=== PATIENT | female | born 1955 | race Caucasian/White ===

== ENCOUNTER 2020-07-08 13:27 | Emergency (ER) | payer MEDICARE, OTHER ==
[2020-07-08 13:33] VITALS: TEMP 97.6
[2020-07-08 14:26] LABS: Basophils # (A) 0.1 k/uL (0-0.2); Basophils % (A) 1 %; Eosinophils # (A) 0.2 k/uL (0-0.7); Eosinophils % (A) 3 %; HCT 46.1 % (34.0-46.0); HGB 15.6 gm/dL (11.4-16.0); Lymphocytes # (A) 1.2 k/uL (1.0-4.8); Lymphocytes % (A) 14 %; MCH 33.5 pg (25.0-35.0); MCHC 33.8 g/dL (31.0-37.0); MCV 99.2 fL (80.0-100.0); Mean Platelet Volume 8.2; Monocytes # (A) 0.5 k/uL (0-1.0); Monocytes % (A) 6 %; Neutrophils % (A) 76 %; Platelet Count 265 k/uL (150-450); RBC 4.65 m/uL (3.80-5.40); WBC 9.1 k/uL (3.8-10.6)
[2020-07-08 14:37] LABS: ALT 15 U/L (4-34); AST 36 U/L (14-36); African American GFR (CKD) >90 (>60 ml/min/1.73 sqM); Albumin 3.9 g/dL (3.5-5.0); Alkaline Phosphatase 77 U/L (38-126); Amylase 48 U/L (30-110); Anion Gap 8 mmol/L; Blood Urea Nitrogen 17 mg/dL (7-17); Calcium 9.1 mg/dL (8.4-10.2); Carbon Dioxide 35 mmol/L (22-30); Chloride 87 mmol/L (98-107); Glucose 132 mg/dL (74-99); Lipase 187 U/L (23-300); Non-African American GFR(CKD) >90 (>60 ml/min/1.73 sqM); Sodium 130 mmol/L (137-145); Total Bilirubin 0.8 mg/dL (0.2-1.3); Total Protein 7.7 g/dL (6.3-8.2)
[2020-07-08 14:39] LABS: Potassium 3.3 mmol/L (3.5-5.1)
--- NOTE | 2020-07-08 14:52 | XR ---
EXAMINATION TYPE: XR abdomen acute w cxr DATE OF EXAM: 07/08/2020 COMPARISON: NONE HISTORY: Abdominal pain and discomfort TECHNIQUE: Supine, upright, and left side down lateral decubitus views of the abdomen are obtained. FINDINGS: Limited inspiration. Subsegmental changes at the right lung base. Heart size upper limits o f normal. Curvature of the spine with arthropathy of the shoulders. Atherosclerotic change aorta. Calcifications in the pelvis are nonspecific but likely vascular. Scoliosis of the spine. Findings yi spicious for gallstones in the right upper quadrant. Air-fluid levels and prominent small bowel loops in the left abdomen. Hypertrophic change of the acetabulum noted. IMPRESSION: 1. Nonspecific abdomen with prominent small bowel loops and air-fluid levels could been the basis of an localized ileus, enteritis or partial obstructive pattern. Correlate clinically. 2. Probable gallstones. 3. Right basilar atelectasis favored over early infiltrate.
[2020-07-08 15:38] LABS: Appearance,Urine Cloudy (Clear); Bacteria,Urine Rare /hpf; Bilirubin,Urine Negative (Negative); Blood,Urine Negative (Negative); Color,Urine Yellow; Glucose,Urine (UA) Negative (Negative); Ketones,Urine 1+ (Negative); Leukocyte Esterase,Urine Negative (Negative); Mucus,Urine Rare /hpf; Nitrite,Urine Negative (Negative); PH, Urine 5.5 (5.0-8.0); Protein,Urine Trace (Negative); Specific Gravity,Urine 1.018 (1.001-1.035); Squamous Epithelial Cell,Urine 5 /hpf (0-4); WBC,Urine 2 /hpf (0-5)
--- NOTE | 2020-07-08 15:39 | CT ---
EXAMINATION TYPE: CT abdomen pelvis w con DATE OF EXAM: 07/08/2020 COMPARISON: None INDICATION: constipation DLP: 1630.1 mGycm, Automated exposure control for dose reduction was used. CONTRAST: 100 mL of Isovue 300. Study performed without Oral Contrast TECHNIQUE: Axial images were obtained from above the diaphragm to the pubic rami in the axial plane a t 5 mm thick sections. Reconstructed images are reviewed on the computer in the coronal plane. FINDINGS: There is an anterior abdominal wall hernia with an opening of 4.2 cm. This is containing sm all bowel loops as well as some fluid. There are prominent small bowel loops within the abdomen and p tiarra. Some wall thickening may be within the inferior small bowel loops. Small bowel loops distal to this area may has somewhat thickened wall immediate partially dilated. Limited CT sections are obtained the lung bases. The lung bases are clear. CT ABDOMEN: There is a small to moderate amount of ascites present. Liver: Some nonspecific small hypodensities are scattered within the liver. These are indistinct and are nonspecific. Small cysts could be considered. Spleen: Normal Pancreas: Normal Adrenal glands: The adrenal glands are normal. Gallbladder: Multiple gallstones are present. Kidneys: No masses are evident. No hydronephrosis is present. No cysts are present. Delayed images were obtained through the kidneys, which remain unremarkable. Aorta: Vascular calcification is within the aorta. Inferior vena cava: Normal. CT PELVIS: Visualized portions of the colon appear normal. This study is without oral contrast limiting bowel ev aluation. Appendix: Not visualized. No suspicious dilated tubular structures or inflammatory changes are eviden t. Urinary bladder: Some urinary bladder wall thickening may be present. Genitourinary structures: Uterus and ovaries are not identified. Osseous structures: Scoliosis is present. Degenerative changes are through the sacroiliac joints. IMPRESSIONS: 1. Anterior abdominal wall hernia containing loops of small bowel. 2. Small bowel wall thickening within the pelvis. Correlate for ileus. Partial obstruction could be c onsidered. 3. Cholelithiasis. 4. Ascites
[2020-07-08] MEDS ORDERED: MAGNESIUM CITRATE 296 ML BOTTLE PO ONE (16:09)
[2020-07-08] MEDS ORDERED: NA PHOS,M-B/NA PHOS,DI-BA 133 ML ENEMA RECTAL STA (16:09)
--- NOTE | 2020-07-08 16:22 | ED ---
Abdominal Pain HPI - General Chief Complaint: Abdominal Pain Stated Complaint: Constipation Time Seen by Provider: 07/08/20 13:44 Source: patient Mode of arrival: ambulatory Limitations: no limitations - History of Present Illness Initial Comments: Patient complains of decreased bowel movements. She also has a swelling in the anterior abdominal wall. Patient has no chest pain. She has no back pain. She has no shortness of breath. She has no nausea or vomiting. She has no blood in the stool. She has no black or tarry stool. She denies any sick contacts. She denies injuries. She has no lightheadedness or dizziness. - Related Data Home Medications Medication Instructions Recorded Confirmed Aspirin 325 mg PO DAILY PRN 07/08/20 07/08/20 Allergies Allergy/AdvReac Type Severity Reaction Status Date / Time No Known Allergies Allergy Verified 07/08/20 15:50 Review of Systems ROS Statement: Those systems with pertinent positive or pertinent negative responses have been documented in the HPI. ROS Other: All systems not noted in ROS Statement are negative. Past Medical History Past Medical History: No Reported History History of Any Multi-Drug Resistant Organisms: None Reported Past Surgical History: Appendectomy, Hysterectomy Past Psychological History: No Psychological Hx Reported Smoking Status: Current every day smoker Past Alcohol Use History: Daily Past Drug Use History: None Reported General Exam Limitations: no limitations General appearance: alert, in no apparent distress Head exam: Present: atraumatic, normocephalic, normal inspection Eye exam: Present: normal appearance, PERRL, EOMI. Absent: scleral icterus, conjunctival injection, periorbital swelling ENT exam: Present: normal exam, mucous membranes moist Neck exam: Present: normal inspection. Absent: tenderness, meningismus, lymphadenopathy Respiratory exam: Present: normal lung sounds bilaterally. Absent: respiratory distress, wheezes, rales, rhonchi, stridor Cardiovascular Exam: Present: regular rate, normal rhythm, normal heart sounds. Absent: systolic murmur, diastolic murmur, rubs, gallop, clicks GI/Abdominal exam: Present: soft, distended. Absent: tenderness, guarding, rebo und, rigid Extremities exam: Present: normal inspection, full ROM, normal capillary refill. Absent: tenderness, pedal edema, joint swelling, calf tenderness Back exam: Present: normal inspection Neurological exam: Present: alert, oriented X3, CN II-XII intact Psychiatric exam: Present: normal affect, normal mood Skin exam: Present: warm, dry, intact, normal color. Absent: rash Course Vital Signs 07/08/20 07/08/20 13:29 15:24 Temperature 97.6 F Pulse Rate 96 85 Respiratory 20 18 Rate Blood Pressure 150/90 100/59 O2 Sat by Pulse 98 96 Oximetry Medical Decision Making - Medical Decision Making Patient has a reducible hernia based on my physical examination and the CAT scan. There is no evidence of traction or incarceration or strangulation. Patient is given medication for her constipation. She is stable for discharge. - Lab Data Result diagrams: 07/08/20 14:10 07/08/20 14:10 Lab Results 07/08/20 07/08/20 07/08/20 Range/Units 14:10 14:10 14:10 WBC 9.1 (3.8-10.6) k/uL RBC 4.65 (3.80-5.40) m/uL Hgb 15.6 (11.4-16.0) gm/dL Hct 46.1 H (34.0-46.0) % MCV 99.2 (80.0-100.0) fL MCH 33.5 (25.0-35.0) pg MCHC 33.8 (31.0-37.0) g/dL RDW 13.0 (11.5-15.5) % Plt Count 265 (150-450) k/uL MPV 8.2 Neutrophils % 76 % Lymphocytes % 14 % Monocytes % 6 % Eosinophils % 3 % Basophils % 1 % Neutrophils # 7.0 (1.3-7.7) k/uL Lymphocytes # 1.2 (1.0-4.8) k/uL Monocytes # 0.5 (0-1.0) k/uL Eosinophils # 0.2 (0-0.7) k/uL Basophils # 0.1 (0-0.2) k/uL Sodium 130 L (137-145) mmol/L Potassium 3.3 L (3.5-5.1) mmol/L Chloride 87 L (98-107) mmol/L Carbon Dioxide 35 H (22-30) mmol/L Anion Gap 8 mmol/L BUN 17 (7-17) mg/dL Creatinine 0.63 (0.52-1.04) mg/dL Est GFR (CKD-EPI)AfAm >90 (>60 ml/min/1.73 sqM) Est GFR (CKD-EPI)NonAf >90 (>60 ml/min/1.73 sqM) Glucose 132 H (74-99) mg/dL Calcium 9.1 (8.4-10.2) mg/dL Total Bilirubin 0.8 (0.2-1.3) mg/dL AST 36 (14-36) U/L ALT 15 (4-34) U/L Alkaline Phosphatase 77 (38-126) U/L Total Protein 7.7 (6.3-8.2) g/dL Albumin 3.9 (3.5-5.0) g/dL Amylase 48 (30-110) U/L Lipase 187 (23-300) U/L Urine Color Yellow Urine Appearance Cloudy H (Clear) Urine pH 5.5 (5.0-8.0) Ur Specific Dietrich 1.018 (1.001-1.035) Urine Protein Trace H (Negative) Urine Glucose (UA) Negative (Negative) Urine Ketones 1+ H (Negative) Urine Blood Negative (Negative) Urine Nitrite Negative (Negative) Urine Bilirubin Negative (Negative) Urine Urobilinogen 2.0 (<2.0) mg/dL Ur Leukocyte Esterase Negative (Negative) Urine WBC 2 (0-5) /hpf Ur Squamous Epith Cells 5 H (0-4) /hpf Urine Bacteria Rare H (None) /hpf Urine Mucus Rare H (None) /hpf Disposition Clinical Impression: Constipation Disposition: HOME SELF-CARE Condition: Good Instructions (If sedation given, give patient instructions): Constipation (ED) Is patient prescribed a controlled substance at d/c from ED?: No Referrals: None,Stated [Primary Care Provider] - 1-2 days Yoseph Helms MD [STAFF PHYSICIAN] - 1-2 days
[2020-07-08 17:49] VITALS: BP 138/87; PULSE 86; RESP 16
== END 2020-07-08 17:49 | disposition home or self-care (01) ==
LOC: EC 13:27
DX: K59.00 Constipation, unspecified (principal); F17.200 Nicotine dependence, unspecified, uncomplicated; Z90.49 Acquired absence of other specified parts of digestive tract; Z90.710 Acquired absence of both cervix and uterus
CPT/HCPCS: 36415; 80053; 82150; 83690; 85025; 81001; 74022; 74177; 99284; Q9967

== ENCOUNTER 2023-01-14 20:46 | Observation (INO) | payer OTHER, MEDICARE ==
--- NOTE | 2023-01-14 21:49 | ED ---
Fall HPI - General Source: patient Mode of arrival: wheelchair <Michael Yeager - Last Filed: 01/14/23 21:45> <Ricco Alvarez - Last Filed: 01/15/23 03:13> - General Chief Complaint: Fall Stated Complaint: fall Time Seen by Provider: 01/14/23 21:46 - History of Present Illness Initial Comments: 67-year-old female presenting with chief complaint of rib pain. Patient had a fall about 3 weeks ago. She also reports clear runny nasal discharge. (Michael Yeager) Dictation was produced using [employer] dictation software. please excuse any grammatical, word or spelling errors. Chief Complaint: 67-year-old female presents emergency department for multiple complaints History of Present Illness: This 67-year-old female she is brought to the emergency department by her son. Patient states she is here because she is worried about having a cracked rib from a fall she suffered 4-5 weeks ago. Son provides a completely different history states that for the last several weeks she's been having worsening lethargy, abdominal pain, nausea and vomiting. She states that she has several months of a ventral wall hernia. She states she's been evaluated by general surgery however she states that she was told that her hernia is inoperable. Patient having significant abdominal pain according to t he son. Denies any fever or constitutional symptoms. The ROS documented in this emergency department record has been reviewed and confirmed by me. Those systems with pertinent positive or negative responses have been documented in the HPI. All other systems are other negative and/or noncontributory. (Ricco Alvarez) - Related Data Home Medications Medication Instructions Recorded Confirmed Aspirin 325 mg PO DAILY PRN 07/08/20 07/08/20 Allergies Allergy/AdvReac Type Severity Reaction Status Date / Time No Known Allergies Allergy Verified 01/14/23 21:50 Review of Systems ROS Other: All systems not noted in ROS Statement are negative. <Michael Yeager - Last Filed: 01/14/23 21:45> ROS Other: All systems not noted in ROS Statement are negative. <Ricco Alvarez - Last Filed: 01/15/23 03:13> ROS Statement: Those systems with pertinent positive or pertinent negative responses have been documented in the HPI. Past Medical History Past Medical History: No Reported History Additional Past Medical History / Comment(s): Hernia History of Any Multi-Drug Resistant Organisms: None Reported Past Surgical History: Appendectomy, Hysterectomy Past Psychological History: No Psychological Hx Reported Smoking Status: Current every day smoker Past Alcohol Use History: Daily Past Drug Use History: None Reported <Michael Yeager - Last Filed: 01/14/23 21:45> General Exam <Michael Yeager - Last Filed: 01/14/23 21:45> <Ricco Alvarez - Last Filed: 01/15/23 03:13> - General Exam Comments Initial Comments: Visual Physical Exam Vital signs reviewed General: Well-appearing, nontoxic, no acute distress. Head: Normocephalic, atraumatic Eyes: PERRLA, EOMI ENT: Airway patent Chest: Nonlabored breathing Skin: No visual rash, normal skin tone Neuro: Alert and oriented 3 Musculoskeletal: No gross abnormalities (Michael Yeager) PHYSICAL EXAM: General Impression: Alert and oriented x3, not in acute distress HEENT: Normocephalic atraumatic, extra-ocular movements intact, pupils equal and reactive to light bilaterally, mucous membranes moist. Cardiovascular: Heart regular rate and rhythm Chest: Able to complete full sentences, no retractions, no tachypnea Abdomen: abdomen soft, distended abdomen with large ventral wall hernia, hernia is irreducible it is tender to palpation, no overlying skin erythema, tympany to percussion of the entire abdomen Musculoskeletal: Pulses present and equal in all extremities, no peripheral edema Motor: no focal deficits noted Neurological: CN II-XII grossly intact, no focal motor or sensory deficits noted Skin: Intact with no visualized rashes Psych: Normal affect and mood (Ricco Alvarez) Course Vital Signs 01/14/23 01/15/23 01/15/23 21:42 02:11 02:57 Temperature 98.8 F Pulse Rate 77 92 98 Respiratory 20 18 17 Rate Blood Pressure 131/77 111/63 104/67 O2 Sat by Pulse 99 96 96 Oximetry Medical Decision Making - Lab Data Result diagrams: 01/15/23 00:09 01/15/23 00:09 <Ricco Alvarez - Last Filed: 01/15/23 03:13> - Medical Decision Making My EKG interpretation: Ventricular rate 99, sinus rhythm,. Interval 141, QRS 94, QTC 427. No OR prolongation, no QTC prolongation. T wave inversions 1 in aVL No old EKG for comparison. Overall this EKG is nonspecific Was pt. sent in by a medical professional or institution ([facility], [employer], urgent care, hospital, or assisted...) When possible be specific @ -No Did you speak to anyone other than the patient for history (EMS, parent, family, police, friend...)? What history was obtained from this source @ -No Did you review nursing and triage notes (agree or disagree)? Why? @ -I reviewed and agree with nursing and triage notes Were old charts reviewed (outside hosp., previous admission, EMS record, old EKG, old radiological studies, urgent care reports/EKG's, assisted records)? Report findings @ -No old charts were reviewed Differential Diagnosis (chest pain, altered mental status, abdominal pain women, abdominal pain men, vaginal bleeding, musculoskeletal, weakness, fever, dyspnea, syncope, headache, dizziness, GI bleed, back pain, seizure, CVA, palpatations, mental health)? @ -Differential Abdominal Pain Women: Appendicitis, Cholecystitis, diverticulosis, ischemic bowel, pancreatitis, hepatitis, UTI, gastroenteritis, AAA, incarcerated hernia, bowel obstruction, constipation, inflammatory bowel, hepatitis, peptic ulcer disease, splenic infarction, perforated viscus, vulvitis, ovarian torsion, PID, kidney stone, placenta abruption, this is not meant to be an all-inclusive list EKG interpreted by me (3pts min.). @ -See above X-rays interpreted by me (1pt min.). @ -She was not acute CT interpreted by me (1pt min.). @ -CT shows incarcerated hernia with abdominal ascites U/S interpreted by me (1pt. min.). @ -None done What testing was considered but not performed or refused? (CT, X-rays, U/S, lab s)? Why? @ -None What meds were considered but not given or refused? Why? @ -None Did you discuss the management of the patient with other professionals (professionals i.e. [facility]ksdale, [employer] S[employer]WRITER, lab, RT, psych nurse, high school social science teacher, retail sales advisor, teacher, major gifts officer, registered nurse hh case manager)? Give summary @ -Discussed Dr. Servin for admission. Case also discussed with Dr. Dawn regarding hernia Was smoking cessation discussed for >3mins.? @ -No Was critical care preformed (if so, how long)? @ -No Were there social determinants of health that impacted care today? How? (Homelessness, low income, unemployed, alcoholism, drug addiction, transportation, low edu. Level, literacy, decrease access to med. care, penitentiary, rehab)? @ -No Was there de-escalation of care discussed even if they declined (Discuss DNR or withdrawal of care, Hospice)? DNR status @ -No What co-morbidities impacted this encounter? (DM, HTN, Smoking, COPD, CAD, Cancer, CVA, ARF, Chemo, Hep., AIDS, mental health diagnosis, sleep apnea, morbid obesity)? @ -None Was patient admitted / discharged? Hospital course, mention meds given and rout e, prescriptions, significant lab abnormalities, going to OR and other pertinent info. @ -67-year-old female presents emergency problem with abdominal pain, worsening weakness. Vital signs upon arrival are within acceptable limits. Clinical presentation consistent incarcerated abdominal wall hernia. Patient also has findings of infiltrative liver process and worsening ascites. Patient be admitted with consultation to general surgery. Patient also hypomagnesemic with the level of 1.1. Patient treated with parenteral magnesium. Undiagnosed new problem with uncertain prognosis? @ -No Drug Therapy requiring intensive monitoring for toxicity (Heparin, Nitro, Insulin, Cardizem)? @ -No Were any procedures done? @ -No Diagnosis/symptom? Acute, or Chronic, or Acute on Chronic? Uncomplicated (without systemic symptoms) or Complicated (systemic symptoms)? @ -Abdominal pain Side effects of treatment? @ -No Exacerbation, Progression, or Severe Exacerbation? @ -No Poses a threat to life or bodily function? How? (Chest pain, [place], [place], pneumonia, PE, COPD, DKA, ARF, appy, cholecystitis, CVA, Diverticulitis, Homicidal, Suicida l, threat to staff... and all critical care pts) @ -yes (Ricco Alvarez) - Lab Data Lab Results 01/14/23 01/15/23 01/15/23 Range/Units 23:08 00:09 00:09 WBC 7.1 (3.8-10.6) k/uL RBC 2.93 L (3.80-5.40) m/uL Hgb 11.4 (11.4-16.0) gm/dL Hct 35.2 (34.0-46.0) % MCV 120.0 H (80.0-100.0) fL MCH 38.8 H (25.0-35.0) pg MCHC 32.4 (31.0-37.0) g/dL RDW 15.5 (11.5-15.5) % Plt Count 204 (150-450) k/uL MPV 8.7 Neutrophils % 79 % Lymphocytes % 11 % Monocytes % 5 % Eosinophils % 2 % Basophils % 0 % Neutrophils # 5.6 (1.3-7.7) k/uL Lymphocytes # 0.8 L (1.0-4.8) k/uL Monocytes # 0.3 (0-1.0) k/uL Eosinophils # 0.2 (0-0.7) k/uL Basophils # 0.0 (0-0.2) k/uL Manual Slide Review Performed Anisocytosis (manual) Present Macrocytosis Marked A Target Cells Present PT 14.1 H (9.0-12.0) sec INR 1.4 H (<1.2) APTT 23.8 (22.0-30.0) sec Sodium (137-145) mmol/L Potassium (3.5-5.1) mmol/L Chloride (98-107) mmol/L Carbon Dioxide (22-30) mmol/L Anion Gap mmol/L BUN (7-17) mg/dL Creatinine (0.52-1.04) mg/dL Est GFR (CKD-EPI)AfAm (>60 ml/min/1.73 sqM) Est GFR (CKD-EPI)NonAf (>60 ml/min/1.73 sqM) Glucose (74-99) mg/dL Plasma Lactic Acid Tl (0.7-2.0) mmol/L Calcium (8.4-10.2) mg/dL Magnesium (1.6-2.3) mg/dL Total Bilirubin (0.2-1.3) mg/dL AST (14-36) U/L ALT (4-34) U/L Alkaline Phosphatase (38-126) U/L Total Protein (6.3-8.2) g/dL Albumin (3.5-5.0) g/dL Influenza Type A (PCR) Not Detected (Not Detectd) Influenza Type B (PCR) Not Detected (Not Detectd) RSV (PCR) Not Detected (Not Detectd) SARS-CoV-2 (PCR) Not Detected (Not Detectd) 01/15/23 01/15/23 Range/Units 00:09 00:09 WBC (3.8-10.6) k/uL RBC (3.80-5.40) m/uL Hgb (11.4-16.0) gm/dL Hct (34.0-46.0) % MCV (80.0-100.0) fL MCH (25.0-35.0) pg MCHC (31.0-37.0) g/dL RDW (11.5-15.5) % Plt Count (150-450) k/uL MPV Neutrophils % % Lymphocytes % % Monocytes % % Eosinophils % % Basophils % % Neutrophils # (1.3-7.7) k/uL Lymphocytes # (1.0-4.8) k/uL Monocytes # (0-1.0) k/uL Eosinophils # (0-0.7) k/uL Basophils # (0-0.2) k/uL Manual Slide Review Anisocytosis (manual) Macrocytosis Target Cells PT (9.0-12.0) sec INR (<1.2) APTT (22.0-30.0) sec Sodium 135 L (137-145) mmol/L Potassium 3.1 L (3.5-5.1) mmol/L Chloride 97 L (98-107) mmol/L Carbon Dioxide 30 (22-30) mmol/L Anion Gap 8 mmol/L BUN 9 (7-17) mg/dL Creatinine 0.49 L (0.52-1.04) mg/dL Est GFR (CKD-EPI)AfAm >90 (>60 ml/min/1.73 sqM) Est GFR (CKD-EPI)NonAf >90 (>60 ml/min/1.73 sqM) Glucose 112 H (74-99) mg/dL Plasma Lactic Acid Tl 1.9 (0.7-2.0) mmol/L Calcium 8.2 L (8.4-10.2) mg/dL Magnesium 1.1 L (1.6-2.3) mg/dL Total Bilirubin 1.6 H (0.2-1.3) mg/dL AST 97 H (14-36) U/L ALT 26 (4-34) U/L Alkaline Phosphatase 146 H (38-126) U/L Total Protein 6.4 (6.3-8.2) g/dL Albumin 2.9 L (3.5-5.0) g/dL Influenza Type A (PCR) (Not Detectd) Influenza Type B (PCR) (Not Detectd) RSV (PCR) (Not Detectd) SARS-CoV-2 (PCR) (Not Detectd) Disposition <Michael Yeager - Last Filed: 01/14/23 21:45> Decision Time: 03:13 <Ricco Alvarez - Last Filed: 01/15/23 03:13> Clinical Impression: Abdominal pain Disposition: ADMITTED IP TO THIS HOSP Condition: Fair Referrals: Ellen Garcia MD [STAFF PHYSICIAN] - 1-2 days
--- NOTE | 2023-01-14 22:13 | XR ---
EXAMINATION TYPE: XR chest 2V DATE OF EXAM: 01/14/2023 9:59 PM COMPARISON: None TECHNIQUE: XR chest 2V Frontal and lateral views of the chest. CLINICAL INDICATION:Female, 67 years old with history of rib pain; FINDINGS: Lungs/Pleura: There is no evidence of pleural effusion, focal consolidation, or pneumothorax. Pulmonary vascularity: Unremarkable. Heart/mediastinum: Cardiomediastinal silhouette is unremarkable. Musculoskeletal: No acute osseous pathology. IMPRESSION: No acute cardiopulmonary disease/process.
[2023-01-15] MEDS ORDERED: SODIUM CHLORIDE 0.9% 1,000 ML IV STA (00:04)
[2023-01-15 01:08] LABS: ALT 26 U/L (4-34); AST 97 U/L (14-36); African American GFR (CKD) >90 (>60 ml/min/1.73 sqM); Albumin 2.9 g/dL (3.5-5.0); Alkaline Phosphatase 146 U/L (38-126); Anion Gap 8 mmol/L; Blood Urea Nitrogen 9 mg/dL (7-17); Calcium 8.2 mg/dL (8.4-10.2); Carbon Dioxide 30 mmol/L (22-30); Chloride 97 mmol/L (98-107); Glucose 112 mg/dL (74-99); Magnesium 1.1 mg/dL (1.6-2.3); Non-African American GFR(CKD) >90 (>60 ml/min/1.73 sqM); Potassium 3.1 mmol/L (3.5-5.1); Sodium 135 mmol/L (137-145); Total Bilirubin 1.6 mg/dL (0.2-1.3); Total Protein 6.4 g/dL (6.3-8.2)
[2023-01-15] MEDS ORDERED: POTASSIUM CHLORIDE 20 MEQ in WATER FOR INJECTION 1 100ML.BAG IVPB STA (01:21)
[2023-01-15 01:22] LABS: INR 1.4 (<1.2); Partial Thromboplastin Time 23.8 sec (22.0-30.0); Prothrombin Time 14.1 sec (9.0-12.0)
[2023-01-15] MEDS: MAGNESIUM SULFATE-D5W PMX 1 GM in DEXTROSE/WATER 1 100ML.BAG IVPB SCH ×2 (01:29→02:29)
[2023-01-15 01:53] LABS: Basophils % (A) 0 %; Eosinophils # (A) 0.2 k/uL (0-0.7); Eosinophils % (A) 2 %; HCT 35.2 % (34.0-46.0); HGB 11.4 gm/dL (11.4-16.0); Lymphocytes # (A) 0.8 k/uL (1.0-4.8); Lymphocytes % (A) 11 %; MCH 38.8 pg (25.0-35.0); MCHC 32.4 g/dL (31.0-37.0); Macrocytosis Marked; Mean Platelet Volume 8.7; Monocytes # (A) 0.3 k/uL (0-1.0); Monocytes % (A) 5 %; Neutrophils # (A) 5.6 k/uL (1.3-7.7); Neutrophils % (A) 79 %; Platelet Count 204 k/uL (150-450); RBC 2.93 m/uL (3.80-5.40); RDW 15.5 % (11.5-15.5); WBC 7.1 k/uL (3.8-10.6)
[2023-01-15 02:59] LABS: Anisocytosis (M) Present
--- NOTE | 2023-01-15 02:59 | CT ---
EXAM: CT Abdomen and Pelvis With Intravenous Contrast CLINICAL HISTORY: ITS.REASON CT Reason: abdominal pain TECHNIQUE: Axial computed tomography images of the abdomen and pelvis with intravenous contrast. CTDI is 16.5 mGy and DLP is 1772.2 mGy-cm. This CT exam was performed using one or more of the following dose reduction techniques: automated exposure control, adjustment of the mA and/or kV according to patient size, and/or use of iterative reconstruction technique. COMPARISON: 07/08/2020 FINDINGS: Lung bases: Unremarkable. No mass. No consolidation. ABDOMEN: Liver: There is a somewhat heterogeneous enhancement pattern to the liver parenchyma suggesting underlying infiltrative process particularly within the caudate lobe which is markedly enlarged. MRI may be helpful for further evaluation. Gallbladder and bile ducts: Cholelithiasis. No ductal dilation. Pancreas: Unremarkable. No mass. No ductal dilation. Spleen: Unremarkable. No splenomegaly. Adrenals: Unremarkable. No mass. Kidneys and ureters: Unremarkable. No solid mass. No hydronephrosis. Stomach and bowel: See below. PELVIS: Appendix: No findings to suggest acute appendicitis. Bladder: Unremarkable. No mass. Reproductive: Unremarkable as visualized. ABDOMEN and PELVIS: Intraperitoneal space: Interval worsening in large intra-abdominal ascites with increasing fatty infiltration of the liver. No free air or intestinal obstruction. Bones/joints: No acute fracture. No dislocation. Soft tissues: See below. Vasculature: Portal hypertension with recanalization of the umbilical vein unchanged since prior exam gastric varices are present. Redemonstration of a left paracentral anterior abdominal wall hernia containing loops of unobstructed small bowel. No abdominal aortic aneurysm. Lymph nodes: Unremarkable. No enlarged lymph nodes. IMPRESSION: 1. Worsening hepatic cirrhosis now with an infiltrative process involving the entire liver concerning for underlying hepatic neoplasm such as hepatocellular carcinoma. MRI may be helpful for further evaluation 2. Portal hypertension 3. Marked intra-abdominal ascites worsened since prior exam. This may account for the patient's abdominal discomfort. 4. Left sided anterior abdominal wall supraumbilical hernia every 3 to double loops of unobstructed small bowel.
[2023-01-15 03:00] LABS: Target Cells Present
[2023-01-15] MEDS ORDERED: ASPIRIN 325 MG TAB PO PRN (06:22)
[2023-01-15] MEDS ORDERED: ONDANSETRON 4 MG/2 ML VIAL IVP PRN (06:23)
--- NOTE | 2023-01-15 06:27 | P.HPIM ---
History of Present Illness H&P Date: 01/15/23 Chief Complaint: Nausea vomiting 67-year-old female denies any significant past medical history she hasn't seen a doctor for over 3 years Slight clear to me why patient was admitted. ED doctor was concerned regarding incarcerated hernia for which wanted general surgery to evaluate the patient. Patient reports ventral abdominal hernia that's been dealing with for many years she was evaluated about 3 years ago and her surgeon told her that's she is not good candidate for surgery. She denies any constipation she reports frequent loose stools however over the past few days she noticed some repeated nausea vomiting with decreased by mouth intake and she made her feel weak for which she decided to come in for evaluation she denies any fevers or chills denies any abdominal pain except for the area of the hernia if she stands up for long time which is not new to her. Patient denies any fevers chills coughing chest pain or trouble breathing denies any changes in her bowel or urinary habits denies any GI bleeding. Her main concern is repeated nausea vomiting over the past few days with decreased by mouth intake. And noticed some increased leg swelling over the past 3 days She does admit to tobacco smoking and having at least 3 drinks every night. review of systems Pertinent positives as noted in HPI. All other systems were reviewed and are negative on exam Constitutional: No acute distress, conversant, pleasant Eyes: Anicteric sclerae, moist conjunctiva, Pupils equal round reactive to light ENMT: NC/AT Oropharynx clear, no erythema, or exudates Neck: Supple, no masses, or JVD No carotid bruits No thyromegaly Lungs: Clear to auscultation Clear to percussion Normal respiratory effort, no accessory muscle use Cardiovascular: Heart regular in rate and rhythm, No murmurs, gallops, or rubs +2 bilateral peripheral edema Abdominal: Soft Nontender, no guarding, rebound or rigidity Abdomen moving with respiration Normoactive bowel sounds Noticeable hepatomegaly was smooth sharp edge nontender No palpable mass Large ventral abdominal wall hernia in the periumbilical region soft to the touch nontender no skin changes Skin: Normal temperature, tone, texture, turgor No induration No subcutaneous nodules No rash, lesions No ulcers Extremities: No digital cyanosis No clubbing Pedal pulses intact and symmetrical Radial pulses intact and symmetrical No calf tenderness Psychiatric: Alert and oriented to person, place and time Neuro Muscles Strength 4/5 in all 4 extremities Sensation to light touch grossly present throughout Cranial nerves II-XII grossly intact Lymphatics: no palpable cervical or supraclavicular lymph nodes Past Medical History Past Medical History: No Reported History Additional Past Medical History / Comment(s): Hernia History of Any Multi-Drug Resistant Organisms: None Reported Past Surgical History: Appendectomy, Hysterectomy Past Psychological History: No Psychological Hx Reported Smoking Status: Current every day smoker Past Alcohol Use History: Daily Past Drug Use History: None Reported Medications and Allergies Home Medications Medication Instructions Recorded Confirmed Type Aspirin 325 mg PO DAILY PRN 07/08/20 07/08/20 History Allergies Allergy/AdvReac Type Severity Reaction Status Date / Time No Known Allergies Allergy Verified 01/14/23 21:50 Physical Exam Vitals: Vital Signs Temp Pulse Resp BP Pulse Ox 01/15/23 05:18 98 112/61 01/15/23 02:57 98 17 104/67 96 01/15/23 02:11 92 18 111/63 96 01/14/23 21:42 98.8 F 77 20 131/77 99 Intake and Output 01/14/23 01/14/23 01/15/23 14:59 22:59 06:59 Other: Weight 86.183 kg Results CBC & Chem 7: 01/15/23 00:09 01/15/23 00:09 Labs: Abnormal Lab Results - Last 24 Hours (Table) 01/15/23 01/15/23 01/15/23 Range/Units 00:09 00:09 00:09 RBC 2.93 L (3.80-5.40) m/uL MCV 120.0 H (80.0-100.0) fL MCH 38.8 H (25.0-35.0) pg Lymphocytes # 0.8 L (1.0-4.8) k/uL Macrocytosis Marked A PT 14.1 H (9.0-12.0) sec INR 1.4 H (<1.2) Sodium 135 L (137-145) mmol/L Potassium 3.1 L (3.5-5.1) mmol/L Chloride 97 L (98-107) mmol/L Creatinine 0.49 L (0.52-1.04) mg/dL Glucose 112 H (74-99) mg/dL Calcium 8.2 L (8.4-10.2) mg/dL Magnesium 1.1 L (1.6-2.3) mg/dL Total Bilirubin 1.6 H (0.2-1.3) mg/dL AST 97 H (14-36) U/L Alkaline Phosphatase 146 H (38-126) U/L Albumin 2.9 L (3.5-5.0) g/dL Assessment and Plan Assessment: 67-year-old female with no significant past medical history coming in for repeated nausea vomiting and discussed the case with the ED doctor and accepted the admission for surgery evaluation regarding her large periumbilical hernia with anticipated length of stay less than 2 midnights Large periumbilical ventral hernia with repeated nausea vomiting CT of the abdomen showed no evidence of obstruction, Symptomatic control with Zofran when necessary General surgery evaluation Advance diet as tolerated Hepatomegaly with liver cirrhosis Suspected secondary to underlying alcohol abuse CT imaging was suggestive of intrahepatic lesions to rule out possible neoplasia, along with ascites Consider referral to GI service as outpatient Liver enzymes showing AST 97 at L2 20 60, phosphatase 146 Hypomagnesemia Replace IV and follow-up levels Hypokalemia Replace IV and follow-up levels Renal function otherwise unremarkable BUN 9 creatinine 0.49 sodium 135 Hemoglobin 11.4 with macrocytosis White count 7.1 unremarkable Alcohol abuse Counseled regarding abstaining from alcohol Monitor for alcohol withdrawal Full code DVT prophylaxis heparin subcu 3 times a day
[2023-01-15] MEDS: HEPARIN SODIUM,PORCINE 5,000 UNIT/ML 1 ML VIAL SQ SCH ×2 (07:18→17:06)
[2023-01-15] MEDS ORDERED: NALOXONE 0.4 MG/ML 1 ML VIAL IV PRN (07:25)
--- NOTE | 2023-01-15 13:18 | P.GSCN ---
History of Present Illness Consult date: 01/15/23 History of present illness: CHIEF COMPLAINT: Nausea and vomiting HISTORY OF PRESENT ILLNESS: This is a 67-year-old female who presented with nausea and vomiting as well as abdominal pain. She also complains of having a fall 4 weeks ago. Patient has not been seen by a physician in over 3 years. She reports that she's had this large ventral hernia for about 5 years. Patient reports that she only has pain when hernia is pushed on. She reports having bowel movements. She had a computed tomography scan of the abdomen and pelvis that had shown a supraumbilical hernia that contains loops of small bowel with no evidence of obstruction. Patient does have a history of alcohol abuse with liver cirrhosis. Patient reports that she is still actively drinking. She drinks 3 glasses of vodka daily. Past surgical history does include appendectomy and hysterectomy. Patient reports that she has been seen by her surgeon for the ventral hernia and told that she was not a good surgical candidate. PAST MEDICAL HISTORY: See below PAST SURGICAL HISTORY: See below MEDICATIONS: See below ALLERGIES: See below SOCIAL HISTORY: No illicit drug use. REVIEW OF SYSTEMS: CONSTITUTIONAL: Denies fever or chills. HEENT: Denies blurred vision, vision changes, or eye pain. Denies hemoptysis CARDIOVASCULAR: Denies chest pain or pressure. RESPIRATORY: No shortness of breath. GASTROINTESTINAL: See HPI for pertinent findings HEMATOLOGIC: Denies bleeding disorders. GENITOURINARY: Denies any blood in urine or increased urinary frequency. SKIN: Denies pruitis. Denies rash. PHYSICAL EXAM: VITAL SIGNS: Reviewed GENERAL: Well-developed in no acute distress. ABDOMEN: Soft. Large ventral hernia above the umbilicus. Nontender. No skin discoloration. NEUROLOGIC: Alert and oriented. Cranial nerves II through XII grossly intact. LABORATORY DATA: WBC 7.1 hgb 11.4 platelets 204 INR 1.4 Sodium 135 potassium 3.1 creatinine 0.49 Total bili 1.6 AST 97 ALT 26 alk phos 146 albumin 2.9 IMAGING: Computed tomography scan abdomen and pelvis worsening hepatic cirrhosis now with an infiltrative process involving the entire liver concerning for underlying hepatic neoplasm such as hepatocellular carcinoma. Portal hypertension. Marked intra-abdominal ascites worsened since prior exam. This may account for patient's abdominal discomfort. Left-sided anterior abdominal wall supraumbilical umbilical hernia loops of unobstructed small bowel. ASSESSMENT: 1. Large Ventral hernia containing unobstructed loops of small bowel 2. History of alcoholic liver cirrhosis PLAN: -Patient is high risk for ventral hernia repair due to core morbidities. Patient declined any surgical intervention. We'll continue to observe. -Okay to resume a regular diet Physician Jingle Writer note has been reviewed by physician. Signing provider agrees with the documented findings, assessment, and plan of care. Past Medical History Past Medical History: No Reported History Additional Past Medical History / Comment(s): Hernia History of Any Multi-Drug Resistant Organisms: None Reported Past Surgical History: Appendectomy, Hysterectomy Past Psychological History: No Psychological Hx Reported Smoking Status: Current every day smoker Past Alcohol Use History: Daily Past Drug Use History: None Reported Medications and Allergies Home Medications Medication Instructions Recorded Confirmed Type No Known Home Medications 01/15/23 01/15/23 History Allergies Allergy/AdvReac Type Severity Reaction Status Date / Time No Known Allergies Allergy Verified 01/15/23 06:59 Surgical - Exam Vital Signs Temp Pulse Resp BP Pulse Ox 98.8 F 77 20 131/77 99 01/14/23 21:42 01/14/23 21:42 01/14/23 21:42 01/14/23 21:42 01/14/23 21:42 Results - Labs 01/15/23 00:09 01/15/23 00:09 Abnormal Lab Results - Last 24 Hours (Table) 01/15/23 01/15/23 01/15/23 Range/Units 00:09 00:09 00:09 RBC 2.93 L (3.80-5.40) m/uL MCV 120.0 H (80.0-100.0) fL MCH 38.8 H (25.0-35.0) pg Lymphocytes # 0.8 L (1.0-4.8) k/uL Macrocytosis Marked A PT 14.1 H (9.0-12.0) sec INR 1.4 H (<1.2) Sodium 135 L (137-145) mmol/L Potassium 3.1 L (3.5-5.1) mmol/L Chloride 97 L (98-107) mmol/L Creatinine 0.49 L (0.52-1.04) mg/dL Glucose 112 H (74-99) mg/dL Calcium 8.2 L (8.4-10.2) mg/dL Magnesium 1.1 L (1.6-2.3) mg/dL Total Bilirubin 1.6 H (0.2-1.3) mg/dL AST 97 H (14-36) U/L Alkaline Phosphatase 146 H (38-126) U/L Albumin 2.9 L (3.5-5.0) g/dL Diabetes panel 01/15/23 Range/Units 00:09 Sodium 135 L (137-145) mmol/L Potassium 3.1 L (3.5-5.1) mmol/L Chloride 97 L (98-107) mmol/L Carbon Dioxide 30 (22-30) mmol/L BUN 9 (7-17) mg/dL Creatinine 0.49 L (0.52-1.04) mg/dL Glucose 112 H (74-99) mg/dL Calcium 8.2 L (8.4-10.2) mg/dL AST 97 H (14-36) U/L ALT 26 (4-34) U/L Alkaline Phosphatase 146 H (38-126) U/L Total Protein 6.4 (6.3-8.2) g/dL Albumin 2.9 L (3.5-5.0) g/dL Calcium panel 01/15/23 Range/Units 00:09 Calcium 8.2 L (8.4-10.2) mg/dL Albumin 2.9 L (3.5-5.0) g/dL Pituitary panel 01/15/23 Range/Units 00:09 Sodium 135 L (137-145) mmol/L Potassium 3.1 L (3.5-5.1) mmol/L Chloride 97 L (98-107) mmol/L Carbon Dioxide 30 (22-30) mmol/L BUN 9 (7-17) mg/dL Creatinine 0.49 L (0.52-1.04) mg/dL Glucose 112 H (74-99) mg/dL Calcium 8.2 L (8.4-10.2) mg/dL Adrenal panel 01/15/23 Range/Units 00:09 Sodium 135 L (137-145) mmol/L Potassium 3.1 L (3.5-5.1) mmol/L Chloride 97 L (98-107) mmol/L Carbon Dioxide 30 (22-30) mmol/L BUN 9 (7-17) mg/dL Creatinine 0.49 L (0.52-1.04) mg/dL Glucose 112 H (74-99) mg/dL Calcium 8.2 L (8.4-10.2) mg/dL Total Bilirubin 1.6 H (0.2-1.3) mg/dL AST 97 H (14-36) U/L ALT 26 (4-34) U/L Alkaline Phosphatase 146 H (38-126) U/L Total Protein 6.4 (6.3-8.2) g/dL Albumin 2.9 L (3.5-5.0) g/dL
[2023-01-16] MEDS: HEPARIN SODIUM,PORCINE 5,000 UNIT/ML 1 ML VIAL SQ SCH ×4 (00:07→23:52)
[2023-01-16 08:59] LABS: HCT 31.4 % (37.2-46.3); HGB 10.3 d/dL (12.0-15.0); MCH 38.7 pg (27.0-32.0); MCHC 32.8 d/dL (32.0-37.0); Mean Platelet Volume 10.3 FL (9.5-12.2); NRBC Per 100 WBC 0 X 10*3/uL (0.00-0.01); Platelet Count 177 X 10*3/uL (140-440); RBC 2.66 X 10*6/uL (4.10-5.20); WBC 5.89 X 10*3/uL (4.50-10.00)
[2023-01-16 09:05] LABS: Blood Urea Nitrogen 7.2 mg/dL (9.0-27.0); Calcium 8.2 mg/dL (8.7-10.3); Carbon Dioxide 27.1 mmol/L (21.6-31.8); Chloride 99 mmol/L (96-109); Glucose 106 mg/dL (70-110); Potassium 4.1 mmol/L (3.5-5.5); Sodium 137 mmol/L (135-145)
[2023-01-16 09:41] LABS: Basophils # (A) 0.02 X 10*3/uL (0.00-0.10); Basophils % (A) 0.3 %; Eosinophils # (A) 0.13 X 10*3/uL (0.04-0.35); Eosinophils % (A) 2.2 %; Lymphocytes % (A) 15.3 %; Macrocytosis (M) 3+; Monocytes # (A) 0.48 X 10*3/uL (0.20-1.00); Monocytes % (A) 8.1 %; Neutrophils # (A) 4.34 X 10*3/uL (1.80-7.70); Neutrophils % (A) 73.8 %
--- NOTE | 2023-01-16 14:43 | P.PN ---
Subjective Progress Note Date: 01/16/23 No new complaints. Patient has not required a significant amount of nausea medication. However, she still has not had much in terms of diet. Seen by general surgery who would like to advance her diet to regular today. Gen: awake, alert HEENT: normocephalic, atraumatic, good hearing acuity, moist mucous membranes Resp: good air exchange, breathing comfortably with no accessory muscle use CVS: good distal perfusion x 4, GI: soft, NTTP, ND : no SPT, no CVAT, penning[place] catheter not present MSK: no pitting edema, no clubbing Neuro: non-focal, moving all extremities Psych: cooperative, euthymic mood Hospital course: 67-year-old woman with no reported medical history but who does not follow with a physician, with alcohol abuse disorder, presented for evaluation of poor by mouth intake, nausea, vomiting. In the emergency room, patient was afebrile, 131/77, heart rate 77, 99% on room air. CBC was remarkable for an MCV of 120. PT showed INR 1.4. Basic metabolic panel showed sodium 135, potassium 3.1, creatinine of 0.41. Liver function test showed a total bilirubin of 1.6, AST of 97, ALT 26, alkaline phosphatase 146, albumin 2.9. Influenza A, B, RSV, Covid were negative. Chest x-ray showed normal-sized heart, clear parenchyma bilaterally. CT of the abdomen/pelvis showed intra-abdominal ascites, hepatic cirrhosis with infiltrative process concerning for hepatic neoplasm. EKG showed sinus rhythm with occasional PVCs, low voltage. Case was discussed with emergency room fire incision was made to admit the patient to observation for nausea, vomiting, inability to tolerate by mouth. Assessment: Nausea, vomiting Poor by mouth intake Hyponatremia Hypokalemia Alcohol cirrhosis with ascites Ventral hernia Plan: Today, patient is afebrile, 112/72, heart rate 89, 98% on room air. CBC shows anemia done at 7.3. Basic metabolic panel shows improvement of sodium to 137, improvement of potassium to 4.1. Gen. surgery note reviewed, no indication for ventral hernia repair at this time Pending dietitian consult We'll need outpatient referral for likely hepatocellular carcinoma Alcohol cessation strongly advised Patient is full code Objective - Vital Signs Vital signs: Vital Signs Temp 97.9 F 01/16/23 07:20 Pulse 89 01/16/23 07:20 Resp 16 01/16/23 07:20 BP 112/72 01/16/23 07:20 Pulse Ox 98 01/16/23 07:20 FiO2 Intake & Output 01/15/23 01/16/23 01/16/23 18:59 06:59 18:59 Intake Total 240 Balance 240 Weight 86.183 kg Intake: Oral 240 Other: # Voids 2 2 # Bowel Movements 1 - Labs CBC & Chem 7: 01/16/23 05:27 01/16/23 05:27 Labs: Abnormal Lab Results - Last 24 Hours (Table) 01/16/23 01/16/23 Range/Units 05:27 05:27 RBC 2.66 L (4.10-5.20) X 10*6/uL Hgb 10.3 L (12.0-15.0) d/dL Hct 31.4 L (37.2-46.3) % MCV 118.0 H (80.0-97.0) FL MCH 38.7 H (27.0-32.0) pg RDW 16.0 H (11.5-14.5) % Macrocytosis (manual) 3+ A BUN 7.2 L (9.0-27.0) mg/dL Creatinine 0.5 L (0.6-1.5) mg/dL Calcium 8.2 L (8.7-10.3) mg/dL
[2023-01-16 14:59] VITALS: BMI 34.7
--- NOTE | 2023-01-16 16:41 | P.PN ---
Subjective Progress Note Date: 01/16/23 CHIEF COMPLAINT: Large ventral hernia HISTORY OF PRESENT ILLNESS: Patient denies abdominal pain. Denies any nausea or vomiting. She tolerated diet. She did have a bowel movement. Hemoglobin 10.3 PHYSICAL EXAM: VITAL SIGNS: Reviewed. GENERAL: Well-developed in no acute distress. HEENT: No sclera icterus. Extraocular movements grossly intact. Moist buccal mucosa. Head is atraumatic, normocephalic. ABDOMEN: Soft. Large ventral hernia. Nontender. No discoloration. NEUROLOGIC: Alert and oriented. Cranial nerves II through XII grossly intact. ASSESSMENT: 1. Chronic Large Ventral hernia containing unobstructed loops of small bowel 2. History of alcoholic liver cirrhosis PLAN: -Patient is high risk for ventral hernia repair due to core morbidities. Patient declined any surgical intervention. Recommend follow-up outpatient as needed -Abdominal binder ordered for support -Recommend follow-up with liver specialist for questionable hepatic neoplasm noted on computed tomography scan -Encouraged patient to refrain from alcohol use Physician Wool Washer note has been reviewed by physician. Signing provider agrees with the documented findings, assessment, and plan of care. Objective - Vital Signs Vital signs: Vital Signs Temp 97.7 F 01/16/23 15:00 Pulse 103 H 01/16/23 15:00 Resp 16 01/16/23 15:00 BP 92/63 01/16/23 15:00 Pulse Ox 98 01/16/23 15:00 FiO2 Intake & Output 01/15/23 01/16/23 01/16/23 18:59 06:59 18:59 Intake Total 480 Balance 480 Weight 86.183 kg 86.183 kg Intake: Oral 480 Other: # Voids 2 2 2 # Bowel Movements 1 - Labs CBC & Chem 7: 01/16/23 05:27 01/16/23 05:27 Labs: Abnormal Lab Results - Last 24 Hours (Table) 01/16/23 01/16/23 Range/Units 05:27 05:27 RBC 2.66 L (4.10-5.20) X 10*6/uL Hgb 10.3 L (12.0-15.0) d/dL Hct 31.4 L (37.2-46.3) % MCV 118.0 H (80.0-97.0) FL MCH 38.7 H (27.0-32.0) pg RDW 16.0 H (11.5-14.5) % Macrocytosis (manual) 3+ A BUN 7.2 L (9.0-27.0) mg/dL Creatinine 0.5 L (0.6-1.5) mg/dL Calcium 8.2 L (8.7-10.3) mg/dL
[2023-01-16] MEDS ORDERED: ARTIFICIAL TEARS OINTMENT 3.5 GM TUBE BOTH EYES PRN (16:47)
[2023-01-16] MEDS: SPIRONOLACTONE 25 MG TAB PO SCH (18:30)
[2023-01-16] MEDS: FUROSEMIDE 20 MG TAB PO SCH (18:30)
[2023-01-17 08:11] VITALS: BP 153/82; PULSE 102; RESP 22; TEMP 98.1
[2023-01-17] MEDS: SPIRONOLACTONE 25 MG TAB PO SCH (09:52)
[2023-01-17] MEDS: FUROSEMIDE 20 MG TAB PO SCH (09:52)
[2023-01-17] MEDS: HEPARIN SODIUM,PORCINE 5,000 UNIT/ML 1 ML VIAL SQ SCH (10:24)
--- NOTE | 2023-01-17 11:51 | P.DS ---
Providers Date of admission: 01/15/23 07:26 Expected date of discharge: 01/17/23 Attending physician: Max Servin MD Consults: 01/15/23 03:05 Consult Physician Routine Consulting Provider: Dc Dawn Consult Reason/Comments: incarcerated hernia Do you want consulting provider notified?: Yes Primary care physician: Stated None Hospital Course: Assessment: Nausea, vomiting Poor by mouth intake Hyponatremia Hypokalemia Alcohol cirrhosis with ascites Ventral hernia Hospital course: 67-year-old woman with no reported medical history but who does not follow with a physician, with alcohol abuse disorder, presented for evaluation of poor by mouth intake, nausea, vomiting. In the emergency room, patient was afebrile, 131/77, heart rate 77, 99% on room air. CBC was remarkable for an MCV of 120. PT showed INR 1.4. Basic metabolic panel showed sodium 135, potassium 3.1, creatinine of 0.41. Liver function test showed a total bilirubin of 1.6, AST of 97, ALT 26, alkaline phosphatase 146, albumin 2.9. Influenza A, B, RSV, Covid were negative. Chest x-ray showed normal-sized heart, clear parenchyma bilaterally. CT of the abdomen/pelvis showed intra-abdominal ascites, hepatic cirrhosis with infiltrative process concerning for hepatic neoplasm. EKG showed sinus rhythm with occasional PVCs, low voltage. Case was discussed with emergency room fire incision was made to admit the patient to observation for nausea, vomiting, inability to tolerate by mouth. Pts electrolyte abnormalities were resolved by day 2 of hospitalization. She was evaluated by surgery for hernia and was not deemed a surgical candidate for this. She was counseled on the findings of liver cirrhosis and likely hepatocellular carcinoma and highly reocmmened to keep her f/u appointments with GI for appropriate screening and diagnostics - this appointment was arranged by community mental health worker. She was also started on spironolactone and lasix for ascites related to liver cirrhosis. ETOH cessation was STRONGLY advised. I spent 45 minutes coordinating this discharge on 01/17 Gen: awake, alert HEENT: normocephalic, atraumatic, good hearing acuity, moist mucous membranes Resp: good air exchange, breathing comfortably with no accessory muscle use CVS: good distal perfusion x 4, GI: soft, NTTP, ND : no SPT, no CVAT, penning[place] catheter not present MSK: no pitting edema, no clubbing Neuro: non-focal, moving all extremities Psych: cooperative, euthymic mood Patient Condition at Discharge: Good Plan - Discharge Summary New Discharge Prescriptions: New Spironolactone [Aldactone] 25 mg PO DAILY #30 tab Furosemide [Lasix] 20 mg PO DAILY #30 tab Discharge Medication List Furosemide [Lasix] 20 mg PO DAILY #30 tab 01/17/23 [Rx] Spironolactone [Aldactone] 25 mg PO DAILY #30 tab 01/17/23 [Rx] Follow up Appointment(s)/Referral(s): Roro Almanza MD [STAFF PHYSICIAN] - 1 Week Ellen Garcia MD [STAFF PHYSICIAN] - 1-2 days Dc Dawn MD [STAFF PHYSICIAN] - As Needed Discharge Disposition: HOME SELF-CARE
--- NOTE | 2023-01-17 14:14 | P.PN ---
Subjective Progress Note Date: 01/17/23 CHIEF COMPLAINT: Large ventral hernia HISTORY OF PRESENT ILLNESS: Patient denies abdominal pain. She sitting up at bedside chair. She had some nausea earlier that has improved. She is tolerating diet. She did receive her abdominal binder. She is scheduled for discharge today. PHYSICAL EXAM: VITAL SIGNS: Reviewed. GENERAL: Well-developed in no acute distress. ABDOMEN: Soft. Large ventral hernia. Nontender. No discoloration. NEUROLOGIC: Alert and oriented. Cranial nerves II through XII grossly intact. ASSESSMENT: 1. Chronic Large Ventral hernia containing unobstructed loops of small bowel 2. History of alcoholic liver cirrhosis PLAN: -Patient is high risk for ventral hernia repair due to core morbidities. Patient declined any surgical intervention. Recommend follow-up outpatient as needed -Recommend follow-up with liver specialist for questionable hepatic neoplasm noted on computed tomography scan -Encouraged patient to refrain from alcohol use -Patient can be discharged from surgical standpoint Physician Line Helper note has been reviewed by physician. Signing provider agrees with the documented findings, assessment, and plan of care. Objective - Vital Signs Vital signs: Vital Signs Temp 98.1 F 01/17/23 07:00 Pulse 102 H 01/17/23 07:00 Resp 22 01/17/23 07:00 BP 153/82 01/17/23 07:00 Pulse Ox 99 01/17/23 07:00 FiO2 Intake & Output 01/16/23 01/17/23 01/17/23 18:59 06:59 18:59 Intake Total 480 118 Balance 480 118 Weight 86.183 kg Intake: Oral 480 118 Other: # Voids 2 3 - Labs CBC & Chem 7: 01/16/23 05:27 01/16/23 05:27
== END 2023-01-17 14:15 | disposition home or self-care (01) ==
LOC: EC 20:46 → 6NMEDSUR 01-15 07:26
PROVIDERS: ADMIT Internal Medicine; ATTEND Internal Medicine
DX: K43.6 Other and unspecified ventral hernia with obstruction, without gangrene (principal); K70.31 Alcoholic cirrhosis of liver with ascites; E83.42 Hypomagnesemia; E87.6 Hypokalemia; E87.1 Hypo-osmolality and hyponatremia; D75.89 Other specified diseases of blood and blood-forming organs; F10.10 Alcohol abuse, uncomplicated; F17.200 Nicotine dependence, unspecified, uncomplicated; Z20.822 Contact with and (suspected) exposure to COVID-19; Z79.82 Long term (current) use of aspirin
CPT/HCPCS: 96368; 96361; 96365; 96366; 99285; 36415; 93005; 80053; 80048; 83605; 83735; 85025 ×2; 85610; 85730; 87636; 71046; 74177; G0378 ×3; J3480; J3475; Q9967

== ENCOUNTER 2023-02-25 11:09 | Inpatient (IN) | payer OTHER, MEDICARE ==
--- NOTE | 2023-02-25 11:33 | ED ---
General Adult HPI - General Chief complaint: Recheck/Abnormal Lab/Rx Stated complaint: Abn Labs Time Seen by Provider: 02/25/23 11:17 Source: EMS Mode of arrival: EMS Limitations: altered mental status - History of Present Illness Initial comments: The patient is a 67-year-old female with multiple comorbidities including renal failure, cirrhosis, delirium, cellulitis of the left lower extremity, CHF who presents to the emergency room via EMS for multiple complaints. Patient is currently at [facility] for treatment of cellulitis of the left leg and foot as well as cirrhosis. The patient was sent in by the infectious disease physician for further evaluation of worsening cellulitis. It is believed that the patient is receiving daptomycin and possibly cefepime ?! at the facility through an IV. Patient was supposed to have a PICC line placed however they cannot get a hold of the nephrologists for clearance to have this done. Patient developed a diffuse rash over the body at some point over the weekend. She has no complaints and does not state it is itchy. Her son at the bedside he is unsure if the patient has had vancomycin in the past however he states it sounds somewhat familiar. Patient states she is eating and drinking okay. She denies any fevers. limited ROS and HPI due to patients clinical condition and history of delirium. - Related Data Home Medications Medication Instructions Recorded Confirmed clonazePAM [KlonoPIN] 0.5 mg PO DAILY PRN 02/25/23 02/25/23 Previous Rx's Medication Instructions Recorded Spironolactone [Aldactone] 25 mg PO DAILY #30 tab 01/17/23 Cefepime [Maxipime] 1 gm IVPB Q12H 10 Days #20 ml 02/18/23 DAPTOmycin 250 mg IV Q2D 10 Days #5 each 02/18/23 Acetaminophen Tab [Tylenol] 500 mg PO Q6HR PRN tab 02/19/23 Folic Acid 1 mg PO DAILY tab 02/19/23 Furosemide [Lasix] 40 mg PO DAILY tab 02/19/23 Midodrine [ProAmatine] 10 mg PO AC-TID #90 tab 02/19/23 Thiamine [Vitamin B-1] 100 mg PO DAILY tab 02/19/23 Allergies Allergy/AdvReac Type Severity Reaction Status Date / Time No Known Allergies Allergy Verified 02/25/23 16:01 Review of Systems ROS Statement: Those systems with pertinent positive or pertinent negative responses have been documented in the HPI. ROS Other: All systems not noted in ROS Statement are negative. Past Medical History Past Medical History: No Reported History, Liver Disease, Renal Disease Additional Past Medical History / Comment(s): Hernia, anemia, metabolic encephalopathy, cirrohisis History of Any Multi-Drug Resistant Organisms: None Reported Past Surgical History: Appendectomy, Hysterectomy Past Anesthesia/Blood Transfusion Reactions: No Reported Reaction Past Psychological History: No Psychological Hx Reported Smoking Status: Current every day smoker Past Alcohol Use History: Daily, Heavy Past Drug Use History: None Reported General Exam Limitations: altered mental status General appearance: alert, in no apparent distress Head exam: Present: atraumatic Eye exam: Present: normal appearance, PERRL ENT exam: Present: normal exam Respiratory exam: Present: normal lung sounds bilaterally Cardiovascular Exam: Present: regular rate, normal rhythm GI/Abdominal exam: Present: soft Neurological exam: Present: alert Psychiatric exam: Present: normal affect, normal mood Skin exam: Present: warm (cellulitis of the left lower leg, healing left foot ulcer. chronic appearing mild erythema of the right lower leg), other (diffuse faint erythematous rash over the body. no open lesions, no excoriations) Course Vital Signs 02/25/23 02/25/23 02/25/23 11:15 13:08 14:39 Temperature 97.4 F L Pulse Rate 80 80 80 Respiratory 20 20 20 Rate Blood Pressure 95/71 97/78 125/76 O2 Sat by Pulse 100 100 96 Oximetry 02/25/23 16:52 Temperature Pulse Rate 86 Respiratory 20 Rate Blood Pressure 106/70 O2 Sat by Pulse 97 Oximetry - Reevaluation(s) Reevaluation #1: 02/25/23 2250 patient is resting in bed at this time. i will hold off on the antibiotics at this time given the diffuse rash and worsening renal failure. she was given IVFs. i discussed admission with family at bedside. Medical Decision Making - Medical Decision Making Was pt. sent in by a medical professional or institution (, PA, TOOL CHECKER, urgent care, hospital, or shelter...) When possible be specific @ -Sent in by infectious disease physician Dr. Vuong 8 for reevaluation at the worsening cellulitis Did you speak to anyone other than the patient for history (EMS, parent, family, police, friend...)? What history was obtained from this source @ -Spoke with the son who is initially at the bedside and then daughter who came to the bedside afterwards. Did you review nursing and triage notes (agree or disagree)? Why? @ -[I reviewed and agree with nursing and triage notes] Were old charts reviewed (outside hosp., previous admission, EMS record, old EKG, old radiological studies, urgent care reports/EKG's, shelter records)? Report findings @ -Yes old charts were reviewed. Differential Diagnosis (chest pain, altered mental status, abdominal pain women, abdominal pain men, vaginal bleeding, weakness, fever, dyspnea, syncope, headache, dizziness, GI bleed, back pain, seizure, CVA, palpatations, mental health, musculoskeletal)? @ -Worsening cellulitis, failed outpatient therapy, renal failure, failure to thrive, suspected medication reaction EKG interpreted by me (3pts min.). @ -[As above] X-rays interpreted by me (1pt min.). @ -[None done] CT interpreted by me (1pt min.). @ -CT shows cellulitis of the lower extremity but no well-defined abscess or m ass. Radiology report is pending for confirmation of acute changes since my evaluation is limited. U/S interpreted by me (1pt. min.). @ -[None done] What testing was considered but not performed or refused? (CT, X-rays, U/S, labs)? Why? @ -[None] What meds were considered but not given or refused? Why? @ -In fact however given patient's recent rash and worsening renal failure I will hold off on the IV antibiotics at this time and we will allow the admitting physician and infectious disease physician addiction to further evaluate and manage this. Did you discuss the management of the patient with other professionals (professionals i.e. , PA, TOOL CHECKER, lab, RT, psych nurse, social work supervisor, commercial management accountant, teacher, motorcycle police officer, lead case manager)? Give summary @ -Discussed patient's symptoms are And management with ED attending physician Dr Gallo today. Was smoking cessation discussed for >3mins.? @ -[No] Was critical care preformed (if so, how long)? @ -[No] Were there social determinants of health that impacted care today? How? (Homelessness, low income, unemployed, alcoholism, drug addiction, transportation, low edu. Level, literacy, decrease access to med. care, alf, rehab)? @ -[No] Was there de-escalation of care discussed even if they declined (Discuss DNR or withdrawal of care, Hospice)? DNR status @ -[No] What co-morbidities impacted this encounter? (DM, HTN, Smoking, COPD, CAD, Cancer, CVA, ARF, Chemo, Hep., AIDS, mental health diagnosis, sleep apnea, morb id obesity)? @ -Cirrhosis, acute kidney injury, recent hospital admission and rehab admission Was patient admitted / discharged? Hospital course, mention meds given and route, prescriptions, significant lab abnormalities, going to OR and other pertinent info. @ -The patient will be admitted to the hospital for further evaluation and management of the worsening left lower shimmery cellulitis, worse renal failure and medication reaction Undiagnosed new problem with uncertain prognosis? @ -[No] Drug Therapy requiring intensive monitoring for toxicity (Heparin, Nitro, Insulin, Cardizem)? @ -[No] Were any procedures done? @ -[No] Diagnosis/symptom? @ -Acute kidney injury, medication reaction, cellulitis of the lower extremity Acute, or Chronic, or Acute on Chronic? @ -Acute Uncomplicated (without systemic symptoms) or Complicated (systemic symptoms)? @ -Complicated Side effects of treatment? @ -[No] Exacerbation, Progression, or Severe Exacerbation? @ -[No] Poses a threat to life or bodily function? How? (Chest pain, USA, GA, pneumonia, PE, COPD, DKA, ARF, appy, cholecystitis, CVA, Diverticulitis, Homicidal, Suicidal, threat to staff... and all critical care pts) @ -[No] - Lab Data Result diagrams: 02/25/23 12:56 02/25/23 12:56 Lab Results 02/25/23 02/25/23 02/25/23 Range/Units 12:56 12:56 12:56 WBC 10.4 (3.8-10.6) k/uL RBC 3.17 L (3.80-5.40) m/uL Hgb 11.4 (11.4-16.0) gm/dL Hct 36.4 (34.0-46.0) % MCV 114.8 H (80.0-100.0) fL MCH 36.0 H (25.0-35.0) pg MCHC 31.4 (31.0-37.0) g/dL RDW 16.3 H (11.5-15.5) % Plt Count 245 (150-450) k/uL MPV 9.5 Neutrophils % 79 % Lymphocytes % 8 % Monocytes % 4 % Eosinophils % 6 % Basophils % 0 % Neutrophils # 8.2 H (1.3-7.7) k/uL Lymphocytes # 0.8 L (1.0-4.8) k/uL Monocytes # 0.5 (0-1.0) k/uL Eosinophils # 0.7 (0-0.7) k/uL Basophils # 0.0 (0-0.2) k/uL Manual Slide Review Performed Hypochromasia Marked Anisocytosis Slight Macrocytosis Marked A ESR 42 H (0-20) mm/hr Sodium 138 (137-145) mmol/L Potassium 4.0 (3.5-5.1) mmol/L Chloride 105 (98-107) mmol/L Carbon Dioxide 22 (22-30) mmol/L Anion Gap 11 mmol/L BUN 59 H (7-17) mg/dL Creatinine 3.86 H (0.52-1.04) mg/dL Est GFR (CKD-EPI)AfAm 13 (>60 ml/min/1.73 sqM) Est GFR (CKD-EPI)NonAf 11 (>60 ml/min/1.73 sqM) Glucose 97 (74-99) mg/dL Calcium 8.8 (8.4-10.2) mg/dL Total Bilirubin 1.2 (0.2-1.3) mg/dL AST 54 H (14-36) U/L ALT 19 (4-34) U/L Alkaline Phosphatase 107 (38-126) U/L C-Reactive Protein 5.2 H (<1.0) mg/dL Total Protein 6.6 (6.3-8.2) g/dL Albumin 2.5 L (3.5-5.0) g/dL Urine Color Yellow Urine Appearance Cloudy H (Clear) Urine pH 5.5 (5.0-8.0) Ur Specific Stuart 1.015 (1.001-1.035) Urine Protein 1+ H (Negative) Urine Glucose (UA) Negative (Negative) Urine Ketones Trace H (Negative) Urine Blood Large H (Negative) Urine Nitrite Negative (Negative) Urine Bilirubin Negative (Negative) Urine Urobilinogen <2.0 (<2.0) mg/dL Ur Leukocyte Esterase Large H (Negative) Urine RBC 55 H (0-5) /hpf Urine WBC 22 H (0-5) /hpf Ur Squamous Epith Cells 1 (0-4) /hpf Amorphous Sediment Rare H (None) /hpf Urine Bacteria Rare H (None) /hpf Granular Casts 2 (0) /lpf Urine Mucus Rare H (None) /hpf Ur Yeast w Hyphae Rare (None) /hpf Urine Yeast (Budding) Moderate H (None) /hpf - Radiology Data Radiology results: report reviewed, image reviewed Disposition Clinical Impression: Cellulitis, Failure of outpatient treatment, Renal failure, Acute kidney injury Disposition: ADMITTED IP TO THIS [facility] Condition: Fair Is patient prescribed a controlled substance at d/c from ED?: No Referrals: Nael Garcia MD [Primary Care Provider] - 1-2 days Time of Disposition: 17:24 Decision to Admit Reason: Admit from EC Decision Time: 17:24
--- NOTE | 2023-02-25 12:33 | CT ---
EXAMINATION TYPE: CT lower extremity LT wo con CT DLP: 2041.7 mGycm, Automated exposure control for dose reduction was used. DATE OF EXAM: 02/25/2023 12:22 PM COMPARISON: CT left lower extremity 02/06/2023 CLINICAL INDICATION:Female, 67 years old with history of worsening cellulitis of the left foot lowe r leg; PHH, left lower leg edema TECHNIQUE: Axial images were obtained of the left lower extremity without the use of IV contrast. Ad ditional coronal and sagittal reformatted images and soft tissue and bone window were obtained for re view. 3-D reconstruction was created on a separate workstation. FINDINGS: Limited evaluation due to lack of intravenous contrast. No acute fracture, subluxation, or dislocation. No osseous erosions. Diffuse subcutaneous edema throughout the left lower extremity agai n demonstrated. No focal fluid collection identified. No soft tissue gas to suggest abscess. No joint effusion. Degenerative changes of the pubic symphysis. Moderate ascites in the pelvis. Medel catheter identifie d within the urinary bladder. Several pelvic phleboliths. IMPRESSION: 1. Similar extensive subcutaneous edema throughout the left lower extremity. No overt evidence for a bscess. 2. Moderate volume ascites within the pelvis.
[2023-02-25 13:21] LABS: Amorphous Sediment,Urine Rare /hpf; Appearance,Urine Cloudy (Clear); Bacteria,Urine Rare /hpf; Bilirubin,Urine Negative (Negative); Blood,Urine Large (Negative); Budding Yeast,Urine Moderate /hpf; Color,Urine Yellow; Glucose,Urine (UA) Negative (Negative); Granular Casts,Urine 2 /lpf (0); Hyphae Yeast, Urine Rare /hpf; Ketones,Urine Trace (Negative); Leukocyte Esterase,Urine Large (Negative); Mucus,Urine Rare /hpf; Nitrite,Urine Negative (Negative); PH, Urine 5.5 (5.0-8.0); Protein,Urine 1+ (Negative); RBC,Urine 55 /hpf (0-5); Specific Gravity,Urine 1.015 (1.001-1.035); Squamous Epithelial Cell,Urine 1 /hpf (0-4); Urobilinogen,Urine <2.0 mg/dL (<2.0); WBC,Urine 22 /hpf (0-5)
[2023-02-25 13:30] LABS: Anisocytosis Slight; Basophils % (A) 0 %; Eosinophils # (A) 0.7 k/uL (0-0.7); Eosinophils % (A) 6 %; HCT 36.4 % (34.0-46.0); HGB 11.4 gm/dL (11.4-16.0); Hypochromasia Marked; Lymphocytes # (A) 0.8 k/uL (1.0-4.8); Lymphocytes % (A) 8 %; MCHC 31.4 g/dL (31.0-37.0); MCV 114.8 fL (80.0-100.0); Macrocytosis Marked; Mean Platelet Volume 9.5; Monocytes # (A) 0.5 k/uL (0-1.0); Monocytes % (A) 4 %; Neutrophils # (A) 8.2 k/uL (1.3-7.7); Neutrophils % (A) 79 %; Platelet Count 245 k/uL (150-450); RBC 3.17 m/uL (3.80-5.40); RDW 16.3 % (11.5-15.5); WBC 10.4 k/uL (3.8-10.6)
[2023-02-25 13:33] LABS: ALT 19 U/L (4-34); AST 54 U/L (14-36); African American GFR (CKD) 13 (>60 ml/min/1.73 sqM); Albumin 2.5 g/dL (3.5-5.0); Alkaline Phosphatase 107 U/L (38-126); Anion Gap 11 mmol/L; Blood Urea Nitrogen 59 mg/dL (7-17); C Reactive Protein 5.2 mg/dL (<1.0); Calcium 8.8 mg/dL (8.4-10.2); Carbon Dioxide 22 mmol/L (22-30); Chloride 105 mmol/L (98-107); Glucose 97 mg/dL (74-99); Non-African American GFR(CKD) 11 (>60 ml/min/1.73 sqM); Sodium 138 mmol/L (137-145); Total Bilirubin 1.2 mg/dL (0.2-1.3); Total Protein 6.6 g/dL (6.3-8.2)
[2023-02-25 14:38] LABS: Erythrocyte Sedimentation Rate 42 mm/hr (0-20)
[2023-02-25] MEDS ORDERED: SODIUM CHLORIDE 0.9% 1,000 ML IV ONE (15:58)
[2023-02-25] MEDS ORDERED: NALOXONE 0.4 MG/ML 1 ML VIAL IV PRN (17:03)
[2023-02-25] MEDS ORDERED: SODIUM CHLORIDE 0.9% 1,000 ML IV STA (17:05)
[2023-02-26 05:54] LABS: Anisocytosis Slight; Basophils % (A) 0 %; Eosinophils # (A) 0.8 k/uL (0-0.7); Eosinophils % (A) 7 %; Hypochromasia Moderate; Lymphocytes # (A) 0.9 k/uL (1.0-4.8); Lymphocytes % (A) 7 %; MCH 35.8 pg (25.0-35.0); MCHC 31.9 g/dL (31.0-37.0); MCV 112.2 fL (80.0-100.0); Macrocytosis Marked; Mean Platelet Volume 10.9; Monocytes # (A) 0.7 k/uL (0-1.0); Monocytes % (A) 5 %; Neutrophils # (A) 10.3 k/uL (1.3-7.7); Neutrophils % (A) 80 %; Platelet Count 228 k/uL (150-450); RDW 16.5 % (11.5-15.5); WBC 12.9 k/uL (3.8-10.6)
[2023-02-26] MEDS ORDERED: clonazePAM 0.5 MG TAB PO PRN (06:08)
[2023-02-26] MEDS ORDERED: ONDANSETRON 4 MG/2 ML VIAL IVP PRN (06:10)
[2023-02-26] MEDS ORDERED: CEFEPIME 1 GM VIAL IVPB SCH (06:15)
[2023-02-26] MEDS ORDERED: NON FORMULARY DRUG (Daptomycin [Daptomycin] 350 MG Each) IV SCH (06:15)
[2023-02-26 06:29] LABS: ALT 20 U/L (4-34); African American GFR (CKD) 14 (>60 ml/min/1.73 sqM); Albumin 2.3 g/dL (3.5-5.0); Albumin/Globulin Ratio 0.6; Anion Gap 10 mmol/L; Blood Urea Nitrogen 62 mg/dL (7-17); Calcium 8.2 mg/dL (8.4-10.2); Carbon Dioxide 20 mmol/L (22-30); Chloride 106 mmol/L (98-107); Globulin 3.8 g/dL; Glucose 87 mg/dL (74-99); Non-African American GFR(CKD) 12 (>60 ml/min/1.73 sqM); Sodium 136 mmol/L (137-145); Total Bilirubin 1.2 mg/dL (0.2-1.3); Total Protein 6.1 g/dL (6.3-8.2)
[2023-02-26 06:36] LABS: AST 63 U/L (14-36); Alkaline Phosphatase 85 U/L (38-126); Potassium 4.9 mmol/L (3.5-5.1)
[2023-02-26] MEDS ORDERED: FAMOTIDINE 20 MG TAB PO SCH (09:00)
[2023-02-26] MEDS: FOLIC ACID 1 MG TAB PO SCH (09:02)
[2023-02-26] MEDS: THIAMINE 100 MG TAB PO SCH (09:02)
[2023-02-26] MEDS: CEFEPIME 1 GM in SODIUM CHLORIDE 0.9% 50 ML IVPB SCH ×2 (09:02→21:42)
[2023-02-26] MEDS: MIDODRINE 5 MG TAB PO SCH ×3 (09:02→18:46)
--- NOTE | 2023-02-26 09:51 | P.NPCON ---
History of Present Illness - Reason for Consult acute renal failure - History of Present Illness Reason for consultation: Acute kidney injury History of present illness: Patient is a 67-year-old female seen in renal consultation for acute kidney injury. Patient's creatinine dated 02/09/2023 was as low as 0.97. This admission and was elevated at 3.86 and is 3.58 today. Patient was sent from an extended care facility due to left lower extremity cellulitis. She is currently receiving IV antibiotics. Patient is somewhat confused and slow to respond. She states that she is currently at [facility]. It is noted in the records the patient developed a rash over the weekend and also needs a PICC line placed. Patient has a history of alcohol-induced liver cirrhosis. Last paracentesis was 02/18/2023 with 2 L drained. Patient received 1 L fluid of normal saline on admission and was subsequently started on normal saline at 75 mL an hour. Currently she is not receiving fluids. She's having breakfast. Oral intake is just fair. She has a Medel catheter which is not from this admission. No histo ry of diabetes. I don't see any nonsteroidals in her home medication list. Lasix and spironolactone in her home medication list noted. Blood pressure stable. On midodrine. No fever. Vital signs are stable. General: No acute distress. HEENT: Head exam is unremarkable. LUNGS: No audible rhonchi or wheezes. HEART: Rate and Rhythm are regular. ABDOMEN: Distention noted. Hernia noted. EXTREMITITES: Left lower extremity erythema noted. 3+ edema. Past Medical History Past Medical History: No Reported History, Liver Disease, Renal Disease Additional Past Medical History / Comment(s): Hernia, anemia, metabolic encephalopathy, cirrohisis History of Any Multi-Drug Resistant Organisms: None Reported Past Surgical History: Appendectomy, Hysterectomy Past Anesthesia/Blood Transfusion Reactions: No Reported Reaction Past Psychological History: No Psychological Hx Reported Smoking Status: Current every day smoker Past Alcohol Use History: Daily, Heavy Past Drug Use History: None Reported Medications and Allergies Home Medications Medication Instructions Recorded Confirmed Type Spironolactone [Aldactone] 25 mg PO DAILY #30 tab 01/17/23 02/25/23 Rx Cefepime [Maxipime] 1 gm IVPB Q12H 10 Days #20 ml 02/18/23 02/25/23 Rx DAPTOmycin 250 mg IV Q2D 10 Days #5 each 02/18/23 02/25/23 Rx Acetaminophen Tab [Tylenol] 500 mg PO Q6HR PRN tab 02/19/23 02/25/23 Rx Folic Acid 1 mg PO DAILY tab 02/19/23 02/25/23 Rx Furosemide [Lasix] 40 mg PO DAILY tab 02/19/23 02/25/23 Rx Midodrine [ProAmatine] 10 mg PO AC-TID #90 tab 02/19/23 02/25/23 Rx Thiamine [Vitamin B-1] 100 mg PO DAILY tab 02/19/23 02/25/23 Rx clonazePAM [KlonoPIN] 0.5 mg PO DAILY PRN 02/25/23 02/25/23 History Allergies Allergy/AdvReac Type Severity Reaction Status Date / Time No Known Allergies Allergy Verified 02/25/23 16:01 Physical Exam Vitals: Vital Signs Temp Pulse Pulse Resp BP BP Pulse Ox 02/26/23 07:04 97.9 F 94 15 101/65 97 02/26/23 01:01 97.7 F 99 18 98/55 98 02/25/23 21:32 97.5 F L 98 18 156/83 97 02/25/23 20:30 98 16 102/74 97 02/25/23 18:59 98 22 112/83 97 02/25/23 16:52 86 20 106/70 97 02/25/23 14:39 80 20 125/76 96 02/25/23 13:08 80 20 97/78 100 02/25/23 11:15 97.4 F L 80 20 95/71 100 Intake and Output 02/25/23 02/26/23 02/26/23 22:59 06:59 14:59 Other: # Voids 2 # Bowel Movements 1 Results - Lab Results Most recent lab results Calcium 8.2 mg/dL (8.4-10.2) L 02/26/23 05:01 02/26/23 05:01 02/26/23 05:01 Assessment and Plan Plan: Assessment: 1. Acute kidney injury secondary to ATN secondary to hepatorenal syndrome. No hydronephrosis noted on CAT scan done December 2022. Creatinine 3.86 on admission and is 3.58 today. Creatinine near and January 2023. 2. Alcohol-induced liver cirrhosis. 3. Volume overload. 4. Left lower extremity cellulitis on antibiotics. 5. Anemia. Rule out iron deficiency. Plan: Maintain midodrine. Add IV Lasix 60 mg twice daily. Add spironolactone 25 mg twice daily. Check iron studies. Avoid nephrotoxins. Check abdominal ultrasound. If shows ascites, will need paracentesis. Continue to monitor renal function and urine output. Thank you for the consultation. I will continue to follow the patient with you during her hospital stay.
--- NOTE | 2023-02-26 13:01 | US ---
EXAMINATION TYPE: US abdomen limited DATE OF EXAM: 02/26/2023 COMPARISON: NONE CLINICAL INDICATION: Female, 67 years old with history of ascites; distention All four quadrants scanned and ascites is noted throughout abdomen. IMPRESSION: Moderate ascites
[2023-02-26] MEDS: FUROSEMIDE 10 MG/ML 10 ML VIAL IV SCH ×2 (13:26→21:28)
[2023-02-26] MEDS: SPIRONOLACTONE 25 MG TAB PO SCH ×2 (13:27→21:28)
--- NOTE | 2023-02-26 13:36 | P.HPIM ---
History of Present Illness H&P Date: 02/26/23 History of present illness; Patient is a 67-year-old lady with past medical history significant for left lower extremity cellulitis, hepatorenal syndrome, liver cirrhosis, who was [facility] for [facility] of left lower extremity cellulitis. Patient was apparently on IV antibiotics cefepime and daptomycin at the facility for left lower external cellulitis, apparently cellulitis was worsening so the ID recommended transferring patient to the hospital. Patient also developed generalized rash over the weekend which is improved. There was no complain of fever or chills. No cold or shortness of breath or chest pain. patient has been having good appetite. Initial lab work done in the ER showed WBC 10.4, crit of 11.4, platelet count 245, sodium 1:30, potassium 4, BUN 59, creatinine 3.86 CRP 5.2 UA done showed large leukocyte Estrace, urine nitrate negative, WBC 22 Patient was admitted to medicine service REVIEW OF SYSTEMS: CONSTITUTIONAL: No fever, no malaise, no fatigue. HEENT: No recent visual problems or hearing problems. Denied any sore throat. CARDIOVASCULAR: No chest pain, orthopnea, PND, no palpitations, no syncope. PULMONARY: No shortness of breath, no cough, no hemoptysis. GASTROINTESTINAL: No diarrhea, no nausea, no vomiting, no abdominal pain. NEUROLOGICAL: No headaches, no weakness, no numbness. HEMATOLOGICAL: Denies any bleeding or petechiae. GENITOURINARY: Denies any burning micturition, frequency, or urgency. MUSCULOSKELETAL/RHEUMATOLOGICAL: Left lower extremity swelling ENDOCRINE: Denies any polyuria or polydipsia. The rest of the 14-point review of systems is negative. PHYSICAL EXAMINATION: GENERAL: The patient is alert and oriented x3, not in any acute distress. Well developed, well nourished. HEENT: Pupils are round and equally reacting to light. EOMI. No scleral icterus. No conjunctival pallor. Normocephalic, atraumatic. No pharyngeal erythema. No thyromegaly. CARDIOVASCULAR: S1 and S2 present. No murmurs, rubs, or gallops. PULMONARY: Chest is clear to auscultation, no wheezing or crackles. ABDOMEN: Distended, ventral wall hernia seen, no tenderness MUSCULOSKELETAL: No joint swelling or deformity. EXTREMITIES: 2+ pitting edema of lower extremities bilaterally, erythema of left lower extremity noticeable NEUROLOGICAL: Gross neurological examination did not reveal any focal deficits. SKIN: No rashes. Assessment and plan Left lower extremity cellulitis Acute kidney injury secondary to ATN secondary to hepatorenal syndrome. Alcohol-induced liver cirrhosis Monitor vital signs Monitor CBC Monitor CMP Follow-up on blood cultures Ordered ultrasound abdominal Continue IV cefepime and daptomycin Continue IV Lasix 60 mg twice a day Continue Aldactone Consult nephrology Consult ID Labs and medication were reviewed.. Continue same treatment. Continue with sy mptomatic treatment. Resume home medication. Monitor labs and vitals. DVT and GI prophylaxis. Further recommendations as per clinical course of the patient Dictation was produced using [employer] dictation software. please excuse any grammatical, word or spelling errors. Past Medical History Past Medical History: No Reported History, Liver Disease, Renal Disease Additional Past Medical History / Comment(s): Hernia, anemia, metabolic encephalopathy, cirrohisis History of Any Multi-Drug Resistant Organisms: None Reported Past Surgical History: Appendectomy, Hysterectomy Past Anesthesia/Blood Transfusion Reactions: No Reported Reaction Past Psychological History: No Psychological Hx Reported Smoking Status: Current every day smoker Past Alcohol Use History: Daily, Heavy Past Drug Use History: None Reported Medications and Allergies Home Medications Medication Instructions Recorded Confirmed Type Spironolactone [Aldactone] 25 mg PO DAILY #30 tab 01/17/23 02/25/23 Rx Cefepime [Maxipime] 1 gm IVPB Q12H 10 Days #20 ml 02/18/23 02/25/23 Rx DAPTOmycin 250 mg IV Q2D 10 Days #5 each 02/18/23 02/25/23 Rx Acetaminophen Tab [Tylenol] 500 mg PO Q6HR PRN tab 02/19/23 02/25/23 Rx Folic Acid 1 mg PO DAILY tab 02/19/23 02/25/23 Rx Furosemide [Lasix] 40 mg PO DAILY tab 02/19/23 02/25/23 Rx Midodrine [ProAmatine] 10 mg PO AC-TID #90 tab 02/19/23 02/25/23 Rx Thiamine [Vitamin B-1] 100 mg PO DAILY tab 02/19/23 02/25/23 Rx clonazePAM [KlonoPIN] 0.5 mg PO DAILY PRN 02/25/23 02/25/23 History Allergies Allergy/AdvReac Type Severity Reaction Status Date / Time No Known Allergies Allergy Verified 02/25/23 16:01 Physical Exam Vitals: Vital Signs Temp Pulse Pulse Resp BP BP Pulse Ox 02/26/23 07:04 97.9 F 94 15 101/65 97 02/26/23 01:01 97.7 F 99 18 98/55 98 02/25/23 21:32 97.5 F L 98 18 156/83 97 02/25/23 20:30 98 16 102/74 97 02/25/23 18:59 98 22 112/83 97 02/25/23 16:52 86 20 106/70 97 02/25/23 14:39 80 20 125/76 96 02/25/23 13:08 80 20 97/78 100 02/25/23 11:15 97.4 F L 80 20 95/71 100 Intake and Output 02/25/23 02/26/23 02/26/23 22:59 06:59 14:59 Other: # Voids 2 # Bowel Movements 1 Results CBC & Chem 7: 02/26/23 05:01 02/26/23 05:01 Labs: Abnormal Lab Results - Last 24 Hours (Table) 02/25/23 02/25/23 02/25/23 Range/Units 12:56 12:56 12:56 WBC (3.8-10.6) k/uL RBC 3.17 L (3.80-5.40) m/uL Hgb (11.4-16.0) gm/dL Hct (34.0-46.0) % MCV 114.8 H (80.0-100.0) fL MCH 36.0 H (25.0-35.0) pg RDW 16.3 H (11.5-15.5) % Neutrophils # 8.2 H (1.3-7.7) k/uL Lymphocytes # 0.8 L (1.0-4.8) k/uL Eosinophils # (0-0.7) k/uL Macrocytosis Marked A ESR 42 H (0-20) mm/hr Sodium (137-145) mmol/L Carbon Dioxide (22-30) mmol/L BUN 59 H (7-17) mg/dL Creatinine 3.86 H (0.52-1.04) mg/dL Calcium (8.4-10.2) mg/dL AST 54 H (14-36) U/L C-Reactive Protein 5.2 H (<1.0) mg/dL Total Protein (6.3-8.2) g/dL Albumin 2.5 L (3.5-5.0) g/dL Urine Appearance Cloudy H (Clear) Urine Protein 1+ H (Negative) Urine Ketones Trace H (Negative) Urine Blood Large H (Negative) Ur Leukocyte Esterase Large H (Negative) Urine RBC 55 H (0-5) /hpf Urine WBC 22 H (0-5) /hpf Amorphous Sediment Rare H (None) /hpf Urine Bacteria Rare H (None) /hpf Urine Mucus Rare H (None) /hpf Urine Yeast (Budding) Moderate H (None) /hpf 02/26/23 02/26/23 Range/Units 05:01 05:01 WBC 12.9 H (3.8-10.6) k/uL RBC 2.50 L (3.80-5.40) m/uL Hgb 9.0 L D (11.4-16.0) gm/dL Hct 28.0 L (34.0-46.0) % MCV 112.2 H (80.0-100.0) fL MCH 35.8 H (25.0-35.0) pg RDW 16.5 H (11.5-15.5) % Neutrophils # 10.3 H (1.3-7.7) k/uL Lymphocytes # 0.9 L (1.0-4.8) k/uL Eosinophils # 0.8 H (0-0.7) k/uL Macrocytosis Marked A ESR (0-20) mm/hr Sodium 136 L (137-145) mmol/L Carbon Dioxide 20 L (22-30) mmol/L BUN 62 H (7-17) mg/dL Creatinine 3.58 H (0.52-1.04) mg/dL Calcium 8.2 L (8.4-10.2) mg/dL AST 63 H (14-36) U/L C-Reactive Protein (<1.0) mg/dL Total Protein 6.1 L (6.3-8.2) g/dL Albumin 2.3 L (3.5-5.0) g/dL Urine Appearance (Clear) Urine Protein (Negative) Urine Ketones (Negative) Urine Blood (Negative) Ur Leukocyte Esterase (Negative) Urine RBC (0-5) /hpf Urine WBC (0-5) /hpf Amorphous Sediment (None) /hpf Urine Bacteria (None) /hpf Urine Mucus (None) /hpf Urine Yeast (Budding) (None) /hpf
[2023-02-26 16:51] LABS: % Iron Saturation 39.35 (12.00-45.00)
[2023-02-26 17:23] LABS: INR 1.3 (<1.2); Prothrombin Time 13.4 sec (9.0-12.0)
[2023-02-26] MEDS ORDERED: ALBUMIN HUMAN 25% 50 ML in EMPTY BAG 1 BAG IVPB PRN (21:00)
[2023-02-27] MEDS: MIDODRINE 5 MG TAB PO SCH ×3 (06:30→18:11)
--- NOTE | 2023-02-27 08:37 | P.CONS ---
History of Present Illness - Reason for Consult Consult date: 02/26/23 Cellulitis Requesting physician: Robyn Rose - Chief Complaint Weakness and left leg redness x few days - History of Present Illness Patient is a 67-year-old female with a past medical history significant for cirrhosis of the liver, smoking, renal insufficiency who was recently admitted at this facility with the diffuse swelling to bilateral lower extremity patient also have a wound on the plantar aspect of the left foot which was debrided and culture subsequently came back positive with Pseudomonas aeruginosa MSSA and Enterococcus faecalis patient also have cellulitis of the left leg initially treated with Zosyn however did not show that much of impr ovement antibiotic was switched over to daptomycin and cefepime and the patient was discharged to the local long-term to continue with antibiotic for 10 days patient has been sent back to the ER yesterday morning apparently he was evaluated by an infectious disease physician there and concerning for worsening cellulitis patient apparently was supposed to have a PICC line however they were not able to get a lens generator clearance to have the PICC line placement and there was a question of the patient developing a diffuse rash over her body with the symptoms the patient has been sent to [facility] for further management on presentation to the hospital the patient was afebrile and no fever has been recorded subsequently patient did have a white count of 10 point 4 repeat is up to 12.9 creatinine 3.58 AST is mildly elevated CRP is 5.2 urine was positive patient did have blood cultures obtained currently pending lower extremity CT simmitinib extensive subcutaneous edema throughout lower extremity no evidence of abscess patient was started on cefepime infectious disease was consulted for further management of antibiotic therapy most information has been obtained from review the chart and the patient has not been good historian she has been complaining of mostly swelling especially the left lower extremity with associated redness also complaining of pain moderate intensity unable to modified any further and denies any foul-smelling drainage from the left foot wound Review of Systems Positive point and negatives has been mentioned in the HPI, complete review of systems was performed and all other systems are negative Past Medical History Past Medical History: No Reported History, Liver Disease, Renal Disease Additional Past Medical History / Comment(s): Hernia, anemia, metabolic encephalopathy, cirrohisis History of Any Multi-Drug Resistant Organisms: None Reported Past Surgical History: Appendectomy, Hysterectomy Past Anesthesia/Blood Transfusion Reactions: No Reported Reaction Past Psychological History: No Psychological Hx Reported Smoking Status: Current every day smoker Past Alcohol Use History: Daily, Heavy Past Drug Use History: None Reported Medications and Allergies Home Medications Medication Instructions Recorded Confirmed Type Spironolactone [Aldactone] 25 mg PO DAILY #30 tab 01/17/23 02/25/23 Rx Cefepime [Maxipime] 1 gm IVPB Q12H 10 Days #20 ml 02/18/23 02/25/23 Rx DAPTOmycin 250 mg IV Q2D 10 Days #5 each 02/18/23 02/25/23 Rx Acetaminophen Tab [Tylenol] 500 mg PO Q6HR PRN tab 02/19/23 02/25/23 Rx Folic Acid 1 mg PO DAILY tab 02/19/23 02/25/23 Rx Furosemide [Lasix] 40 mg PO DAILY tab 02/19/23 02/25/23 Rx Midodrine [ProAmatine] 10 mg PO AC-TID #90 tab 02/19/23 02/25/23 Rx Thiamine [Vitamin B-1] 100 mg PO DAILY tab 02/19/23 02/25/23 Rx clonazePAM [KlonoPIN] 0.5 mg PO DAILY PRN 02/25/23 02/25/23 History Allergies Allergy/AdvReac Type Severity Reaction Status Date / Time No Known Allergies Allergy Verified 02/25/23 16:01 Physical Exam Vitals: Vital Signs Temp Pulse Pulse Resp BP BP Pulse Ox 02/26/23 07:04 97.9 F 94 15 101/65 97 02/26/23 01:01 97.7 F 99 18 98/55 98 02/25/23 21:32 97.5 F L 98 18 156/83 97 02/25/23 20:30 98 16 102/74 97 02/25/23 18:59 98 22 112/83 97 02/25/23 16:52 86 20 106/70 97 02/25/23 14:39 80 20 125/76 96 02/25/23 13:08 80 20 97/78 100 Intake and Output 02/25/23 02/26/23 02/26/23 22:59 06:59 14:59 Other: # Voids 2 # Bowel Movements 1 GENERAL DESCRIPTION: Elderly female lying in bed, no distress. No tachypnea or accessory muscle of respiration use. HEENT: Shows Pallor , no scleral icterus. Oral mucous membrane is dry. No pharyngeal erythema or thrush NECK: Trachea central, no thyromegaly. LUNGS: Unlabored breathing. Clear to auscultation anteriorly. HEART: S1, S2, regular rate and rhythm. No loud murmur ABDOMEN: Soft, no tenderness , EXTREMITIES: Left leg did have some swelling and redness of the wound on the dorsum aspect of the left foot with minimal slough tissue no foul-smelling drainage SKIN: No rash, no masses palpable. NEUROLOGICAL: The patient is awake, alert, oriented x3, mood and affect normal. Results CBC & Chem 7: 03/01/23 06:18 03/01/23 06:18 Labs: Abnormal Lab Results - Last 24 Hours (Table) 02/25/23 02/25/23 02/25/23 Range/Units 12:56 12:56 12:56 WBC (3.8-10.6) k/uL RBC 3.17 L (3.80-5.40) m/uL Hgb (11.4-16.0) gm/dL Hct (34.0-46.0) % MCV 114.8 H (80.0-100.0) fL MCH 36.0 H (25.0-35.0) pg RDW 16.3 H (11.5-15.5) % Neutrophils # 8.2 H (1.3-7.7) k/uL Lymphocytes # 0.8 L (1.0-4.8) k/uL Eosinophils # (0-0.7) k/uL Macrocytosis Marked A ESR 42 H (0-20) mm/hr Sodium (137-145) mmol/L Carbon Dioxide (22-30) mmol/L BUN 59 H (7-17) mg/dL Creatinine 3.86 H (0.52-1.04) mg/dL Calcium (8.4-10.2) mg/dL AST 54 H (14-36) U/L C-Reactive Protein 5.2 H (<1.0) mg/dL Total Protein (6.3-8.2) g/dL Albumin 2.5 L (3.5-5.0) g/dL Urine Appearance Cloudy H (Clear) Urine Protein 1+ H (Negative) Urine Ketones Trace H (Negative) Urine Blood Large H (Negative) Ur Leukocyte Esterase Large H (Negative) Urine RBC 55 H (0-5) /hpf Urine WBC 22 H (0-5) /hpf Amorphous Sediment Rare H (None) /hpf Urine Bacteria Rare H (None) /hpf Urine Mucus Rare H (None) /hpf Urine Yeast (Budding) Moderate H (None) /hpf 02/26/23 02/26/23 Range/Units 05:01 05:01 WBC 12.9 H (3.8-10.6) k/uL RBC 2.50 L (3.80-5.40) m/uL Hgb 9.0 L D (11.4-16.0) gm/dL Hct 28.0 L (34.0-46.0) % MCV 112.2 H (80.0-100.0) fL MCH 35.8 H (25.0-35.0) pg RDW 16.5 H (11.5-15.5) % Neutrophils # 10.3 H (1.3-7.7) k/uL Lymphocytes # 0.9 L (1.0-4.8) k/uL Eosinophils # 0.8 H (0-0.7) k/uL Macrocytosis Marked A ESR (0-20) mm/hr Sodium 136 L (137-145) mmol/L Carbon Dioxide 20 L (22-30) mmol/L BUN 62 H (7-17) mg/dL Creatinine 3.58 H (0.52-1.04) mg/dL Calcium 8.2 L (8.4-10.2) mg/dL AST 63 H (14-36) U/L C-Reactive Protein (<1.0) mg/dL Total Protein 6.1 L (6.3-8.2) g/dL Albumin 2.3 L (3.5-5.0) g/dL Urine Appearance (Clear) Urine Protein (Negative) Urine Ketones (Negative) Urine Blood (Negative) Ur Leukocyte Esterase (Negative) Urine RBC (0-5) /hpf Urine WBC (0-5) /hpf Amorphous Sediment (None) /hpf Urine Bacteria (None) /hpf Urine Mucus (None) /hpf Urine Yeast (Budding) (None) /hpf Assessment and Plan (1) Failure of outpatient treatment Current Visit: Yes Status: Acute Code(s): Z78.9 - OTHER SPECIFIED HEALTH STATUS SNOMED Code(s): 683419297 (2) Left leg cellulitis Current Visit: No Status: Acute Code(s): L03.116 - CELLULITIS OF LEFT LOWER LIMB SNOMED Code(s): 27833191329025753 Plan: 1patient was in the hospital with worsening cellulitis to left lower extremity with recent culture positive for MSSA Enterococcus and Pseudomonas apparently the patient was unable to get antibiotic as prescribed on her last admission could be the likely reason for worsening of her left lower extremity cellulitis 2-patient also noticed to have worsening of the kidney function could be attributing to extra edema and swelling to the lower extremity however both daptomycin as well as cefepime are not nephrotoxic 3-patient also have a wound on the dorsum aspect of the left foot with slough tissue but no significant cellulitis and CT did not show any evidence of abscess 4-local wound care to the left foot wound with the Medihoney followed by moist dressing we also recommend Francisco wrap to the leg to keep the swelling down 5-we will continue with cefepime for now and see clinical response We will follow on clinical condition and cultures to further adjust medication if needed Thank you for this consultation we will follow the patient along with you Dictation was produced using [employer] dictation software. please excuse any grammatical, word or spelling errors. Time with Patient: Greater than 30
[2023-02-27] MEDS: CEFEPIME 1 GM in SODIUM CHLORIDE 0.9% 50 ML IVPB SCH (09:49)
[2023-02-27] MEDS: FAMOTIDINE 20 MG TAB PO SCH (09:50)
[2023-02-27] MEDS: THIAMINE 100 MG TAB PO SCH (09:50)
[2023-02-27] MEDS: FOLIC ACID 1 MG TAB PO SCH (09:50)
[2023-02-27] MEDS: SPIRONOLACTONE 25 MG TAB PO SCH ×2 (09:50→21:29)
[2023-02-27] MEDS: FUROSEMIDE 10 MG/ML 10 ML VIAL IV SCH ×2 (09:50→21:29)
[2023-02-27] MEDS: ALBUMIN HUMAN 25% 50 ML in EMPTY BAG 1 BAG IVPB PRN ×2 (10:52→11:16)
--- NOTE | 2023-02-27 11:46 | P.PN ---
Subjective Patient is seen in follow for acute kidney injury. Morning labs pending. Underwent paracentesis for 20 half liters drained. Resting in bed. Vital signs are stable. General: No acute distress. HEENT: Head exam is unremarkable. LUNGS: No audible rhonchi or wheezes. HEART: Rate and Rhythm are regular. ABDOMEN: Obese, distention noted. EXTREMITITES: 2+ edema. Objective - Vital Signs Vital signs: Vital Signs Temp 98.1 F 02/27/23 07:12 Pulse 80 02/27/23 11:11 Resp 16 02/27/23 11:11 BP 104/66 02/27/23 11:11 Pulse Ox 99 02/27/23 11:11 FiO2 Intake & Output 02/26/23 02/27/23 02/27/23 18:59 06:59 18:59 Output Total 450 Balance -450 Weight 90.718 kg Output: Urine 450 Other: Voiding Method Indwelling Catheter Indwelling Catheter # Bowel Movements 1 - Labs CBC & Chem 7: 02/26/23 05:01 02/26/23 05:01 Labs: Abnormal Lab Results - Last 24 Hours (Table) 02/26/23 02/26/23 Range/Units 05:01 16:26 PT 13.4 H (9.0-12.0) sec INR 1.3 H (<1.2) TIBC 155 L (228-460) UG/DL Transferrin 111.0 L (204.0-354.0) mg/dL Ferritin 386.0 H (10.0-291.0) ng/mL Microbiology - Last 24 Hours (Table) 02/25/23 12:56 Blood Culture - Preliminary Blood Assessment and Plan Plan: Assessment: 1. Acute kidney injury secondary to ATN secondary to hepatorenal syndrome. No hydronephrosis noted on CAT scan done December 2022. Creatinine 3.86 on admission - 3.58 yesterday. Creatinine near and January 2023. 2. Alcohol-induced liver cirrhosis. 3. Volume overload. Status post paracentesis. 2.5 L drained today. 4. Left lower extremity cellulitis on antibiotics. 5. Anemia. Iron replete. Plan: Maintain midodrine. Maintain IV Lasix. Increase dose of spironolactone to 50 mg twice daily. Avoid nephrotoxins. Continue to monitor renal function and urine output. Maintain Medel catheter.
--- NOTE | 2023-02-27 12:49 | US ---
Ultrasound-guided paracentesis. DATE OF EXAM: 02/27/2023 CLINICAL HISTORY: Ascites The procedure was discussed with the patient. The risks, complications, benefits, and alternatives we re discussed and any questions were answered. Informed consent was obtained. The patient was placed s upine on the ultrasound table and prepped and draped in the usual sterile fashion. All elements of maximal barrier technique were utilized. Under ultrasound guidance, access into the left lower quadrant was obtained, via the paracentesis catheter system and direct ultrasound guidance . Approximately 2.5 liters of straw-colored fluid was removed. The patient was stable throughout the pr ocedure and remained stable upon discharge from Department of Radiology. IMPRESSION: Successful paracentesis under ultrasound guidance.
[2023-02-27 14:21] LABS: BUN/Creat Ratio 14.67 Ratio (12.00-20.00); Blood Urea Nitrogen 61.6 mg/dL (9.0-27.0); Calcium 8.4 mg/dL (8.7-10.3); Chloride 104 mmol/L (96-109); Glucose 135 mg/dL (70-110); Magnesium 1.9 mg/dL (1.5-2.4); Potassium 3.8 mmol/L (3.5-5.5); Sodium 138 mmol/L (135-145)
[2023-02-28] MEDS: MIDODRINE 5 MG TAB PO SCH ×3 (06:29→16:58)
[2023-02-28] MEDS: CEFEPIME 1 GM in SODIUM CHLORIDE 0.9% 50 ML IVPB SCH (08:45)
[2023-02-28] MEDS: FOLIC ACID 1 MG TAB PO SCH (08:45)
[2023-02-28] MEDS: FUROSEMIDE 10 MG/ML 10 ML VIAL IV SCH ×2 (08:45→21:11)
[2023-02-28] MEDS: THIAMINE 100 MG TAB PO SCH (08:45)
[2023-02-28] MEDS: FAMOTIDINE 20 MG TAB PO SCH (08:45)
[2023-02-28] MEDS: SPIRONOLACTONE 25 MG TAB PO SCH ×2 (08:45→21:11)
[2023-02-28 11:23] LABS: Basophils % (A) 0.8 %; Eosinophils # (A) 0.93 X 10*3/uL (0.04-0.35); Eosinophils % (A) 7.5 %; HCT 28.5 % (37.2-46.3); HGB 8.8 d/dL (12.0-15.0); Lymphocytes # (A) 0.97 X 10*3/uL (0.90-5.00); Lymphocytes % (A) 7.8 %; MCH 34.1 pg (27.0-32.0); MCHC 30.9 d/dL (32.0-37.0); MCV 110.5 FL (80.0-97.0); Mean Platelet Volume 11.7 FL (9.5-12.2); Monocytes # (A) 1.04 X 10*3/uL (0.20-1.00); Monocytes % (A) 8.4 %; NRBC Per 100 WBC 0 X 10*3/uL (0.00-0.01); Neutrophils # (A) 9.28 X 10*3/uL (1.80-7.70); Neutrophils % (A) 74.8 %; Platelet Count 250 X 10*3/uL (140-440); RBC 2.58 X 10*6/uL (4.10-5.20); RDW 16.3 % (11.5-14.5); WBC 12.41 X 10*3/uL (4.50-10.00)
[2023-02-28 11:55] LABS: Blood Urea Nitrogen 63.4 mg/dL (9.0-27.0); Calcium 8.6 mg/dL (8.7-10.3); Carbon Dioxide 19.5 mmol/L (21.6-31.8); Chloride 105 mmol/L (96-109); Glucose 95 mg/dL (70-110); Magnesium 1.9 mg/dL (1.5-2.4); Potassium 3.8 mmol/L (3.5-5.5); Sodium 138 mmol/L (135-145)
--- NOTE | 2023-02-28 12:11 | P.PN ---
Subjective Patient is seen in follow for acute kidney injury. Creatinine stable at 4.2. Underwent paracentesis on 02/27/2023 for 2.5 L drained. Resting in bed. Poor historian. Vital signs are stable. General: No acute distress. HEENT: Head exam is unremarkable. LUNGS: No audible rhonchi or wheezes. HEART: Rate and Rhythm are regular. ABDOMEN: Obese, distention noted. EXTREMITITES: 2+ edema. Objective - Vital Signs Vital signs: Vital Signs Temp 97.7 F 02/28/23 07:32 Pulse 92 02/28/23 07:32 Resp 19 02/28/23 07:32 BP 111/68 02/28/23 07:32 Pulse Ox 97 02/28/23 09:17 FiO2 Intake & Output 02/27/23 02/28/23 02/28/23 18:59 06:59 18:59 Output Total 125 300 Balance -125 -300 Output: Urine 125 300 Other: Voiding Method Indwelling Catheter Indwelling Catheter Indwelling Catheter # Bowel Movements 1 - Labs CBC & Chem 7: 02/28/23 06:09 02/28/23 06:09 Labs: Abnormal Lab Results - Last 24 Hours (Table) 02/27/23 02/28/23 02/28/23 Range/Units 05:55 06:09 06:09 WBC 12.41 H (4.50-10.00) X 10*3/uL RBC 2.58 L (4.10-5.20) X 10*6/uL Hgb 8.8 L (12.0-15.0) d/dL Hct 28.5 L (37.2-46.3) % MCV 110.5 H (80.0-97.0) FL MCH 34.1 H (27.0-32.0) pg MCHC 30.9 L (32.0-37.0) d/dL RDW 16.3 H (11.5-14.5) % Neutrophils # 9.28 H (1.80-7.70) X 10*3/uL Monocytes # 1.04 H (0.20-1.00) X 10*3/uL Eosinophils # 0.93 H (0.04-0.35) X 10*3/uL Carbon Dioxide 19.0 L 19.5 L (21.6-31.8) mmol/L Anion Gap 15.00 H 13.50 H (4.00-12.00) mmol/L BUN 61.6 H 63.4 H (9.0-27.0) mg/dL Creatinine 4.2 H 4.2 H (0.6-1.5) mg/dL Est GFR (CKD-EPI) 11 L 11 L (>=60) Glucose 135 H (70-110) mg/dL Calcium 8.4 L 8.6 L (8.7-10.3) mg/dL Microbiology - Last 24 Hours (Table) 02/25/23 12:56 Blood Culture - Preliminary Blood Assessment and Plan Plan: Assessment: 1. Acute kidney injury secondary to ATN secondary to hepatorenal syndrome. No hydronephrosis noted on CAT scan done December 2022. Creatinine 3.86 on admission -stable at 4.2 today. Creatinine near and January 2023. 2. Alcohol-induced liver cirrhosis. 3. Volume overload. Status post paracentesis. 2.5 L drained 02/27/2023. 4. Left lower extremity cellulitis on antibiotics. 5. Anemia. Iron replete. Plan: Maintain midodrine. Maintain IV Lasix. Maintain spironolactone. Avoid nephrotoxins. Continue to monitor renal function and urine output. Maintain Medel catheter. If no improvement in urine output in the next 24 hours, will initiate renal replacement therapy.
--- NOTE | 2023-02-28 13:25 | P.PN ---
Subjective Progress Note Date: 02/27/23 Principal diagnosis: Left foot wound and left leg cellulitis Patient is a 67-year-old female with a past medical history significant for cirrhosis of the liver, smoking, renal insufficiency who was recently admitted at this facility with the diffuse swelling to bilateral lower extremity patient also have a wound on the plantar aspect of the left foot which was debrided and culture subsequently came back positive with Pseudomonas aeruginosa MSSA and Enterococcus faecalis patient was [facility] to the [facility] with the midline and IV daptomycin and cefepime pending the patient was not able to get her antibiotics and has been sent to the hospital for the worsening cellulitis. On today's evaluation that is 02/27/2023, the patient continues to be afebrile, the patient is breathing comfortably on room air, the patient denies chest pain and no cough, patient denies abdominal pain, no nausea/vomiting /diarrhea , the patient has any worsening pain to the left leg Patient did have a creatinine of 4.2, no CBC was done today blood cultures pending Objective - Vital Signs Vital signs: Vital Signs Temp 98.1 F 02/27/23 07:12 Pulse 80 02/27/23 11:11 Resp 16 02/27/23 11:11 BP 104/66 02/27/23 11:11 Pulse Ox 99 02/27/23 11:11 FiO2 Intake & Output 02/26/23 02/27/23 02/27/23 18:59 06:59 18:59 Output Total 450 Balance -450 Weight 90.718 kg Output: Urine 450 Other: Voiding Method Indwelling Catheter Indwelling Catheter # Bowel Movements 1 - Exam GENERAL DESCRIPTION: An elderly female lying in bed in no distress RESPIRATORY SYSTEM: Unlabored breathing , decreased breath sounds at bases HEART: S1 S2 regular rate and rhythm , ABDOMEN: Soft , no tenderness EXTREMITIES: Left foot wound with minimal slough tissue left next to have some swelling and redness no foul-smelling drainage - Labs CBC & Chem 7: 02/28/23 06:09 02/28/23 06:09 Labs: Abnormal Lab Results - Last 24 Hours (Table) 02/26/23 02/26/23 Range/Units 05:01 16:26 PT 13.4 H (9.0-12.0) sec INR 1.3 H (<1.2) TIBC 155 L (228-460) UG/DL Transferrin 111.0 L (204.0-354.0) mg/dL Ferritin 386.0 H (10.0-291.0) ng/mL Microbiology - Last 24 Hours (Table) 02/25/23 12:56 Blood Culture - Preliminary Blood Assessment and Plan (1) Cellulitis Current Visit: Yes Status: Acute Code(s): L03.90 - CELLULITIS, UNSPECIFIED SNOMED Code(s): 730731736 (2) Left leg cellulitis Current Visit: No Status: Acute Code(s): L03.116 - CELLULITIS OF LEFT LOWER LIMB SNOMED Code(s): 33878522697106407 Plan: 1patient was in the hospital with worsening cellulitis to left lower extremity with recent culture positive for MSSA Enterococcus and Pseudomonas apparently the patient was unable to get antibiotic as prescribed on her last admission could be the likely reason for worsening of her left lower extremity cellulitis 2-patient also noticed to have worsening of the kidney function could be contributing to extra edema and swelling to the lower extremity however both daptomycin as well as cefepime are not nephrotoxic 3-patient also have a wound on the dorsum aspect of the left foot with slough tissue but no significant cellulitis and CT did not show any evidence of abscess 4-local wound care to the left foot wound with the Medihoney followed by moist dressing we also recommend Francisco wrap to the leg to keep the swelling down 5-patient to continue with cefepime and monitor clinical course closely Dictation was produced using [employer] dictation software. please excuse any grammatical, word or spelling errors. Time with Patient: Less than 30
[2023-02-28] MEDS: DARBEPOETIN ALFA 40 MCG/0.4 ML SYRINGE SQ SCH (14:57)
--- NOTE | 2023-02-28 14:59 | P.PN ---
Subjective Progress Note Date: 02/28/23 Principal diagnosis: Left foot wound and left leg cellulitis Patient is a 67-year-old female with a past medical history significant for cirrhosis of the liver, smoking, renal insufficiency who was recently admitted at this facility with the diffuse swelling to bilateral lower extremity patient also have a wound on the plantar aspect of the left foot which was debrided and culture subsequently came back positive with Pseudomonas aeruginosa MSSA and Enterococcus faecalis [facility] and IV daptomycin and cefepime pending the patient was not able to get her antibiotics and has been sent to the hospital for the worsening cellulitis. On today's evaluation that is 02/28/2023, the patient remains to be afebrile, the patient is breathing comfortably on room air, the patient slightly lethargic today did not answer any question no vomiting or diarrhea has been reported by the nursing staff Patient white count is slightly darker 12.41, creatinine is 4.2 Objective - Vital Signs Vital signs: Vital Signs Temp 97.7 F 02/28/23 07:32 Pulse 92 02/28/23 07:32 Resp 19 02/28/23 07:32 BP 111/68 02/28/23 07:32 Pulse Ox 97 02/28/23 09:17 FiO2 Intake & Output 02/27/23 02/28/23 02/28/23 18:59 06:59 18:59 Output Total 125 300 Balance -125 -300 Output: Urine 125 300 Other: Voiding Method Indwelling Catheter Indwelling Catheter Indwelling Catheter # Bowel Movements 1 - Exam GENERAL DESCRIPTION: An elderly female lying in bed in no distress RESPIRATORY SYSTEM: Unlabored breathing , decreased breath sounds at bases HEART: S1 S2 regular rate and rhythm , ABDOMEN: Soft , no tenderness EXTREMITIES: Bilateral lower extremity currently wrapped in Francisco wrap - Labs CBC & Chem 7: 02/28/23 06:09 02/28/23 06:09 Labs: Abnormal Lab Results - Last 24 Hours (Table) 02/27/23 02/28/23 02/28/23 Range/Units 05:55 06:09 06:09 WBC 12.41 H (4.50-10.00) X 10*3/uL RBC 2.58 L (4.10-5.20) X 10*6/uL Hgb 8.8 L (12.0-15.0) d/dL Hct 28.5 L (37.2-46.3) % MCV 110.5 H (80.0-97.0) FL MCH 34.1 H (27.0-32.0) pg MCHC 30.9 L (32.0-37.0) d/dL RDW 16.3 H (11.5-14.5) % Neutrophils # 9.28 H (1.80-7.70) X 10*3/uL Monocytes # 1.04 H (0.20-1.00) X 10*3/uL Eosinophils # 0.93 H (0.04-0.35) X 10*3/uL Carbon Dioxide 19.0 L 19.5 L (21.6-31.8) mmol/L Anion Gap 15.00 H 13.50 H (4.00-12.00) mmol/L BUN 61.6 H 63.4 H (9.0-27.0) mg/dL Creatinine 4.2 H 4.2 H (0.6-1.5) mg/dL Est GFR (CKD-EPI) 11 L 11 L (>=60) Glucose 135 H (70-110) mg/dL Calcium 8.4 L 8.6 L (8.7-10.3) mg/dL Microbiology - Last 24 Hours (Table) 02/25/23 12:56 Blood Culture - Preliminary Blood Assessment and Plan (1) Left leg cellulitis Current Visit: No Status: Acute Code(s): L03.116 - CELLULITIS OF LEFT LOWER LIMB SNOMED Code(s): 25206184005772787 Plan: 1patient was in the hospital with worsening cellulitis to left lower extremity with recent culture positive for MSSA Enterococcus and Pseudomonas apparently the patient was unable to get antibiotic as prescribed on her last admission could be the likely reason for worsening of her left lower extremity cellulitis 2-patient also noticed to have worsening of the kidney function could be contributing to extra edema and swelling to the lower extremity however both daptomycin as well as cefepime are not nephrotoxic 3-patient also have a wound on the dorsum aspect of the left foot with slough tissue but no significant cellulitis and CT did not show any evidence of abscess 4-local wound care to the left foot wound with the Medihoney followed by moist d ressing we also recommend Francisco wrap to the leg to keep the swelling down 5We will continue the patient on cefepime at this point reevaluate the leg tomorrow and monitor clinical course closely Dictation was produced using [employer] dictation software. please excuse any grammatical, word or spelling errors. Time with Patient: Less than 30
--- NOTE | 2023-03-01 00:34 | P.PN ---
Subjective Progress Note Date: 02/27/23 Patient is a 67-year-old lady with past medical history significant for left lower extremity cellulitis, hepatorenal syndrome, liver cirrhosis, who was at [facility] for treatment of left lower extremity cellulitis. Patient was apparently on IV antibiotics cefepime and daptomycin at the facility for left lower external cellulitis, apparently cellulitis was worsening so the ID rec ommended transferring patient to the hospital. Patient also developed generalized rash over the weekend which is improved. There was no complain of fever or chills. No cold or shortness of breath or chest pain. patient has been having good appetite. Initial lab work done in the ER showed WBC 10.4, crit of 11.4, platelet count 245, sodium 1:30, potassium 4, BUN 59, creatinine 3.86 CRP 5.2 UA done showed large leukocyte Estrace, urine nitrate negative, WBC 22 Patient was admitted to medicine service 02/27/2023 Patient is currently lying in bed. Awake alert and oriented. No complaints of chest pain or shortness of breath. Denies any nausea vomiting or abdominal pain. Left lower extremity pain is better with medications. Otherwise patient underwent paracentesis with 2.5 l of fluid removal. Laboratory data showed sodium 138 potassium 3.8 chloride 104 bicarb is 19 BUN 61.6 and creatinine 4.2. Patient is being continued on antibiotics daptomycin and cefepime. REVIEW OF SYSTEMS: CONSTITUTIONAL: No fever, no malaise, no fatigue. HEENT: No recent visual problems or hearing problems. Denied any sore throat. CARDIOVASCULAR: No chest pain, orthopnea, PND, no palpitations, no syncope. PULMONARY: No shortness of breath, no cough, no hemoptysis. GASTROINTESTINAL: No diarrhea, no nausea, no vomiting, no abdominal pain. The rest of the 14-point review of systems is negative. PHYSICAL EXAMINATION: GENERAL: The patient is alert and oriented x3, not in any acute distress. Well developed, well nourished. HEENT: Pupils are round and equally reacting to light. EOMI. No scleral icterus. No conjunctival pallor. Normocephalic, atraumatic. No pharyngeal erythema. No thyromegaly. CARDIOVASCULAR: S1 and S2 present. No murmurs, rubs, or gallops. PULMONARY: Chest is clear to auscultation, no wheezing or crackles. ABDOMEN: Distended, ventral wall hernia seen, no tenderness MUSCULOSKELETAL: No joint swelling or deformity. EXTREMITIES: 2+ pitting edema of lower extremities bilaterally, erythema of left lower extremity noticeable NEUROLOGICAL: Gross neurological examination did not reveal any focal deficits. SKIN: No rashes. Assessment and plan Left lower extremity cellulitis Acute kidney injury secondary to ATN secondary to hepatorenal syndrome. Alcohol-induced liver cirrhosis Ascites s/p paracentesis with 2.5 L fluid removal 0n 02/27. Anemia ruledout iron deficiency Monitor vital signs Monitor CBC Monitor CMP Follow-up on blood cultures Continue IV cefepime and daptomycin Continue IV Lasix 60 mg twice a day Continue Aldactone ID and nephrology is on board. Labs and medication were reviewed.. Continue same treatment. Continue with symptomatic treatment. Resume home medication. Monitor labs and vitals. DVT and GI prophylaxis. Further recommendations as per clinical course of the patient Objective - Vital Signs Vital signs: Vital Signs Temp 97.6 F 02/27/23 19:21 Pulse 91 02/27/23 19:21 Resp 20 02/27/23 19:21 BP 90/54 02/27/23 19:21 Pulse Ox 100 02/27/23 19:21 FiO2 Intake & Output 02/27/23 02/27/23 02/28/23 06:59 18:59 06:59 Output Total 450 125 Balance -450 -125 Output: Urine 450 125 Other: Voiding Method Indwelling Catheter Indwelling Catheter # Bowel Movements 1 1 - Labs CBC & Chem 7: 02/28/23 06:09 02/28/23 06:09 Labs: Abnormal Lab Results - Last 24 Hours (Table) 02/27/23 Range/Units 05:55 Carbon Dioxide 19.0 L (21.6-31.8) mmol/L Anion Gap 15.00 H (4.00-12.00) mmol/L BUN 61.6 H (9.0-27.0) mg/dL Creatinine 4.2 H (0.6-1.5) mg/dL Est GFR (CKD-EPI) 11 L (>=60) Glucose 135 H (70-110) mg/dL Calcium 8.4 L (8.7-10.3) mg/dL Microbiology - Last 24 Hours (Table) 02/25/23 12:56 Blood Culture - Preliminary Blood
--- NOTE | 2023-03-01 00:37 | P.PN ---
Subjective Progress Note Date: 02/28/23 Patient is a 67-year-old lady with past medical history significant for left lower extremity cellulitis, hepatorenal syndrome, liver cirrhosis, who was at [facility] for treatment of left lower extremity cellulitis. Patient was apparently on IV antibiotics cefepime and daptomycin at the facility for left lower external cellulitis, apparently cellulitis was worsening so the ID recommended transferring patient to the hospital. Patient also developed generalized rash over the weekend which is improved. There was no complain of fever or chills. No cold or shortness of breath or chest pain. patient has been having good appetite. Initial lab work done in the ER showed WBC 10.4, crit of 11.4, platelet count 245, sodium 1:30, potassium 4, BUN 59, creatinine 3.86 CRP 5.2 UA done showed large leukocyte Estrace, urine nitrate negative, WBC 22 Patient was admitted to medicine service 02/27/2023 Patient is currently lying in bed. Awake alert and oriented. No complaints of chest pain or shortness of breath. Denies any nausea vomiting or abdominal pain. Left lower extremity pain is better with medications. Otherwise patient underwent paracentesis with 2.5 l of fluid removal. Laboratory data showed sodium 138 potassium 3.8 chloride 104 bicarb is 19 BUN 61.6 and creatinine 4.2. Patient is being continued on antibiotics daptomycin and cefepime. 02/28/2023 Patient was awake and oriented. Able to tolerate oral diet this morning. No complaints of chest pain or shortness of breath. Pain is controlled. Left leg is Francisco wrapped. Patient has been afebrile. No cough or sputum production. No headache or dizziness or lightheadedness. Laboratory data showed WBC 12.4 hemoglobin 8.8 and platelets 250 BUN 63.4 and creatinine remains same at 4.2. Patient is being continued on IV Lasix and Aldactone. Nephrology is on board. Patient is also on midodrine. Current medications reviewed. REVIEW OF SYSTEMS: CONSTITUTIONAL: No fever, no malaise, no fatigue. HEENT: No recent visual problems or hearing problems. Denied any sore throat. CARDIOVASCULAR: No chest pain, orthopnea, PND, no palpitations, no syncope. PULMONARY: No shortness of breath, no cough, no hemoptysis. GASTROINTESTINAL: No diarrhea, no nausea, no vomiting, no abdominal pain. The rest of the 14-point review of systems is negative. PHYSICAL EXAMINATION: GENERAL: The patient is alert and oriented x3, not in any acute distress. Well developed, well nourished. HEENT: Pupils are round and equally reacting to light. EOMI. No scleral icterus. No conjunctival pallor. Normocephalic, atraumatic. No pharyngeal erythema. No thyromegaly. CARDIOVASCULAR: S1 and S2 present. No murmurs, rubs, or gallops. PULMONARY: Chest is clear to auscultation, no wheezing or crackles. ABDOMEN: Distended, ventral wall hernia seen, no tenderness MUSCULOSKELETAL: No joint swelling or deformity. EXTREMITIES: 2+ pitting edema of lower extremities bilaterally, erythema of left lower extremity noticeable NEUROLOGICAL: Gross neurological examination did not reveal any focal deficits. SKIN: No rashes. Assessment and plan Left lower extremity cellulitis Acute kidney injury secondary to ATN secondary to hepatorenal syndrome. Alcohol-induced liver cirrhosis Ascites s/p paracentesis with 2.5 L fluid removal 0n 02/27. Anemia ruledout iron deficiency Monitor vital signs Monitor CBC Monitor CMP Follow-up on blood cultures Continue IV cefepime and daptomycin Continue IV Lasix 60 mg twice a day Continue Aldactone ID and nephrology is on board. Labs and medication were reviewed.. Continue with symptomatic treatment. Resume home medication. Monitor labs and vitals. DVT and GI prophylaxis. Objective - Vital Signs Vital signs: Vital Signs Temp 97.4 F L 02/28/23 13:45 Pulse 92 02/28/23 13:45 Resp 17 02/28/23 13:45 BP 104/61 02/28/23 13:45 Pulse Ox 98 02/28/23 13:45 FiO2 Intake & Output 02/27/23 02/28/23 02/28/23 18:59 06:59 18:59 Output Total 125 300 200 Balance -125 -300 -200 Output: Urine 125 300 200 Other: Voiding Method Indwelling Catheter Indwelling Catheter Indwelling Catheter # Bowel Movements 1 - Labs CBC & Chem 7: 02/28/23 06:09 02/28/23 06:09 Labs: Abnormal Lab Results - Last 24 Hours (Table) 02/28/23 02/28/23 Range/Units 06:09 06:09 WBC 12.41 H (4.50-10.00) X 10*3/uL RBC 2.58 L (4.10-5.20) X 10*6/uL Hgb 8.8 L (12.0-15.0) d/dL Hct 28.5 L (37.2-46.3) % MCV 110.5 H (80.0-97.0) FL MCH 34.1 H (27.0-32.0) pg MCHC 30.9 L (32.0-37.0) d/dL RDW 16.3 H (11.5-14.5) % Neutrophils # 9.28 H (1.80-7.70) X 10*3/uL Monocytes # 1.04 H (0.20-1.00) X 10*3/uL Eosinophils # 0.93 H (0.04-0.35) X 10*3/uL Carbon Dioxide 19.5 L (21.6-31.8) mmol/L Anion Gap 13.50 H (4.00-12.00) mmol/L BUN 63.4 H (9.0-27.0) mg/dL Creatinine 4.2 H (0.6-1.5) mg/dL Est GFR (CKD-EPI) 11 L (>=60) Calcium 8.6 L (8.7-10.3) mg/dL Microbiology - Last 24 Hours (Table) 02/25/23 12:56 Blood Culture - Preliminary Blood
[2023-03-01] MEDS: MIDODRINE 5 MG TAB PO SCH ×4 (06:42→17:53)
[2023-03-01] MEDS: THIAMINE 100 MG TAB PO SCH (08:01)
[2023-03-01] MEDS: FUROSEMIDE 10 MG/ML 10 ML VIAL IV SCH ×2 (08:01→20:44)
[2023-03-01] MEDS: FOLIC ACID 1 MG TAB PO SCH (08:01)
[2023-03-01] MEDS: SPIRONOLACTONE 25 MG TAB PO SCH ×2 (08:01→20:44)
[2023-03-01] MEDS: FAMOTIDINE 20 MG TAB PO SCH (08:01)
[2023-03-01] MEDS: CEFEPIME 1 GM in SODIUM CHLORIDE 0.9% 50 ML IVPB SCH (08:02)
[2023-03-01 09:01] LABS: ALT 16 U/L (8-44); AST 48 U/L (13-35); Albumin 2.2 d/dL (3.8-4.9); Albumin/Globulin Ratio 0.73 Ratio (1.60-3.17); Alkaline Phosphatase 97 U/L (41-126); BUN/Creat Ratio 14.59 Ratio (12.00-20.00); Blood Urea Nitrogen 64.2 mg/dL (9.0-27.0); Calcium 8.3 mg/dL (8.7-10.3); Carbon Dioxide 18.9 mmol/L (21.6-31.8); Chloride 105 mmol/L (96-109); Glucose 84 mg/dL (70-110); Magnesium 1.8 mg/dL (1.5-2.4); Potassium 3.8 mmol/L (3.5-5.5); Sodium 137 mmol/L (135-145); Total Bilirubin 0.8 mg/dL (0.3-1.2); Total Protein 5.2 d/dL (6.2-8.2)
[2023-03-01] MEDS ORDERED: MIDODRINE 5 MG TAB PO ONE (09:45)
[2023-03-01 09:57] LABS: Basophils # (A) 0.09 X 10*3/uL (0.00-0.10); Basophils % (A) 0.7 %; Eosinophils % (A) 6.9 %; HCT 25.1 % (37.2-46.3); HGB 8.1 d/dL (12.0-15.0); Lymphocytes # (A) 0.85 X 10*3/uL (0.90-5.00); Lymphocytes % (A) 6.5 %; MCH 34.6 pg (27.0-32.0); MCHC 32.3 d/dL (32.0-37.0); MCV 107.3 FL (80.0-97.0); Mean Platelet Volume 11.1 FL (9.5-12.2); Monocytes # (A) 0.91 X 10*3/uL (0.20-1.00); NRBC Per 100 WBC 0 X 10*3/uL (0.00-0.01); Neutrophils # (A) 10.23 X 10*3/uL (1.80-7.70); Neutrophils % (A) 78.3 %; Platelet Count 234 X 10*3/uL (140-440); RBC 2.34 X 10*6/uL (4.10-5.20); RDW 16.6 % (11.5-14.5); WBC 13.06 X 10*3/uL (4.50-10.00)
--- NOTE | 2023-03-01 10:29 | P.PN ---
Subjective Progress Note Date: 03/01/23 Principal diagnosis: Left foot wound and left leg cellulitis Patient is a 67-year-old female with a past medical history significant for cirrhosis of the liver, smoking, renal insufficiency who was recently admitted at this facility with the diffuse swelling to bilateral lower extremity patient also have a wound on the plantar aspect of the left foot which was debrided and culture subsequently came back positive with Pseudomonas aeruginosa MSSA and Enterococcus faecalis patient was discharged to the halfway with the midline and IV daptomycin and cefepime pending the patient was not able to get her antibiotics and has been sent to the hospital for the worsening cellulitis. On today's evaluation that is 03/01/2023, the patient is afebrile, the patient is breathing comfortably on room air , the patient denies chest pain or cough, patient denies Abdominal pain , no nausea/vomiting /diarrhea is been reported denies any worsening pain to the left leg Patient white count is slightly up to 13.06, creatinine is 4.4 Objective - Vital Signs Vital signs: Vital Signs Temp 98.7 F 03/01/23 07:23 Pulse 98 03/01/23 07:23 Resp 17 03/01/23 07:23 BP 82/56 03/01/23 07:23 Pulse Ox 91 L 03/01/23 09:38 FiO2 Intake & Output 02/28/23 03/01/23 03/01/23 18:59 06:59 18:59 Output Total 200 200 Balance -200 -200 Output: Urine 200 200 Other: Voiding Method Indwelling Catheter Indwelling Catheter Indwelling Catheter # Bowel Movements 1 - Exam GENERAL DESCRIPTION: An elderly female lying in bed in no distress RESPIRATORY SYSTEM: Unlabored breathing , decreased breath sounds at bases HEART: S1 S2 regular rate and rhythm , ABDOMEN: Soft , no tenderness EXTREMITIES: Left lower extremity still have some erythema and swelling no drainage - Labs CBC & Chem 7: 03/01/23 06:18 03/01/23 06:18 Labs: Abnormal Lab Results - Last 24 Hours (Table) 02/28/23 02/28/23 03/01/23 Range/Units 06:09 06:09 06:18 WBC 12.41 H (4.50-10.00) X 10*3/uL RBC 2.58 L (4.10-5.20) X 10*6/uL Hgb 8.8 L (12.0-15.0) d/dL Hct 28.5 L (37.2-46.3) % MCV 110.5 H (80.0-97.0) FL MCH 34.1 H (27.0-32.0) pg MCHC 30.9 L (32.0-37.0) d/dL RDW 16.3 H (11.5-14.5) % Neutrophils # 9.28 H (1.80-7.70) X 10*3/uL Lymphocytes # (0.90-5.00) X 10*3/uL Monocytes # 1.04 H (0.20-1.00) X 10*3/uL Eosinophils # 0.93 H (0.04-0.35) X 10*3/uL Carbon Dioxide 19.5 L 18.9 L (21.6-31.8) mmol/L Anion Gap 13.50 H 13.10 H (4.00-12.00) mmol/L BUN 63.4 H 64.2 H (9.0-27.0) mg/dL Creatinine 4.2 H 4.4 H (0.6-1.5) mg/dL Est GFR (CKD-EPI) 11 L 10 L (>=60) Calcium 8.6 L 8.3 L (8.7-10.3) mg/dL AST 48 H (13-35) U/L Total Protein 5.2 L (6.2-8.2) d/dL Albumin 2.2 L (3.8-4.9) d/dL Albumin/Globulin Ratio 0.73 L (1.60-3.17) Ratio 03/01/23 Range/Units 06:18 WBC 13.06 H (4.50-10.00) X 10*3/uL RBC 2.34 L (4.10-5.20) X 10*6/uL Hgb 8.1 L (12.0-15.0) d/dL Hct 25.1 L (37.2-46.3) % MCV 107.3 H (80.0-97.0) FL MCH 34.6 H (27.0-32.0) pg MCHC (32.0-37.0) d/dL RDW 16.6 H (11.5-14.5) % Neutrophils # 10.23 H (1.80-7.70) X 10*3/uL Lymphocytes # 0.85 L (0.90-5.00) X 10*3/uL Monocytes # (0.20-1.00) X 10*3/uL Eosinophils # 0.90 H (0.04-0.35) X 10*3/uL Carbon Dioxide (21.6-31.8) mmol/L Anion Gap (4.00-12.00) mmol/L BUN (9.0-27.0) mg/dL Creatinine (0.6-1.5) mg/dL Est GFR (CKD-EPI) (>=60) Calcium (8.7-10.3) mg/dL AST (13-35) U/L Total Protein (6.2-8.2) d/dL Albumin (3.8-4.9) d/dL Albumin/Globulin Ratio (1.60-3.17) Ratio Microbiology - Last 24 Hours (Table) 02/25/23 12:56 Blood Culture - Preliminary Blood Assessment and Plan (1) Left leg cellulitis Current Visit: No Status: Acute Code(s): L03.116 - CELLULITIS OF LEFT LOWER LIMB SNOMED Code(s): 74665444328972947 Plan: 1patient was in the hospital with worsening cellulitis to left lower extremity with recent culture positive for MSSA Enterococcus and Pseudomonas apparently the patient was unable to get antibiotic as prescribed on her last admission could be the likely reason for worsening of her left lower extremity cellulitis 2-patient also noticed to have worsening of the kidney function could be contributing to extra edema and swelling to the lower extremity however both daptomycin as well as cefepime are not nephrotoxic 3-patient also have a wound on the dorsum aspect of the left foot with slough tissue but no significant cellulitis and CT did not show any evidence of abscess 4-local wound care to the left foot wound with the Medihoney followed by moist dressing we also recommend Francisco wrap to the leg to keep the swelling down 5We will discontinue cefepime start the patient on Zosyn and see clinical response, monitor clinical course closely Dictation was produced using [employer] dictation software. please excuse any grammatical, word or spelling errors. Time with Patient: Less than 30
[2023-03-01] MEDS: PIPERACILLIN-TAZOBACTAM 3.375 GM in SODIUM CHLORIDE 0.9% 100 ML IVPB SCH ×2 (10:51→20:44)
--- NOTE | 2023-03-01 11:54 | P.PN ---
Subjective Patient is seen in follow for acute kidney injury. Renal function worse. Urine output about 400 mL in 24 hours. On IV Lasix. Also on Aldactone. Underwent paracentesis on 02/27/2023 for 2.5 L drained. Resting in bed. Poor historian. Sister present at bedside. Vital signs are stable. General: No acute distress. HEENT: Head exam is unremarkable. LUNGS: No audible rhonchi or wheezes. HEART: Rate and Rhythm are regular. ABDOMEN: Obese, distention noted. EXTREMITITES: 2+ edema. Objective - Vital Signs Vital signs: Vital Signs Temp 98.7 F 03/01/23 07:23 Pulse 98 03/01/23 07:23 Resp 17 03/01/23 07:23 BP 82/56 03/01/23 07:23 Pulse Ox 91 L 03/01/23 09:38 FiO2 Intake & Output 02/28/23 03/01/23 03/01/23 18:59 06:59 18:59 Output Total 200 200 Balance -200 -200 Output: Urine 200 200 Other: Voiding Method Indwelling Catheter Indwelling Catheter Indwelling Catheter # Bowel Movements 1 - Labs CBC & Chem 7: 03/01/23 06:18 03/01/23 06:18 Labs: Abnormal Lab Results - Last 24 Hours (Table) 02/28/23 03/01/23 03/01/23 Range/Units 06:09 06:18 06:18 WBC 13.06 H (4.50-10.00) X 10*3/uL RBC 2.34 L (4.10-5.20) X 10*6/uL Hgb 8.1 L (12.0-15.0) d/dL Hct 25.1 L (37.2-46.3) % MCV 107.3 H (80.0-97.0) FL MCH 34.6 H (27.0-32.0) pg RDW 16.6 H (11.5-14.5) % Neutrophils # 10.23 H (1.80-7.70) X 10*3/uL Lymphocytes # 0.85 L (0.90-5.00) X 10*3/uL Eosinophils # 0.90 H (0.04-0.35) X 10*3/uL Carbon Dioxide 19.5 L 18.9 L (21.6-31.8) mmol/L Anion Gap 13.50 H 13.10 H (4.00-12.00) mmol/L BUN 63.4 H 64.2 H (9.0-27.0) mg/dL Creatinine 4.2 H 4.4 H (0.6-1.5) mg/dL Est GFR (CKD-EPI) 11 L 10 L (>=60) Calcium 8.6 L 8.3 L (8.7-10.3) mg/dL AST 48 H (13-35) U/L Total Protein 5.2 L (6.2-8.2) d/dL Albumin 2.2 L (3.8-4.9) d/dL Albumin/Globulin Ratio 0.73 L (1.60-3.17) Ratio Microbiology - Last 24 Hours (Table) 02/25/23 12:56 Blood Culture - Preliminary Blood Assessment and Plan Plan: Assessment: 1. Acute kidney injury secondary to ATN secondary to hepatorenal syndrome. No hydronephrosis noted on CAT scan done December 2022. Creatinine 3.86 on admission - 4.4 today. Oliguric. Creatinine near and January 2023. 2. Alcohol-induced liver cirrhosis. 3. Volume overload. Status post paracentesis. 2.5 L drained 02/27/2023. 4. Left lower extremity cellulitis on antibiotics. 5. Anemia. Iron replete. On Aranesp. Plan: Maintain midodrine. Maintain IV Lasix. Maintain spironolactone. Avoid nephrotoxins. Continue to monitor renal function and urine output. Maintain Medel catheter. Discussed in detail regarding need to start renal replacement therapy due to volume overload and severely depressed GFR. Family agreeable. Plan for first treatment of hemodialysis today and second treatment tomorrow.
--- NOTE | 2023-03-01 13:24 | P.PN ---
Subjective Progress Note Date: 03/01/23 67-year-old lady with past medical history significant for left lower extremity cellulitis, hepatorenal syndrome, liver cirrhosis, who was at [facility] for treatment of left lower extremity cellulitis. Patient was apparently on IV antibiotics cefepime and daptomycin at the facility for left lower external cellulitis, apparently cellulitis was worsening so the ID recommended transferring patient to the hospital. Patient also developed generalized rash over the weekend which is improved. There was no complain of fever or chills. No cold or shortness of breath or chest pain. patient has been having good appetite. Initial lab work done in the ER showed WBC 10.4, crit of 11.4, platelet count 2 45, sodium 1:30, potassium 4, BUN 59, creatinine 3.86 CRP 5.2 UA done showed large leukocyte Estrace, urine nitrate negative, WBC 22 Patient was admitted to medicine service 02/27/2023 Patient is currently lying in bed. Awake alert and oriented. No complaints of chest pain or shortness of breath. Denies any nausea vomiting or abdominal pain. Left lower extremity pain is better with medications. Otherwise patient underwent paracentesis with 2.5 l of fluid removal. Laboratory data showed sodium 138 potassium 3.8 chloride 104 bicarb is 19 BUN 61.6 and creatinine 4.2. Patient is being continued on antibiotics daptomycin and cefepime. 02/28/2023 Patient was awake and oriented. Able to tolerate oral diet this morning. No complaints of chest pain or shortness of breath. Pain is controlled. Left leg is Francisco wrapped. Patient has been afebrile. No cough or sputum production. No headache or dizziness or lightheadedness. Laboratory data showed WBC 12.4 hemoglobin 8.8 and platelets 250 BUN 63.4 and creatinine remains same at 4.2. Patient is being continued on IV Lasix and Aldactone. Nephrology is on board. Patient is also on midodrine. 03/01/2023: Patient seen and evaluated bedside. Care plan discussed with sister and son at bedside. Patient remains disoriented alert to person continue to fidget Minimal urine output, hemoglobin 8.1 creatinine 4.4 BUN of 64. Nephrology rounding plan for initiation of hemodialysis. Lastly consulted for vascular access for hemodialysis Objective - Vital Signs Vital signs: Vital Signs Temp 98.7 F 03/01/23 07:23 Pulse 98 03/01/23 07:23 Resp 17 03/01/23 07:23 BP 82/56 03/01/23 07:23 Pulse Ox 91 L 03/01/23 09:38 FiO2 Intake & Output 02/28/23 03/01/23 03/01/23 18:59 06:59 18:59 Output Total 200 200 Balance -200 -200 Output: Urine 200 200 Other: Voiding Method Indwelling Catheter Indwelling Catheter Indwelling Catheter # Bowel Movements 1 - Exam PHYSICAL EXAMINATION: GENERAL: The patient is alert and oriented x 1, ill appearance HEENT: Pupils are round and equally reacting to light. EOMI. CARDIOVASCULAR: S1 and S2 present. No murmurs, rubs, or gallops. PULMONARY: Decreased breath sounds bilaterally ABDOMEN: Distended, ventral wall hernia seen, no tenderness MUSCULOSKELETAL: No joint swelling or deformity. EXTREMITIES: 2+ pitting edema of lower extremities bilaterally, erythema of left lower extremity noticeable NEUROLOGICAL: Disoriented - Labs CBC & Chem 7: 03/01/23 06:18 03/01/23 06:18 Labs: Abnormal Lab Results - Last 24 Hours (Table) 03/01/23 03/01/23 Range/Units 06:18 06:18 WBC 13.06 H (4.50-10.00) X 10*3/uL RBC 2.34 L (4.10-5.20) X 10*6/uL Hgb 8.1 L (12.0-15.0) d/dL Hct 25.1 L (37.2-46.3) % MCV 107.3 H (80.0-97.0) FL MCH 34.6 H (27.0-32.0) pg RDW 16.6 H (11.5-14.5) % Neutrophils # 10.23 H (1.80-7.70) X 10*3/uL Lymphocytes # 0.85 L (0.90-5.00) X 10*3/uL Eosinophils # 0.90 H (0.04-0.35) X 10*3/uL Carbon Dioxide 18.9 L (21.6-31.8) mmol/L Anion Gap 13.10 H (4.00-12.00) mmol/L BUN 64.2 H (9.0-27.0) mg/dL Creatinine 4.4 H (0.6-1.5) mg/dL Est GFR (CKD-EPI) 10 L (>=60) Calcium 8.3 L (8.7-10.3) mg/dL AST 48 H (13-35) U/L Total Protein 5.2 L (6.2-8.2) d/dL Albumin 2.2 L (3.8-4.9) d/dL Albumin/Globulin Ratio 0.73 L (1.60-3.17) Ratio Microbiology - Last 24 Hours (Table) 02/25/23 12:56 Blood Culture - Preliminary Blood Assessment and Plan Assessment: Assessment and plan * Left lower extremity cellulitis * Acute metabolic encephalopathy * Acute kidney injury secondary to ATN secondary to hepatorenal syndrome. * Alcohol-induced liver cirrhosis * Ascites s/p paracentesis with 2.5 L fluid removal 0n 02/27. * Anemia of chronic kidney disease * Consult obtained from infectious disease, vascular surgery, nephrology * In regards to worsening renal function and renal failure, we will initiate hemodialysis * In regards to alcohol-induced liver cirrhosis, metabolic encephalopathy, follow-up on ammonia levels * In regards to episode of hypertension continue Midodrin * In regards to ascites from liver cirrhosis patient had paracentesis 2.5 L removed A/4, continue IV Lasix * In regards to anemia from chronic kidney disease continue to monitor H&H * In regards to left lower extremity cellulitis continue Zosyn and infectious disease following
[2023-03-01] MEDS: SODIUM BICARBONATE TAB 650 MG TAB PO SCH ×2 (13:33→20:44)
--- NOTE | 2023-03-01 13:55 | P.GSCN ---
History of Present Illness History of present illness: 67-year-old white female with multiple medical problem consulted for placement of dialysis cath. Patient has history of cirrhosis patient had a thoracentesis done patient continued function are getting worse consulted for placement of a venous catheter. Chest few crackles the lung bases first and second sound present Abdomen soft nontender femorals are 2+ patient cellulitis of left lower extremity Plan is placement of a temporary dialysis catheter risk and complication discussed Past Medical History Past Medical History: No Reported History, Liver Disease, Renal Disease Additional Past Medical History / Comment(s): Hernia, anemia, metabolic encephalopathy, cirrohisis History of Any Multi-Drug Resistant Organisms: None Reported Past Surgical History: Appendectomy, Hysterectomy Past Anesthesia/Blood Transfusion Reactions: No Reported Reaction Past Psychological History: No Psychological Hx Reported Smoking Status: Current every day smoker Past Alcohol Use History: Daily, Heavy Past Drug Use History: None Reported Medications and Allergies Home Medications Medication Instructions Recorded Confirmed Type Spironolactone [Aldactone] 25 mg PO DAILY #30 tab 01/17/23 02/25/23 Rx Cefepime [Maxipime] 1 gm IVPB Q12H 10 Days #20 ml 02/18/23 02/25/23 Rx DAPTOmycin 250 mg IV Q2D 10 Days #5 each 02/18/23 02/25/23 Rx Acetaminophen Tab [Tylenol] 500 mg PO Q6HR PRN tab 02/19/23 02/25/23 Rx Folic Acid 1 mg PO DAILY tab 02/19/23 02/25/23 Rx Furosemide [Lasix] 40 mg PO DAILY tab 02/19/23 02/25/23 Rx Midodrine [ProAmatine] 10 mg PO AC-TID #90 tab 02/19/23 02/25/23 Rx Thiamine [Vitamin B-1] 100 mg PO DAILY tab 02/19/23 02/25/23 Rx clonazePAM [KlonoPIN] 0.5 mg PO DAILY PRN 02/25/23 02/25/23 History Allergies Allergy/AdvReac Type Severity Reaction Status Date / Time No Known Allergies Allergy Verified 02/25/23 16:01 Surgical - Exam Vital Signs Temp Pulse Resp BP Pulse Ox 97.4 F L 80 20 95/71 100 02/25/23 11:15 02/25/23 11:15 02/25/23 11:15 02/25/23 11:15 02/25/23 11:15 Results - Labs 03/01/23 06:18 03/01/23 06:18 Abnormal Lab Results - Last 24 Hours (Table) 03/01/23 03/01/23 Range/Units 06:18 06:18 WBC 13.06 H (4.50-10.00) X 10*3/uL RBC 2.34 L (4.10-5.20) X 10*6/uL Hgb 8.1 L (12.0-15.0) d/dL Hct 25.1 L (37.2-46.3) % MCV 107.3 H (80.0-97.0) FL MCH 34.6 H (27.0-32.0) pg RDW 16.6 H (11.5-14.5) % Neutrophils # 10.23 H (1.80-7.70) X 10*3/uL Lymphocytes # 0.85 L (0.90-5.00) X 10*3/uL Eosinophils # 0.90 H (0.04-0.35) X 10*3/uL Carbon Dioxide 18.9 L (21.6-31.8) mmol/L Anion Gap 13.10 H (4.00-12.00) mmol/L BUN 64.2 H (9.0-27.0) mg/dL Creatinine 4.4 H (0.6-1.5) mg/dL Est GFR (CKD-EPI) 10 L (>=60) Calcium 8.3 L (8.7-10.3) mg/dL AST 48 H (13-35) U/L Total Protein 5.2 L (6.2-8.2) d/dL Albumin 2.2 L (3.8-4.9) d/dL Albumin/Globulin Ratio 0.73 L (1.60-3.17) Ratio Microbiology - Last 24 Hours (Table) 02/25/23 12:56 Blood Culture - Preliminary Blood Diabetes panel 03/01/23 Range/Units 06:18 Sodium 137 (135-145) mmol/L Potassium 3.8 (3.5-5.5) mmol/L Chloride 105 (96-109) mmol/L Carbon Dioxide 18.9 L (21.6-31.8) mmol/L BUN 64.2 H (9.0-27.0) mg/dL Creatinine 4.4 H (0.6-1.5) mg/dL Glucose 84 (70-110) mg/dL Calcium 8.3 L (8.7-10.3) mg/dL AST 48 H (13-35) U/L ALT 16 (8-44) U/L Alkaline Phosphatase 97 (41-126) U/L Total Protein 5.2 L (6.2-8.2) d/dL Albumin 2.2 L (3.8-4.9) d/dL Calcium panel 03/01/23 Range/Units 06:18 Calcium 8.3 L (8.7-10.3) mg/dL Albumin 2.2 L (3.8-4.9) d/dL Pituitary panel 03/01/23 Range/Units 06:18 Sodium 137 (135-145) mmol/L Potassium 3.8 (3.5-5.5) mmol/L Chloride 105 (96-109) mmol/L Carbon Dioxide 18.9 L (21.6-31.8) mmol/L BUN 64.2 H (9.0-27.0) mg/dL Creatinine 4.4 H (0.6-1.5) mg/dL Glucose 84 (70-110) mg/dL Calcium 8.3 L (8.7-10.3) mg/dL Adrenal panel 03/01/23 Range/Units 06:18 Sodium 137 (135-145) mmol/L Potassium 3.8 (3.5-5.5) mmol/L Chloride 105 (96-109) mmol/L Carbon Dioxide 18.9 L (21.6-31.8) mmol/L BUN 64.2 H (9.0-27.0) mg/dL Creatinine 4.4 H (0.6-1.5) mg/dL Glucose 84 (70-110) mg/dL Calcium 8.3 L (8.7-10.3) mg/dL Total Bilirubin 0.8 (0.3-1.2) mg/dL AST 48 H (13-35) U/L ALT 16 (8-44) U/L Alkaline Phosphatase 97 (41-126) U/L Total Protein 5.2 L (6.2-8.2) d/dL Albumin 2.2 L (3.8-4.9) d/dL
[2023-03-01] MEDS ORDERED: LIDOCAINE 1% INJ 10MG/ML (30 ML VIAL-PF) SQ ONE (14:00)
[2023-03-01] MEDS ORDERED: IV FLUID CONTINUATION 1,000 ML IV ONE (14:00)
--- NOTE | 2023-03-01 14:24 | IR ---
EXAMINATION TYPE: IR cvc insert non tunneled DATE OF EXAM: 03/01/2023 COMPARISON: NONE HISTORY: Fluoroscopy time. Fluoroscopy was provided to the referring clinician.
[2023-03-01 21:12] LABS: Hepatitis B Surface AB- Quant 3.5 mIU/mL
[2023-03-01 22:20] LABS: Hepatitis B Surface Antigen Nonreactive
--- NOTE | 2023-03-02 00:47 | P.PN ---
Subjective Progress Note Date: 03/02/23 67-year-old lady with past medical history significant for left lower extremity cellulitis, hepatorenal syndrome, liver cirrhosis, who was at [facility] for treatment of left lower extremity cellulitis. Patient was apparently on IV antibiotics cefepime and daptomycin at the facility for left lower external cellulitis, apparently cellulitis was worsening so the ID recommended transferring patient to the hospital. Patient also developed generalized rash over the weekend which is improved. There was no complain of fever or chills. No cold or shortness of breath or chest pain. patient has been having good appetite. Initial lab work done in the ER showed WBC 10.4, crit of 11.4, platelet count 2 45, sodium 1:30, potassium 4, BUN 59, creatinine 3.86 CRP 5.2 UA done showed large leukocyte Estrace, urine nitrate negative, WBC 22 Patient was admitted to medicine service 02/27/2023 Patient is currently lying in bed. Awake alert and oriented. No complaints of chest pain or shortness of breath. Denies any nausea vomiting or abdominal pain. Left lower extremity pain is better with medications. Otherwise patient underwent paracentesis with 2.5 l of fluid removal. Laboratory data showed sodium 138 potassium 3.8 chloride 104 bicarb is 19 BUN 61.6 and creatinine 4.2. Patient is being continued on antibiotics daptomycin and cefepime. 02/28/2023 Patient was awake and oriented. Able to tolerate oral diet this morning. No complaints of chest pain or shortness of breath. Pain is controlled. Left leg is Francisco wrapped. Patient has been afebrile. No cough or sputum production. No headache or dizziness or lightheadedness. Laboratory data showed WBC 12.4 hemoglobin 8.8 and platelets 250 BUN 63.4 and creatinine remains same at 4.2. Patient is being continued on IV Lasix and Aldactone. Nephrology is on board. Patient is also on midodrine. 03/01/2023: Patient seen and evaluated bedside. Care plan discussed with sister and son at bedside. Patient remains disoriented alert to person continue to fidget Minimal urine output, hemoglobin 8.1 creatinine 4.4 BUN of 64. Nephrology rounding plan for initiation of hemodialysis. Lastly consulted for vascular access for hemodialysis 03/02/2023: Patient seen and evaluated bedside. Patient is alert however oriented 0, patient is fidgeting, does not follow commands. Patient undergoing hemodialysis. Blood work shows hemoglobin of 8.8 hematocrit of 27 platelet count of 27. WBC 13.50 serum ammonia of 30 CRP of 5.10 Objective - Vital Signs Vital signs: Vital Signs Temp 97.7 F 03/01/23 19:16 Pulse 95 03/01/23 20:00 Resp 18 03/01/23 19:16 BP 106/71 03/01/23 19:16 Pulse Ox 98 03/01/23 19:16 FiO2 Intake & Output 03/01/23 03/01/23 03/02/23 06:59 18:59 06:59 Intake Total 750 Output Total 200 2200 Balance -200 -1450 Intake: IV 50 Oral 300 Hemodialysis 400 Output: Urine 200 200 Hemodialysis 2000 Other: Voiding Method Indwelling Catheter Indwelling Catheter Indwelling Catheter # Bowel Movements 1 0 - Exam PHYSICAL EXAMINATION: GENERAL: The patient is alert and oriented x 0, ill appearance, hemodialysis catheter right groin HEENT: Pupils are round and equally reacting to light. EOMI. CARDIOVASCULAR: S1 and S2 present. No murmurs, rubs, or gallops. PULMONARY: Decreased breath sounds bilaterally ABDOMEN: Distended, ventral wall hernia seen, no tenderness MUSCULOSKELETAL: No joint swelling or deformity. EXTREMITIES: 2+ pitting edema of lower extremities bilaterally, erythema of left lower extremity noticeable NEUROLOGICAL: Disoriented - Labs CBC & Chem 7: 03/02/23 06:49 03/02/23 06:49 Labs: Abnormal Lab Results - Last 24 Hours (Table) 03/01/23 03/01/23 Range/Units 06:18 06:18 WBC 13.06 H (4.50-10.00) X 10*3/uL RBC 2.34 L (4.10-5.20) X 10*6/uL Hgb 8.1 L (12.0-15.0) d/dL Hct 25.1 L (37.2-46.3) % MCV 107.3 H (80.0-97.0) FL MCH 34.6 H (27.0-32.0) pg RDW 16.6 H (11.5-14.5) % Neutrophils # 10.23 H (1.80-7.70) X 10*3/uL Lymphocytes # 0.85 L (0.90-5.00) X 10*3/uL Eosinophils # 0.90 H (0.04-0.35) X 10*3/uL Carbon Dioxide 18.9 L (21.6-31.8) mmol/L Anion Gap 13.10 H (4.00-12.00) mmol/L BUN 64.2 H (9.0-27.0) mg/dL Creatinine 4.4 H (0.6-1.5) mg/dL Est GFR (CKD-EPI) 10 L (>=60) Calcium 8.3 L (8.7-10.3) mg/dL AST 48 H (13-35) U/L Total Protein 5.2 L (6.2-8.2) d/dL Albumin 2.2 L (3.8-4.9) d/dL Albumin/Globulin Ratio 0.73 L (1.60-3.17) Ratio Assessment and Plan Assessment: Assessment and plan * Left lower extremity cellulitis * Acute metabolic encephalopathy * Acute kidney injury secondary to ATN secondary to hepatorenal syndrome. * Alcohol-induced liver cirrhosis * Ascites s/p paracentesis with 2.5 L fluid removal 0n 02/27. * Anemia of chronic kidney disease * Consult obtained from infectious disease, vascular surgery, nephrology * In regards to worsening renal function and renal failure, started hemodialysis 03/02 * In regards to alcohol-induced liver cirrhosis, metabolic encephalopathy, follow-up on ammonia levels, started on lactulose * In regards to episode of hypertension continue Midodrin * In regards to ascites from liver cirrhosis patient had paracentesis 2.5 L removed 02/27, continue IV Lasix, fluid management with dialysis * In regards to anemia from chronic kidney disease continue to monitor H&H * In regards to left lower extremity cellulitis continue Zosyn and infectious disease following
[2023-03-02] MEDS: SODIUM BICARBONATE TAB 650 MG TAB PO SCH ×2 (08:31→20:48)
[2023-03-02] MEDS: THIAMINE 100 MG TAB PO SCH (08:31)
[2023-03-02] MEDS: PIPERACILLIN-TAZOBACTAM 3.375 GM in SODIUM CHLORIDE 0.9% 100 ML IVPB SCH ×2 (08:31→20:49)
[2023-03-02] MEDS: MIDODRINE 5 MG TAB PO SCH ×3 (08:31→17:47)
[2023-03-02] MEDS: FAMOTIDINE 20 MG TAB PO SCH (08:31)
[2023-03-02] MEDS: FOLIC ACID 1 MG TAB PO SCH (08:31)
[2023-03-02] MEDS: FUROSEMIDE 10 MG/ML 10 ML VIAL IV SCH ×2 (08:32→20:49)
[2023-03-02] MEDS: SPIRONOLACTONE 25 MG TAB PO SCH ×2 (08:32→20:48)
[2023-03-02 09:57] LABS: Basophils # (A) 0.09 X 10*3/uL (0.00-0.10); Basophils % (A) 0.7 %; Eosinophils # (A) 1.04 X 10*3/uL (0.04-0.35); Eosinophils % (A) 7.7 %; HCT 27.4 % (37.2-46.3); HGB 8.8 d/dL (12.0-15.0); Lymphocytes # (A) 1.01 X 10*3/uL (0.90-5.00); Lymphocytes % (A) 7.5 %; MCH 34.6 pg (27.0-32.0); MCHC 32.1 d/dL (32.0-37.0); MCV 107.9 FL (80.0-97.0); Mean Platelet Volume 11.4 FL (9.5-12.2); Monocytes # (A) 1.27 X 10*3/uL (0.20-1.00); Monocytes % (A) 9.4 %; NRBC Per 100 WBC 0 X 10*3/uL (0.00-0.01); Platelet Count 227 X 10*3/uL (140-440); RBC 2.54 X 10*6/uL (4.10-5.20); RDW 16.4 % (11.5-14.5)
[2023-03-02 10:06] LABS: ALT 16 U/L (8-44); AST 44 U/L (13-35); Albumin 2.3 d/dL (3.8-4.9); Alkaline Phosphatase 104 U/L (41-126); BUN/Creat Ratio 12.76 Ratio (12.00-20.00); Blood Urea Nitrogen 53.6 mg/dL (9.0-27.0); Calcium 8.3 mg/dL (8.7-10.3); Carbon Dioxide 20.1 mmol/L (21.6-31.8); Chloride 104 mmol/L (96-109); Globulin 3.3 d/dL (1.6-3.3); Glucose 98 mg/dL (70-110); Potassium 3.9 mmol/L (3.5-5.5); Sodium 138 mmol/L (135-145); Total Bilirubin 0.9 mg/dL (0.3-1.2); Total Protein 5.6 d/dL (6.2-8.2)
[2023-03-02] MEDS ORDERED: MIDODRINE 5 MG TAB PO STA (11:09)
--- NOTE | 2023-03-02 11:25 | P.PN ---
Subjective Patient is seen in follow for acute kidney injury. Started on hemodialysis 03/01/2023. Tolerated 2 L ultrafiltration yesterday. Urine output about 300- 400 mL in 24 hours. On IV Lasix. Also on Aldactone. Underwent paracentesis on 02/27/2023 for 2.5 L drained. Resting in bed. Poor historian. Vital signs are stable. General: No acute distress. HEENT: Head exam is unremarkable. LUNGS: No audible rhonchi or wheezes. HEART: Rate and Rhythm are regular. ABDOMEN: Obese, distention noted. EXTREMITITES: 2+ edema. Objective - Vital Signs Vital signs: Vital Signs Temp 97.1 F L 03/02/23 07:33 Pulse 93 03/02/23 07:33 Resp 21 03/02/23 07:33 BP 97/70 03/02/23 07:33 Pulse Ox 97 03/02/23 07:33 FiO2 Intake & Output 03/01/23 03/02/23 03/02/23 18:59 06:59 18:59 Intake Total 750 Output Total 2200 100 Balance -1450 -100 Intake: IV 50 Oral 300 Hemodialysis 400 Output: Urine 200 100 Hemodialysis 2000 Other: Voiding Method Indwelling Catheter Indwelling Catheter Indwelling Catheter # Bowel Movements 0 1 - Labs CBC & Chem 7: 03/02/23 06:49 03/02/23 06:49 Labs: Abnormal Lab Results - Last 24 Hours (Table) 03/02/23 03/02/23 03/02/23 Range/Units 06:49 06:49 06:49 WBC 13.50 H (4.50-10.00) X 10*3/uL RBC 2.54 L (4.10-5.20) X 10*6/uL Hgb 8.8 L (12.0-15.0) d/dL Hct 27.4 L (37.2-46.3) % MCV 107.9 H (80.0-97.0) FL MCH 34.6 H (27.0-32.0) pg RDW 16.4 H (11.5-14.5) % Neutrophils # 10.00 H (1.80-7.70) X 10*3/uL Monocytes # 1.27 H (0.20-1.00) X 10*3/uL Eosinophils # 1.04 H (0.04-0.35) X 10*3/uL Carbon Dioxide 20.1 L (21.6-31.8) mmol/L Anion Gap 13.90 H (4.00-12.00) mmol/L BUN 53.6 H (9.0-27.0) mg/dL Creatinine 4.2 H (0.6-1.5) mg/dL Est GFR (CKD-EPI) 11 L (>=60) Calcium 8.3 L (8.7-10.3) mg/dL AST 44 H (13-35) U/L Ammonia 30 H (<30) umol/L C-Reactive Protein 5.10 H (0.00-0.80) mg/dL Total Protein 5.6 L (6.2-8.2) d/dL Albumin 2.3 L (3.8-4.9) d/dL Albumin/Globulin Ratio 0.70 L (1.60-3.17) Ratio Assessment and Plan Plan: Assessment: 1. Acute kidney injury secondary to ATN secondary to hepatorenal syndrome. No hydronephrosis noted on CAT scan done December 2022. Oliguric. Creatinine near and January 2023. Started on hemodialysis 03/01/2023. Has a temporary dialysis catheter. 2. Alcohol-induced liver cirrhosis. 3. Volume overload. Status post paracentesis. 2.5 L drained 02/27/2023. 4. Left lower extremity cellulitis on antibiotics. 5. Anemia. Iron replete. On Aranesp. Plan: Currently seen while undergoing hemodialysis. Next treatment on Saturday. Maintain midodrine. Additional dose if needed during dialysis. Maintain IV Lasix. Maintain spironolactone. Avoid nephrotoxins. Continue to monitor renal function and urine output. Maintain Medel catheter.
--- NOTE | 2023-03-02 11:35 | P.PN ---
Subjective Progress Note Date: 03/02/23 Principal diagnosis: Left foot wound and left leg cellulitis Patient is a 67-year-old female with a past medical history significant for cirrhosis of the liver, smoking, renal insufficiency who was recently admitted at this facility with the diffuse swelling to bilateral lower extremity patient also have a wound on the plantar aspect of the left foot which was debrided and culture subsequently came back positive with Pseudomonas aeruginosa MSSA and Enterococcus faecalis patient was discharged to the [facility] with the midline and IV daptomycin and cefepime pending the patient was not able to get her antibiotics and has been sent to the hospital for the worsening cellulitis. Patient did get dialysis catheter and started on dialysis as of 03/01/2023 On today's evaluation that is 03/02/2023, the patient remains to be afebrile, the patient is breathing comfortably on room air without need for supplemental oxygen, the patient denies chest pain shortness of breath and no cough, patient denies nausea/vomiting /diarrhea, and denies any abdominal pain the patient denies any worsening pain to the left leg Patient white count is 13.50, creatinine is 4.2 Objective - Vital Signs Vital signs: Vital Signs Temp 97.1 F L 03/02/23 07:33 Pulse 93 03/02/23 07:33 Resp 21 03/02/23 07:33 BP 97/70 03/02/23 07:33 Pulse Ox 97 03/02/23 07:33 FiO2 Intake & Output 03/01/23 03/02/23 03/02/23 18:59 06:59 18:59 Intake Total 750 Output Total 2200 100 Balance -1450 -100 Intake: IV 50 Oral 300 Hemodialysis 400 Output: Urine 200 100 Hemodialysis 2000 Other: Voiding Method Indwelling Catheter Indwelling Catheter Indwelling Catheter # Bowel Movements 0 1 - Exam GENERAL DESCRIPTION: An elderly female lying in bed in no distress RESPIRATORY SYSTEM: Unlabored breathing , decreased breath sounds at bases HEART: S1 S2 regular rate and rhythm , ABDOMEN: Soft , no tenderness EXTREMITIES: Left lower extremity redness has slightly decreased - Labs CBC & Chem 7: 03/02/23 06:49 03/02/23 06:49 Labs: Abnormal Lab Results - Last 24 Hours (Table) 03/02/23 03/02/23 03/02/23 Range/Units 06:49 06:49 06:49 WBC 13.50 H (4.50-10.00) X 10*3/uL RBC 2.54 L (4.10-5.20) X 10*6/uL Hgb 8.8 L (12.0-15.0) d/dL Hct 27.4 L (37.2-46.3) % MCV 107.9 H (80.0-97.0) FL MCH 34.6 H (27.0-32.0) pg RDW 16.4 H (11.5-14.5) % Neutrophils # 10.00 H (1.80-7.70) X 10*3/uL Monocytes # 1.27 H (0.20-1.00) X 10*3/uL Eosinophils # 1.04 H (0.04-0.35) X 10*3/uL Carbon Dioxide 20.1 L (21.6-31.8) mmol/L Anion Gap 13.90 H (4.00-12.00) mmol/L BUN 53.6 H (9.0-27.0) mg/dL Creatinine 4.2 H (0.6-1.5) mg/dL Est GFR (CKD-EPI) 11 L (>=60) Calcium 8.3 L (8.7-10.3) mg/dL AST 44 H (13-35) U/L Ammonia 30 H (<30) umol/L C-Reactive Protein 5.10 H (0.00-0.80) mg/dL Total Protein 5.6 L (6.2-8.2) d/dL Albumin 2.3 L (3.8-4.9) d/dL Albumin/Globulin Ratio 0.70 L (1.60-3.17) Ratio Assessment and Plan (1) Failure of outpatient treatment Current Visit: Yes Status: Acute Code(s): Z78.9 - OTHER SPECIFIED HEALTH STATUS SNOMED Code(s): 132143960 (2) Left leg cellulitis Current Visit: No Status: Acute Code(s): L03.116 - CELLULITIS OF LEFT LOWER LIMB SNOMED Code(s): 79148918375648441 Plan: 1patient was in the hospital with worsening cellulitis to left lower extremity with recent culture positive for MSSA Enterococcus and Pseudomonas apparently the patient was unable to get antibiotic as prescribed on her last admission could be the likely reason for worsening of her left lower extremity cellulitis 2-patient also noticed to have worsening of the kidney function and the patient had been started on dialysis 3-patient also have a wound on the dorsum aspect of the left foot with slough tissue but no significant cellulitis and CT did not show any evidence of abscess 4-local wound care to the left foot wound with the Medihoney followed by moist dressing to be changed daily we also recommend Francisco wrap to the leg to keep the swelling down 5We will continue the patient on Zosyn and monitor clinical course closely Dictation was produced using [employer] dictation software. please excuse any gram matical, word or spelling errors. Time with Patient: Less than 30
[2023-03-02] MEDS: LACTULOSE 20 GM/30 ML CUP PO SCH ×3 (12:49→22:34)
[2023-03-03] MEDS: MIDODRINE 5 MG TAB PO SCH ×3 (08:45→17:59)
[2023-03-03] MEDS: FUROSEMIDE 10 MG/ML 10 ML VIAL IV SCH ×3 (08:45→21:00)
[2023-03-03] MEDS: SODIUM BICARBONATE TAB 650 MG TAB PO SCH ×3 (08:46→20:14)
[2023-03-03] MEDS: SPIRONOLACTONE 25 MG TAB PO SCH ×3 (08:46→20:14)
[2023-03-03] MEDS: THIAMINE 100 MG TAB PO SCH ×2 (08:46→09:46)
[2023-03-03] MEDS: FOLIC ACID 1 MG TAB PO SCH ×2 (08:46→09:46)
[2023-03-03] MEDS: LACTULOSE 20 GM/30 ML CUP PO SCH ×3 (08:46→21:00)
[2023-03-03] MEDS: FAMOTIDINE 20 MG TAB PO SCH (08:46)
[2023-03-03] MEDS: PIPERACILLIN-TAZOBACTAM 3.375 GM in SODIUM CHLORIDE 0.9% 100 ML IVPB SCH ×2 (08:49→21:00)
[2023-03-03] MEDS: ACETAMINOPHEN TAB 500 MG TAB PO PRN ×2 (08:52→21:05)
--- NOTE | 2023-03-03 10:41 | P.PN ---
Subjective Patient is seen in follow for acute kidney injury. Started on hemodialysis 03/01/2023. Tolerated 1.5 L ultrafiltration yesterday. Urine output about 300- 400 mL in 24 hours. On IV Lasix. Also on Aldactone. Underwent paracentesis on 02/27/2023 for 2.5 L drained. Resting in bed. Poor historian. Vital signs are stable. General: No acute distress. HEENT: Head exam is unremarkable. LUNGS: No audible rhonchi or wheezes. HEART: Rate and Rhythm are regular. ABDOMEN: Obese, distention noted. EXTREMITITES: 2+ edema. Objective - Vital Signs Vital signs: Vital Signs Temp 97.8 F 03/03/23 07:45 Pulse 98 03/03/23 07:45 Resp 18 03/03/23 07:45 BP 112/76 03/03/23 07:45 Pulse Ox 96 03/03/23 07:45 FiO2 Intake & Output 03/02/23 03/03/23 03/03/23 18:59 06:59 18:59 Intake Total 1500 Output Total 1660 Balance -160 Intake: Intake, IV Titration 100 Amount Piperacillin-Tazobactam 3 100 .375 gm In Sodium Chloride 0.9% 100 ml @ 25 mls/hr IVPB Q12HR MAYANK Rx #:[id number] Oral 600 Hemodialysis 800 Output: Urine 60 Hemodialysis 1600 Other: Voiding Method Indwelling Catheter Indwelling Catheter # Bowel Movements 1 1 - Labs CBC & Chem 7: 03/02/23 06:49 03/02/23 06:49 Labs: Microbiology - Last 24 Hours (Table) 02/25/23 12:56 Blood Culture - Final Blood Assessment and Plan Plan: Assessment: 1. Acute kidney injury secondary to ATN secondary to hepatorenal syndrome. No hydronephrosis noted on CAT scan done December 2022. Oliguric. Creatinine near and January 2023. Started on hemodialysis 03/01/2023. Has a temporary dialysis catheter. 2. Alcohol-induced liver cirrhosis. 3. Volume overload. Status post paracentesis. 2.5 L drained 02/27/2023. 4. Left lower extremity cellulitis on antibiotics. 5. Anemia. Iron replete. On Aranesp. Plan: Hemodialysis tomorrow. Maintain midodrine. Additional dose if needed during dialysis. Maintain IV Lasix. Maintain spironolactone. Avoid nephrotoxins. Continue to monitor renal function and urine output. Maintain Medel catheter.
[2023-03-03 10:50] LABS: Anisocytosis Slight; HCT 27.4 % (34.0-46.0); HGB 8.6 gm/dL (11.4-16.0); Hypochromasia Marked; MCH 35.6 pg (25.0-35.0); MCHC 31.4 g/dL (31.0-37.0); MCV 113.2 fL (80.0-100.0); Macrocytosis Marked; Mean Platelet Volume 9.5; Platelet Count 163 k/uL (150-450); RBC 2.42 m/uL (3.80-5.40); RDW 16.3 % (11.5-15.5); WBC 11.3 k/uL (3.8-10.6)
--- NOTE | 2023-03-03 13:12 | P.PN ---
Subjective Progress Note Date: 03/03/23 67-year-old lady with past medical history significant for left lower extremity cellulitis, hepatorenal syndrome, liver cirrhosis, who was at [facility] for treatment of left lower extremity cellulitis. Patient was apparently on IV antibiotics cefepime and daptomycin at the facility for left lower external cellulitis, apparently cellulitis was worsening so the ID recommended transferring patient to the hospital. Patient also developed generalized rash over the weekend which is improved. There was no complain of fever or chills. No cold or shortness of breath or chest pain. patient has been having good appetite. Initial lab work done in the ER showed WBC 10.4, crit of 11.4, platelet count 2 45, sodium 1:30, potassium 4, BUN 59, creatinine 3.86 CRP 5.2 UA done showed large leukocyte Estrace, urine nitrate negative, WBC 22 Patient was admitted to medicine service 02/27/2023atient is currently lying in bed. Awake alert and oriented. No complaints of chest pain or shortness of breath. Denies any nausea vomiting or abdominal pain. Left lower extremity pain is better with medications. Otherwise patient underwent paracentesis with 2.5 l of fluid removal.Laboratory data showed sodium 138 potassium 3.8 chloride 104 bicarb is 19 BUN 61.6 and creatinine 4.2. Patient is being continued on antibiotics daptomycin and cefepime. 02/28/2023atient was awake and oriented. Able to tolerate oral diet this morning. No complaints of chest pain or shortness of breath. Pain is controlled. Left leg is Francisco wrapped. Patient has been afebrile. No cough or sputum production. No headache or dizziness or lightheadedness. Laboratory data showed WBC 12.4 hemoglobin 8.8 and platelets 250 BUN 63.4 and creatinine remains same at 4.2. Patient is being continued on IV Lasix and Aldactone. Nephrology is on board. Patient is also on midodrine. 03/01/2023: Patient seen and evaluated bedside. Care plan discussed with sister and son at bedside. Patient remains disoriented alert to person continue to fidget Minimal urine output, hemoglobin 8.1 creatinine 4.4 BUN of 64. Nephrology rounding plan for initiation of hemodialysis. Lastly consulted for vascular access for hemodialysis 03/02/2023: Patient seen and evaluated bedside. Patient is alert however oriented 0, patient is fidgeting, does not follow commands. Patient undergoing hemodialysis. Blood work shows hemoglobin of 8.8 hematocrit of 27 platelet count of 27. WBC 13.50 serum ammonia of 30 CRP of 5.10 03/03/2023: Patient seen and evaluated bedside, patient is drowsy, disoriented. Underwent hemodialysis yesterday we will follow-up on hematology and serum chemistry. Blood pressure 112/76, heart rate stable, afebrile Objective - Vital Signs Vital signs: Vital Signs Temp 97.8 F 03/03/23 07:45 Pulse 98 03/03/23 07:45 Resp 18 03/03/23 07:45 BP 112/76 03/03/23 07:45 Pulse Ox 96 03/03/23 07:45 FiO2 Intake & Output 03/02/23 03/03/23 03/03/23 18:59 06:59 18:59 Intake Total 1500 Output Total 1660 Balance -160 Intake: Intake, IV Titration 100 Amount Piperacillin-Tazobactam 3 100 .375 gm In Sodium Chloride 0.9% 100 ml @ 25 mls/hr IVPB Q12HR [facility] Rx #:[id number] Oral 600 Hemodialysis 800 Output: Urine 60 Hemodialysis 1600 Other: Voiding Method Indwelling Catheter Indwelling Catheter Indwelling Catheter # Bowel Movements 1 1 - Exam PHYSICAL EXAMINATION: GENERAL: The patient is alert and oriented x 0, ill appearance, hemodialysis catheter right groin HEENT: Normocephalic/atraumatic CARDIOVASCULAR: S1 and S2 present. 2+ lotion to edema PULMONARY: Decreased breath sounds bilaterally ABDOMEN: Distended, ventral wall hernia seen, no tenderness MUSCULOSKELETAL: No joint swelling or deformity. EXTREMITIES: 2+ pitting edema of lower extremities bilaterally, erythema of left lower extremity noticeable NEUROLOGICAL: Disoriented - Labs CBC & Chem 7: 03/03/23 10:14 03/02/23 06:49 Labs: Abnormal Lab Results - Last 24 Hours (Table) 03/03/23 03/03/23 Range/Units 10:14 10:14 WBC 11.3 H (3.8-10.6) k/uL RBC 2.42 L (3.80-5.40) m/uL Hgb 8.6 L (11.4-16.0) gm/dL Hct 27.4 L (34.0-46.0) % MCV 113.2 H (80.0-100.0) fL MCH 35.6 H (25.0-35.0) pg RDW 16.3 H (11.5-15.5) % Macrocytosis Marked A Ammonia 42 H (<30) umol/L Microbiology - Last 24 Hours (Table) 02/25/23 12:56 Blood Culture - Final Blood Assessment and Plan Assessment: Assessment and plan * Left lower extremity cellulitis * Acute metabolic encephalopathy * Acute kidney injury secondary to ATN secondary to hepatorenal syndrome. Started hemodialysis * Alcohol-induced liver cirrhosis * Ascites s/p paracentesis with 2.5 L fluid removal 0n 02/27. * Anemia of chronic kidney disease * Consult obtained from infectious disease, vascular surgery, nephrology * In regards to worsening renal function and renal failure, started hemodialysis 03/02 * In regards to alcohol-induced liver cirrhosis, metabolic encephalopathy, follow-up on ammonia levels, started on lactulose * In regards to episode of hypertension continue Midodrin * In regards to ascites from liver cirrhosis patient had paracentesis 2.5 L removed 02/27, continue IV Lasix, fluid management with dialysis * In regards to anemia from chronic kidney disease continue to monitor H&H * In regards to left lower extremity cellulitis continue Zosyn and infectious disease following
--- NOTE | 2023-03-03 13:27 | P.PN ---
Subjective Progress Note Date: 03/03/23 Principal diagnosis: Left foot wound and left leg cellulitis Patient is a 67-year-old female with a past medical history significant for cirrhosis of the liver, smoking, renal insufficiency who was recently admitted at this facility with the diffuse swelling to bilateral lower extremity patient also have a wound on the plantar aspect of the left foot which was debrided and culture subsequently came back positive with Pseudomonas aeruginosa MSSA and Enterococcus faecalis [facility]line and IV daptomycin and cefepime pending the patient was not able to get her antibiotics and has been sent to the hospital for the worsening cellulitis. Patient did get dialysis catheter and started on dialysis as of 03/01/2023 On today's evaluation that is 03/03/2023, the patient continues to be afebrile, the patient is breathing comfortably on room air, the patient slightly lethargic today and not a good historian, no vomiting diarrhea or any other changes reported by the nursing staff Patient white count is is down to 11.3, blood cultures negative Objective - Vital Signs Vital signs: Vital Signs Temp 97.8 F 03/03/23 07:45 Pulse 98 03/03/23 07:45 Resp 18 03/03/23 07:45 BP 112/76 03/03/23 07:45 Pulse Ox 96 03/03/23 07:45 FiO2 Intake & Output 03/02/23 03/03/23 03/03/23 18:59 06:59 18:59 Intake Total 1500 Output Total 1660 Balance -160 Intake: Intake, IV Titration 100 Amount Piperacillin-Tazobactam 3 100 .375 gm In Sodium Chloride 0.9% 100 ml @ 25 mls/hr IVPB Q12HR [facility] Rx #:[id number] Oral 600 Hemodialysis 800 Output: Urine 60 Hemodialysis 1600 Other: Voiding Method Indwelling Catheter Indwelling Catheter Indwelling Catheter # Bowel Movements 1 1 - Exam GENERAL DESCRIPTION: An elderly female lying in bed in no distress RESPIRATORY SYSTEM: Unlabored breathing , decreased breath sounds at bases HEART: S1 S2 regular rate and rhythm , ABDOMEN: Soft , no tenderness EXTREMITIES: Left lower extremity swelling and redness has decreased - Labs CBC & Chem 7: 03/03/23 10:14 03/02/23 06:49 Labs: Abnormal Lab Results - Last 24 Hours (Table) 03/03/23 03/03/23 Range/Units 10:14 10:14 WBC 11.3 H (3.8-10.6) k/uL RBC 2.42 L (3.80-5.40) m/uL Hgb 8.6 L (11.4-16.0) gm/dL Hct 27.4 L (34.0-46.0) % MCV 113.2 H (80.0-100.0) fL MCH 35.6 H (25.0-35.0) pg RDW 16.3 H (11.5-15.5) % Macrocytosis Marked A Ammonia 42 H (<30) umol/L Microbiology - Last 24 Hours (Table) 02/25/23 12:56 Blood Culture - Final Blood Assessment and Plan (1) Failure of outpatient treatment Current Visit: Yes Status: Acute Code(s): Z78.9 - OTHER SPECIFIED HEALTH STATUS SNOMED Code(s): 416724484 (2) Left leg cellulitis Current Visit: No Status: Acute Code(s): L03.116 - CELLULITIS OF LEFT LOWER LIMB SNOMED Code(s): 91757776784392443 Plan: 1patient was in the hospital with worsening cellulitis to left lower extremity with recent culture positive for MSSA Enterococcus and Pseudomonas apparently the patient was unable to get antibiotic as prescribed on her last admission could be the likely reason for worsening of her left lower extremity cellulitis 2-patient also noticed to have worsening of the kidney function and the patient had been started on dialysis 3-patient also have a wound on the dorsum aspect of the left foot with slough tissue but no significant cellulitis and CT did not show any evidence of abscess 4-local wound care to the left foot wound with the Medihoney followed by moist dressing to be changed daily we also recommend Francisco wrap to the leg to keep the swelling down 5patient remains to be afebrile the patient white count is trending down, patient to continue with Zosyn and monitor clinical course closely Dictation was produced using bContext dictation software. please excuse any grammatical, word or spelling errors. Time with Patient: Less than 30
[2023-03-04] MEDS: PIPERACILLIN-TAZOBACTAM 3.375 GM in SODIUM CHLORIDE 0.9% 100 ML IVPB SCH ×2 (08:11→20:00)
[2023-03-04] MEDS: THIAMINE 100 MG TAB PO SCH (08:12)
[2023-03-04] MEDS: MIDODRINE 5 MG TAB PO SCH ×3 (08:12→16:30)
[2023-03-04] MEDS: FAMOTIDINE 20 MG TAB PO SCH (08:12)
[2023-03-04] MEDS: FOLIC ACID 1 MG TAB PO SCH (08:12)
[2023-03-04] MEDS: SODIUM BICARBONATE TAB 650 MG TAB PO SCH (08:12)
[2023-03-04] MEDS: LACTULOSE 20 GM/30 ML CUP PO SCH ×3 (08:12→16:30)
[2023-03-04 10:30] LABS: ALT 18 U/L (4-34); AST 41 U/L (14-36); African American GFR (CKD) 14 (>60 ml/min/1.73 sqM); Albumin 2.2 g/dL (3.5-5.0); Albumin/Globulin Ratio 0.6; Alkaline Phosphatase 103 U/L (38-126); Anion Gap 8 mmol/L; Blood Urea Nitrogen 37 mg/dL (7-17); Calcium 7.8 mg/dL (8.4-10.2); Carbon Dioxide 24 mmol/L (22-30); Chloride 104 mmol/L (98-107); Globulin 3.5 g/dL; Glucose 93 mg/dL (74-99); Magnesium 1.7 mg/dL (1.6-2.3); Non-African American GFR(CKD) 12 (>60 ml/min/1.73 sqM); Potassium 3.2 mmol/L (3.5-5.1); Sodium 136 mmol/L (137-145); Total Bilirubin 1.1 mg/dL (0.2-1.3); Total Protein 5.7 g/dL (6.3-8.2)
--- NOTE | 2023-03-04 11:44 | P.PN ---
Subjective Progress Note Date: 03/04/23 67-year-old lady with past medical history significant for left lower extremity cellulitis, hepatorenal syndrome, liver cirrhosis, who was at [facility] for treatment of left lower extremity cellulitis. Patient was apparently on IV antibiotics cefepime and daptomycin at the facility for left lower external cellulitis, apparently cellulitis was worsening so the ID recommended transferring patient to the hospital. Patient also developed generalized rash over the weekend which is improved. There was no complain of fever or chills. No cold or shortness of breath or chest pain. patient has been having good appetite. Initial lab work done in the ER showed WBC 10.4, crit of 11.4, platelet count 2 45, sodium 1:30, potassium 4, BUN 59, creatinine 3.86 CRP 5.2 UA done showed large leukocyte Estrace, urine nitrate negative, WBC 22 Patient was admitted to medicine service 02/27/2023atient is currently lying in bed. Awake alert and oriented. No complaints of chest pain or shortness of breath. Denies any nausea vomiting or abdominal pain. Left lower extremity pain is better with medications. Otherwise patient underwent paracentesis with 2.5 l of fluid removal.Laboratory data showed sodium 138 potassium 3.8 chloride 104 bicarb is 19 BUN 61.6 and creatinine 4.2. Patient is being continued on antibiotics daptomycin and cefepime. 02/28/2023atient was awake and oriented. Able to tolerate oral diet this morning. No complaints of chest pain or shortness of breath. Pain is controlled. Left leg is Francisco wrapped. Patient has been afebrile. No cough or sputum production. No headache or dizziness or lightheadedness. Laboratory data showed WBC 12.4 hemoglobin 8.8 and platelets 250 BUN 63.4 and creatinine remains same at 4.2. Patient is being continued on IV Lasix and Aldactone. Nephrology is on board. Patient is also on midodrine. Dr Melgar Assumed care 03/01/2023: Patient seen and evaluated bedside. Care plan discussed with sister and son at bedside. Patient remains disoriented alert to person continue to fidget Minimal urine output, hemoglobin 8.1 creatinine 4.4 BUN of 64. Nephrology rounding plan for initiation of hemodialysis. Lastly consulted for vascular access for hemodialysis 03/02/2023: Patient seen and evaluated bedside. Patient is alert however oriented 0, patient is fidgeting, does not follow commands. Patient undergoing hemodialysis. Blood work shows hemoglobin of 8.8 hematocrit of 27 platelet count of 27. WBC 13.50 serum ammonia of 30 CRP of 5.10 03/03/2023: Patient seen and evaluated bedside, patient is drowsy, disoriented. Underwent hemodialysis yesterday we will follow-up on hematology and serum chemistry. Blood pressure 112/76, heart rate stable, afebrile 03/04/23: Patient seen and evaluated bedside, patient is alert however Disoriented second session of dialysis undergone today. Mentation has improved slightly. Continue patient on oral medications as tolerated. Continue IV Zosyn appreciated input from infectious disease. Serum chemistry reviewed. Does have low magnesium 1.7. To be corrected with hemodialysis. Sodium 136 potassium 3.2. Not medically ready for discharge Objective - Vital Signs Vital signs: Vital Signs Temp 97.4 F L 03/04/23 07:25 Pulse 91 03/04/23 07:25 Resp 20 03/04/23 07:25 BP 112/73 03/04/23 07:25 Pulse Ox 99 03/04/23 07:25 FiO2 Intake & Output 03/03/23 03/04/23 03/04/23 18:59 06:59 18:59 Other: Voiding Method Indwelling Catheter Indwelling Catheter Indwelling Catheter # Voids 1 # Bowel Movements 0 1 - Exam PHYSICAL EXAMINATION: GENERAL: The patient is alert and oriented x 0, ill appearance, hemodialysis catheter right groin HEENT: Normocephalic/atraumatic CARDIOVASCULAR: S1 and S2 present. 2+ lotion to edema PULMONARY: Decreased breath sounds bilaterally ABDOMEN: Distended, ventral wall hernia seen, no tenderness MUSCULOSKELETAL: No joint swelling or deformity. EXTREMITIES: 2+ pitting edema of lower extremities bilaterally, erythema of left lower extremity noticeable NEUROLOGICAL: Disoriented, moving nonfocal upper and lower extremities - Labs CBC & Chem 7: 03/03/23 10:14 03/04/23 09:23 Labs: Abnormal Lab Results - Last 24 Hours (Table) 03/04/23 03/04/23 Range/Units 09:23 Sodium 136 L (137-145) mmol/L Potassium 3.2 L (3.5-5.1) mmol/L BUN 37 H (7-17) mg/dL Creatinine 3.65 H (0.52-1.04) mg/dL Calcium 7.8 L (8.4-10.2) mg/dL AST 41 H (14-36) U/L Ammonia 32 H (<30) umol/L Total Protein 5.7 L (6.3-8.2) g/dL Albumin 2.2 L (3.5-5.0) g/dL Assessment and Plan Assessment: Assessment and plan * Left lower extremity cellulitis * Acute metabolic encephalopathy * Acute kidney injury secondary to ATN secondary to hepatorenal syndrome. Started hemodialysis * Alcohol-induced liver cirrhosis * Ascites s/p paracentesis with 2.5 L fluid removal on 02/27. * Anemia of chronic kidney disease * Consult obtained from infectious disease, vascular surgery, nephrology * In regards to worsening renal function and renal failure, continue hemodialysis * In regards to alcohol-induced liver cirrhosis, metabolic encephalopathy, f ollow-up on ammonia levels, started on lactulose * In regards to episode of hypertension continue Midodrin * In regards to ascites from liver cirrhosis patient had paracentesis 2.5 L removed 02/27, fluid management with dialysis * In regards to anemia from chronic kidney disease continue to monitor H&H * In regards to left lower extremity cellulitis continue Zosyn and infectious disease following * Prognosis remains guarded expect prolonged hospitalization
[2023-03-04] MEDS ORDERED: POTASSIUM CHLORIDE ER 20 MEQ TAB.ER PO STA (11:52)
--- NOTE | 2023-03-04 11:52 | P.PN ---
Subjective Patient is seen for follow-up for acute kidney injury. Currently seen on hemodialysis She is awake but not communicating much. Goal UF about 2 L today. Objective - Vital Signs Vital signs: Vital Signs Temp 97.4 F L 03/04/23 07:25 Pulse 91 03/04/23 07:25 Resp 20 03/04/23 07:25 BP 112/73 03/04/23 07:25 Pulse Ox 99 03/04/23 07:25 FiO2 Intake & Output 03/03/23 03/04/23 03/04/23 18:59 06:59 18:59 Other: Voiding Method Indwelling Catheter Indwelling Catheter Indwelling Catheter # Voids 1 # Bowel Movements 0 1 - Exam Patient is awake, comfortable, no acute distress Answers some questions appropriately Examination of the heart S1 and S2 Examination lungs bilateral breath sounds are heard with decreased breath sounds at the bases abdomen is distended soft nontender Examination lower extremities shows edema 2+ bilaterally with chronic skin changes - Labs CBC & Chem 7: 03/03/23 10:14 03/04/23 09:23 Labs: Abnormal Lab Results - Last 24 Hours (Table) 03/04/23 03/04/23 Range/Units 09:23 Sodium 136 L (137-145) mmol/L Potassium 3.2 L (3.5-5.1) mmol/L BUN 37 H (7-17) mg/dL Creatinine 3.65 H (0.52-1.04) mg/dL Calcium 7.8 L (8.4-10.2) mg/dL AST 41 H (14-36) U/L Ammonia 32 H (<30) umol/L Total Protein 5.7 L (6.3-8.2) g/dL Albumin 2.2 L (3.5-5.0) g/dL Assessment and Plan Assessment: 1. Acute kidney injury secondary to ATN secondary to hepatorenal syndrome. No hydronephrosis noted on CAT scan done December 2022. Oliguric. Creatinine near and January 2023. Started on hemodialysis 03/01/2023. Has a temporary dialysis catheter. 2. Alcohol-induced liver cirrhosis. 3. Volume overload. Status post paracentesis. 2.5 L drained 02/27/2023. 4. Left lower extremity cellulitis on antibiotics. 5. Anemia. Iron replete. On Aranesp. Plan: Repeat hemodialysis in a.m. Continue with midodrine DC sodium bicarb Replace potassium
[2023-03-04] MEDS: ACETAMINOPHEN TAB 500 MG TAB PO PRN (12:37)
[2023-03-04 15:39] LABS: HCT 27.1 % (37.2-46.3); HGB 8.6 d/dL (12.0-15.0); MCH 34.1 pg (27.0-32.0); MCHC 31.7 d/dL (32.0-37.0); MCV 107.5 FL (80.0-97.0); Mean Platelet Volume 11.2 FL (9.5-12.2); NRBC Per 100 WBC 0 X 10*3/uL (0.00-0.01); Platelet Count 98 X 10*3/uL (140-440); RBC 2.52 X 10*6/uL (4.10-5.20); RDW 16.5 % (11.5-14.5); WBC 5.87 X 10*3/uL (4.50-10.00)
[2023-03-05] MEDS ORDERED: MIDODRINE 5 MG TAB PO PRN (00:01)
[2023-03-05] MEDS: LACTULOSE 20 GM/30 ML CUP PO SCH ×3 (08:04→23:52)
[2023-03-05] MEDS: MIDODRINE 5 MG TAB PO SCH ×3 (08:04→16:36)
[2023-03-05] MEDS: FOLIC ACID 1 MG TAB PO SCH (08:04)
[2023-03-05] MEDS: PIPERACILLIN-TAZOBACTAM 3.375 GM in SODIUM CHLORIDE 0.9% 100 ML IVPB SCH ×2 (08:04→20:35)
[2023-03-05] MEDS: FAMOTIDINE 20 MG TAB PO SCH (08:04)
[2023-03-05] MEDS: THIAMINE 100 MG TAB PO SCH (08:04)
--- NOTE | 2023-03-05 08:59 | P.PN ---
Progress Note - Text Progress Note Date: 03/05/23 ([id number]) Responded to CODE BLUE. Compressions currently in process. Made my way to the head of bed to assist respiratory. Upon request, Amidate 10 mg was given and 8.0 endotracheal tube was placed at 22 cm at the left at 853 hours. Positive color change. Secured in left and care of respiratory.
[2023-03-05 09:10] LABS: Glucose,Whole Blood 125 mg/dL (70-110)
[2023-03-05 09:12] LABS: Glucose,Whole Blood 184 mg/dL (70-110)
[2023-03-05] MEDS: SODIUM CHLORIDE 0.9% 1,000 ML IV SCH (09:18)
[2023-03-05] MEDS ORDERED: CISATRACURIUM 2 MG/ML 5 ML VIAL IV ONE (09:36)
--- NOTE | 2023-03-05 09:37 | XR ---
EXAMINATION TYPE: XR chest 1V portable DATE OF EXAM: 03/05/2023 9:26 AM CLINICAL INDICATION:Female, 67 years old with history of Tube placement; [facility] COMPARISON: Chest radiographs from 02/05/2023 TECHNIQUE: XR chest 1V portable Frontal view of the chest. FINDINGS: Lungs/Pleura: There is no evidence of pleural effusion, focal consolidation, or pneumothorax. Pulmonary vascularity: Unremarkable. Heart/mediastinum: Cardiomediastinal silhouette is unremarkable. Musculoskeletal: No acute osseous pathology. Other findings: None Lines/Tubes: Endotracheal tube with distal tip 3.1 cm above the frantz. Nasogastric tube with its distal tip and side-port projecting under the diaphragm. IMPRESSION: 1. No acute cardiopulmonary disease/process. 2. Support tubes in appropriate position.
[2023-03-05 10:14] LABS: ABG Base Excess 0.3 mmol/L; ABG HCO3 25 mmol/L (21-25); ABG PCO2 39 mmHg (35-45); ABG PH 7.41 (7.35-7.45); ABG PO2 383 mmHg (83-108); ABG TCO2 26 mmol/L (19-24); Allen Test Performed? Yes
[2023-03-05 10:40] LABS: African American GFR (CKD) 17 (>60 ml/min/1.73 sqM); Anion Gap 10 mmol/L; Blood Urea Nitrogen 28 mg/dL (7-17); Calcium 7.8 mg/dL (8.4-10.2); Carbon Dioxide 21 mmol/L (22-30); Chloride 106 mmol/L (98-107); Glucose 105 mg/dL (74-99); Magnesium 1.6 mg/dL (1.6-2.3); Non-African American GFR(CKD) 15 (>60 ml/min/1.73 sqM); Sodium 137 mmol/L (137-145)
[2023-03-05 10:44] LABS: Anisocytosis Slight; Basophils % (A) 0 %; Eosinophils # (A) 0.5 k/uL (0-0.7); Eosinophils % (A) 4 %; Hypochromasia Marked; Lymphocytes # (A) 0.4 k/uL (1.0-4.8); Lymphocytes % (A) 3 %; MCHC 31.1 g/dL (31.0-37.0); MCV 112.6 fL (80.0-100.0); Macrocytosis Marked; Mean Platelet Volume 10.8; Monocytes # (A) 0.5 k/uL (0-1.0); Monocytes % (A) 4 %; Neutrophils # (A) 10.7 k/uL (1.3-7.7); Neutrophils % (A) 87 %; RBC 1.77 m/uL (3.80-5.40); RDW 16.6 % (11.5-15.5); WBC 12.3 k/uL (3.8-10.6)
[2023-03-05 10:50] LABS: HGB 6.2 gm/dL (11.4-16.0)
[2023-03-05 10:51] LABS: HCT 19.9 % (34.0-46.0)
[2023-03-05 11:00] LABS: Platelet Count 66 k/uL (150-450)
--- NOTE | 2023-03-05 11:08 | XR ---
EXAMINATION TYPE: XR chest 1V portable DATE OF EXAM: 03/05/2023 COMPARISON: 03/05/2023 HISTORY: Central line placement TECHNIQUE: Single frontal view of the chest is obtained. FINDINGS: Limited inspiration. Subsegmental bilateral consolidation most typical of atelectasis. ET tube approximately 2 cm above the frantz. NG tube appears in good position. New right-sided central l ine tip overlying right atrium. No pneumothorax. IMPRESSION: 1. New right-sided central line with tip overlying right atrium and no pneumothorax.
--- NOTE | 2023-03-05 11:10 | XR ---
EXAMINATION TYPE: XR chest 1V portable DATE OF EXAM: 03/05/2023 COMPARISON: 03/05/2023 HISTORY: Line placement TECHNIQUE: Single frontal view of the chest is obtained. FINDINGS: Limited inspiration with bilateral areas of subsegmental consolidation favor atelectasis. Pneumonia at the left lung base not excluded ET and NG tubes stable. Central line has been pulled ashwini k with the tip at the level of the SVC. No sizable pneumothorax. IMPRESSION: 1. Right-sided central line tip overlying SVC and no sizable pneumothorax. 2. Stable bilateral areas of consolidation. Favor atelectasis. Early pneumonia left lung base not exc luded
[2023-03-05] MEDS: fentaNYL (PF). 1,000 MCG in SODIUM CHLORIDE 0.9% 80 ML IV SCH (11:28)
[2023-03-05] MEDS: PANTOPRAZOLE 40 MG/10 ML VIAL IV SCH (11:49)
[2023-03-05] MEDS: CHLORHEXIDINE GLUCONATE 15 ML CUP MUCOUS MEM SCH ×2 (11:50→20:35)
--- NOTE | 2023-03-05 12:15 | P.PN ---
Subjective Patient is seen for follow-up for acute kidney injury. patient is transferred to the ICU this morning. Patient was in hemodialysis earlier today and 20 minutes into treatment was noted to have tachycardia with heart rate in the 150s and subsequently patient had a cardiac arrest and CODE BLUE was called. Circulation was restored within 5 minutes. Patient has been intubated. She is currently on the vent with FiO2 at 50%. Patient is sedated. Patient was awake with normal vital signs prior to initiation of dialysis. No hypotension noted. Minimal urine output. Objective - Vital Signs Vital signs: Vital Signs Temp 97.9 F 03/05/23 12:00 Pulse 93 03/05/23 12:00 Resp 16 03/05/23 12:00 BP 72/47 03/05/23 12:00 Pulse Ox 96 03/05/23 12:00 FiO2 50 03/05/23 12:00 Intake & Output 03/04/23 03/05/23 03/05/23 18:59 06:59 18:59 Intake Total 420 19.732 Output Total 2050 Balance -1630 19.732 Weight 90.718 kg Intake: Intake, IV Titration 19.732 Amount propofoL 1,000 mg In 19.732 Empty Bag 1 bag @ 15 MCG/ KG/MIN 8.165 mls/hr IV . [id number] [facility] Rx#:[id number] Oral 120 Hemodialysis 300 Output: Urine 50 Hemodialysis 2000 Other: Voiding Method Indwelling Catheter Indwelling Catheter # Voids 1 # Bowel Movements 1 1 ABP, PAP, CO, CI - Last Documented Arterial Blood Pressure 77/38 - Exam Patient is sedated and on the vent HEENT atraumatic normocephalic Examination of the heart S1 and S2 Examination lungs bilateral breath sounds are heard abdomen is soft with ventral hernia. Examination lower extremities shows edema 2+ bilaterally with chronic skin changes - Labs CBC & Chem 7: 03/05/23 10:11 03/05/23 10:11 Labs: Abnormal Lab Results - Last 24 Hours (Table) 03/04/23 03/05/23 03/05/23 Range/Units 09:23 08:51 09:09 WBC (3.8-10.6) k/uL RBC 2.52 L (4.10-5.20) X 10*6/uL Hgb 8.6 L (12.0-15.0) d/dL Hct 27.1 L (37.2-46.3) % MCV 107.5 H (80.0-97.0) FL MCH 34.1 H (27.0-32.0) pg MCHC 31.7 L (32.0-37.0) d/dL RDW 16.5 H (11.5-14.5) % Plt Count 98 L (140-440) X 10*3/uL Neutrophils # (1.3-7.7) k/uL Lymphocytes # (1.0-4.8) k/uL Macrocytosis D-Dimer (<0.60) mg/L FEU ABG pO2 (83-108) mmHg ABG Total CO2 (19-24) mmol/L ABG O2 Saturation (94-97) % Potassium (3.5-5.1) mmol/L Carbon Dioxide (22-30) mmol/L BUN (7-17) mg/dL Creatinine (0.52-1.04) mg/dL Glucose (74-99) mg/dL POC Glucose (mg/dL) 125 H 184 H (70-110) mg/dL Calcium (8.4-10.2) mg/dL 03/05/23 03/05/23 03/05/23 Range/Units 10:11 10:11 10:11 WBC 12.3 H (3.8-10.6) k/uL RBC 1.77 L (4.10-5.20) X 10*6/uL Hgb 6.2 L* D (12.0-15.0) d/dL Hct 19.9 L* (37.2-46.3) % MCV 112.6 H (80.0-97.0) FL MCH (27.0-32.0) pg MCHC (32.0-37.0) d/dL RDW 16.6 H (11.5-14.5) % Plt Count 66 L D (140-440) X 10*3/uL Neutrophils # 10.7 H (1.3-7.7) k/uL Lymphocytes # 0.4 L (1.0-4.8) k/uL Macrocytosis Marked A D-Dimer 20.54 H (<0.60) mg/L FEU ABG pO2 (83-108) mmHg ABG Total CO2 (19-24) mmol/L ABG O2 Saturation (94-97) % Potassium 3.0 L (3.5-5.1) mmol/L Carbon Dioxide 21 L (22-30) mmol/L BUN 28 H (7-17) mg/dL Creatinine 3.11 H (0.52-1.04) mg/dL Glucose 105 H (74-99) mg/dL POC Glucose (mg/dL) (70-110) mg/dL Calcium 7.8 L (8.4-10.2) mg/dL 03/05/23 Range/Units 10:12 WBC (3.8-10.6) k/uL RBC (4.10-5.20) X 10*6/uL Hgb (12.0-15.0) d/dL Hct (37.2-46.3) % MCV (80.0-97.0) FL MCH (27.0-32.0) pg MCHC (32.0-37.0) d/dL RDW (11.5-14.5) % Plt Count (140-440) X 10*3/uL Neutrophils # (1.3-7.7) k/uL Lymphocytes # (1.0-4.8) k/uL Macrocytosis D-Dimer (<0.60) mg/L FEU ABG pO2 383 H (83-108) mmHg ABG Total CO2 26 H (19-24) mmol/L ABG O2 Saturation 100.0 H (94-97) % Potassium (3.5-5.1) mmol/L Carbon Dioxide (22-30) mmol/L BUN (7-17) mg/dL Creatinine (0.52-1.04) mg/dL Glucose (74-99) mg/dL POC Glucose (mg/dL) (70-110) mg/dL Calcium (8.4-10.2) mg/dL Assessment and Plan Assessment: 1. Acute kidney injury secondary to ATN secondary to hepatorenal syndrome. No hydronephrosis noted on CAT scan done December 2022. Oliguric. Creatinine near and January 2023. Started on hemodialysis 03/01/2023. Has a temporary dial ysis catheter. 2. Alcohol-induced liver cirrhosis. 3. Volume overload. Status post paracentesis. 2.5 L drained 02/27/2023. 4. Left lower extremity cellulitis on antibiotics. 5. Anemia. Iron replete. On Aranesp. 6. Status post cardiac arrest, currently on the vent. Check troponin. Recheck potassium as the blood was drawn during treatment and will be inaccurate Plan: Recheck potassium Hemodialysis in a.m. Check troponins
[2023-03-05] MEDS ORDERED: SODIUM CHLORIDE 0.9% 1,000 ML IV ONE (12:17)
[2023-03-05] MEDS: NOREPINEPHRINE 4 MG in SODIUM CHLORIDE 0.9% 250 ML IV SCH (12:27)
--- NOTE | 2023-03-05 12:35 | P.PN ---
Subjective Progress Note Date: 03/05/23 67-year-old lady with past medical history significant for left lower extremity cellulitis, hepatorenal syndrome, liver cirrhosis, who was at [facility] for treatment of left lower extremity cellulitis. Patient was apparently on IV antibiotics cefepime and daptomycin at the facility for left lower external cellulitis, apparently cellulitis was worsening so the ID recommended transferring patient to the hospital. Patient also developed generalized rash over the weekend which is improved. There was no complain of fever or chills. No cold or shortness of breath or chest pain. patient has been having good appetite. Initial lab work done in the ER showed WBC 10.4, crit of 11.4, platelet count 2 45, sodium 1:30, potassium 4, BUN 59, creatinine 3.86 CRP 5.2 UA done showed large leukocyte Estrace, urine nitrate negative, WBC 22 Patient was admitted to medicine service 02/27/2023atient is currently lying in bed. Awake alert and oriented. No complaints of chest pain or shortness of breath. Denies any nausea vomiting or abdominal pain. Left lower extremity pain is better with medications. Otherwise patient underwent paracentesis with 2.5 l of fluid removal.Laboratory data showed sodium 138 potassium 3.8 chloride 104 bicarb is 19 BUN 61.6 and creatinine 4.2. Patient is being continued on antibiotics daptomycin and cefepime. 02/28/2023atient was awake and oriented. Able to tolerate oral diet this morning. No complaints of chest pain or shortness of breath. Pain is controlled. Left leg is Francisco wrapped. Patient has been afebrile. No cough or sputum production. No headache or dizziness or lightheadedness. Laboratory data showed WBC 12.4 hemoglobin 8.8 and platelets 250 BUN 63.4 and creatinine remains same at 4.2. Patient is being continued on IV Lasix and Aldactone. Nephrology is on board. Patient is also on midodrine. Dr Melgar Assumed care 03/01/2023: Patient seen and evaluated bedside. Care plan discussed with sister and son at bedside. Patient remains disoriented alert to person continue to fidget Minimal urine output, hemoglobin 8.1 creatinine 4.4 BUN of 64. Nephrology rounding plan for initiation of hemodialysis. Lastly consulted for vascular access for hemodialysis 03/02/2023: Patient seen and evaluated bedside. Patient is alert however oriented 0, patient is fidgeting, does not follow commands. Patient undergoing hemodialysis. Blood work shows hemoglobin of 8.8 hematocrit of 27 platelet count of 27. WBC 13.50 serum ammonia of 30 CRP of 5.10 03/03/2023: Patient seen and evaluated bedside, patient is drowsy, disoriented. Underwent hemodialysis yesterday we will follow-up on hematology and serum chemistry. Blood pressure 112/76, heart rate stable, afebrile 03/04/23: Patient seen and evaluated bedside, patient is alert however Disoriented second session of dialysis undergone today. Mentation has improved slightly. Continue patient on oral medications as tolerated. Continue IV Zosyn appreciated input from infectious disease. Serum chemistry reviewed. Does have low magnesium 1.7. To be corrected with hemodialysis. Sodium 136 potassium 3.2. Not medically ready for discharge 03/05/23: Patient was evaluated during CODE BLUE and in ICU. Patient had a brief loss of pulse and was given 1 round of epinephrine. Secondary to encep halopathy patient was intubated. While in ICU. Blood work was obtained which show hemoglobin less than 7. Nephrology following for hemodialysis. Dialysis was stopped secondary to hypotension. During the code. Patient transferred to ICU and family notified. Patient's sister was for notified about the events. Patient prognosis remains guarded. While in ICU patient started on Levophed drip Objective - Vital Signs Vital signs: Vital Signs Temp 97.9 F 03/05/23 12:00 Pulse 93 03/05/23 12:00 Resp 16 03/05/23 12:00 BP 72/47 03/05/23 12:00 Pulse Ox 96 03/05/23 12:00 FiO2 50 03/05/23 12:00 Intake & Output 03/04/23 03/05/23 03/05/23 18:59 06:59 18:59 Intake Total 420 31.798 Output Total 2049 Balance -1630 31.798 Weight 90.718 kg Intake: Intake, IV Titration 31.798 Amount propofoL 1,000 mg In 31.798 Empty Bag 1 bag @ 15 MCG/ KG/MIN 8.165 mls/hr IV . [id number] MAYANK Rx#:[id number] Oral 120 Hemodialysis 300 Output: Urine 50 Hemodialysis 2000 Other: Voiding Method Indwelling Catheter Indwelling Catheter # Voids 1 # Bowel Movements 1 1 ABP, PAP, CO, CI - Last Documented Arterial Blood Pressure 77/38 - Exam PHYSICAL EXAMINATION: GENERAL: The patient is alert and oriented x 0, ill appearance, hemodialysis catheter right groin, intubated CARDIOVASCULAR: S1 and S2 present. 2+ lower extremity edema PULMONARY: Decreased breath sounds bilaterally, intubated ABDOMEN: Distended, ventral wall hernia seen, no tenderness MUSCULOSKELETAL: No joint swelling or deformity. EXTREMITIES: 2+ pitting edema of lower extremities bilaterally, erythema of left lower extremity noticeable NEUROLOGICAL: Disoriented, intubated and sedated - Labs CBC & Chem 7: 03/05/23 10:11 03/05/23 10:11 Labs: Abnormal Lab Results - Last 24 Hours (Table) 03/04/23 03/05/23 03/05/23 Range/Units 09:23 08:51 09:09 WBC (3.8-10.6) k/uL RBC 2.52 L (4.10-5.20) X 10*6/uL Hgb 8.6 L (12.0-15.0) d/dL Hct 27.1 L (37.2-46.3) % MCV 107.5 H (80.0-97.0) FL MCH 34.1 H (27.0-32.0) pg MCHC 31.7 L (32.0-37.0) d/dL RDW 16.5 H (11.5-14.5) % Plt Count 98 L (140-440) X 10*3/uL Neutrophils # (1.3-7.7) k/uL Lymphocytes # (1.0-4.8) k/uL Macrocytosis D-Dimer (<0.60) mg/L FEU ABG pO2 (83-108) mmHg ABG Total CO2 (19-24) mmol/L ABG O2 Saturation (94-97) % Potassium (3.5-5.1) mmol/L Carbon Dioxide (22-30) mmol/L BUN (7-17) mg/dL Creatinine (0.52-1.04) mg/dL Glucose (74-99) mg/dL POC Glucose (mg/dL) 125 H 184 H (70-110) mg/dL Calcium (8.4-10.2) mg/dL 03/05/23 03/05/2303/05/23 Range/Units 10:11 10:11 10:11 WBC 12.3 H (3.8-10.6) k/uL RBC 1.77 L (4.10-5.20) X 10*6/uL Hgb 6.2 L* D (12.0-15.0) d/dL Hct 19.9 L* (37.2-46.3) % MCV 112.6 H (80.0-97.0) FL MCH (27.0-32.0) pg MCHC (32.0-37.0) d/dL RDW 16.6 H (11.5-14.5) % Plt Count 66 L D (140-440) X 10*3/uL Neutrophils # 10.7 H (1.3-7.7) k/uL Lymphocytes # 0.4 L (1.0-4.8) k/uL Macrocytosis Marked A D-Dimer 20.54 H (<0.60) mg/L FEU ABG pO2 (83-108) mmHg ABG Total CO2 (19-24) mmol/L ABG O2 Saturation (94-97) % Potassium 3.0 L (3.5-5.1) mmol/L Carbon Dioxide 21 L (22-30) mmol/L BUN 28 H (7-17) mg/dL Creatinine 3.11 H (0.52-1.04) mg/dL Glucose 105 H (74-99) mg/dL POC Glucose (mg/dL) (70-110) mg/dL Calcium 7.8 L (8.4-10.2) mg/dL 03/05/23 Range/Units 10:12 WBC (3.8-10.6) k/uL RBC (4.10-5.20) X 10*6/uL Hgb (12.0-15.0) d/dL Hct (37.2-46.3) % MCV (80.0-97.0) FL MCH (27.0-32.0) pg MCHC (32.0-37.0) d/dL RDW (11.5-14.5) % Plt Count (140-440) X 10*3/uL Neutrophils # (1.3-7.7) k/uL Lymphocytes # (1.0-4.8) k/uL Macrocytosis D-Dimer (<0.60) mg/L FEU ABG pO2 383 H (83-108) mmHg ABG Total CO2 26 H (19-24) mmol/L ABG O2 Saturation 100.0 H (94-97) % Potassium (3.5-5.1) mmol/L Carbon Dioxide (22-30) mmol/L BUN (7-17) mg/dL Creatinine (0.52-1.04) mg/dL Glucose (74-99) mg/dL POC Glucose (mg/dL) (70-110) mg/dL Calcium (8.4-10.2) mg/dL Assessment and Plan Assessment: Assessment and plan * Acute respiratory failure requiring intubation * Septic shock * Acute on chronic anemia * Left lower extremity cellulitis * Acute metabolic encephalopathy * Acute kidney injury secondary to ATN secondary to hepatorenal syndrome. Started hemodialysis * Alcohol-induced liver cirrhosis * Ascites s/p paracentesis with 2.5 L fluid removal on 02/27. * Anemia of chronic kidney disease * Consult obtained from infectious disease, vascular surgery, nephrology * In regards to worsening renal function and renal failure, nephrology to manage hemodialysis * In regards to alcohol-induced liver cirrhosis, metabolic encephalopathy, follow-up on ammonia levels, continue lactulose * In regards to episode of hypotension, started on levo fed in ICU * In regards to ascites from liver cirrhosis patient had paracentesis 2.5 L removed 02/27, fluid management with dialysis * In regards to anemia from chronic kidney disease continue to monitor H&H, transfuse as needed * In regards to left lower extremity cellulitis continue Zosyn and infectious disease following * Prognosis remains guarded expect prolonged hospitalization * Medical ICU team consulted
--- NOTE | 2023-03-05 12:35 | OP ---
OPERATIVE REPORT DATE OF SERVICE : PROCEDURE PERFORMED: Placement of a right radial arterial line. PREOPERATIVE DIAGNOSES: 1. Cardiac arrest. 2. Acute hypoxic respiratory failure. POSTOPERATIVE DIAGNOSES: 1. Cardiac arrest. 2. Acute hypoxic respiratory failure. ANESTHESIA USED: None deployed. DESCRIPTION OF PROCEDURE: The right wrist was prepared in a sterile fashion, and drapes were applied. The right radial artery was palpated, easily cannulated, and a guidewire was placed. A Cook catheter was inserted over the guidewire, and the guidewire was removed. Good blood flow and good waveform noted. No complications. Line was secured using 3-0 silk sutures. MMODL / IJN: [id number] /
--- NOTE | 2023-03-05 12:38 | OP ---
OPERATIVE REPORT DATE OF SERVICE : PROCEDURE PERFORMED: Placement of a right subclavian triple-lumen catheter. PREOPERATIVE DIAGNOSES: Acute cardiac arrest and hypoxic respiratory failure. POSTOPERATIVE DIAGNOSIS: Acute cardiac arrest and hypoxic respiratory failure. ANESTHESIA USED: 2 mL of 1% lidocaine. DESCRIPTION OF PROCEDURE: The patient was placed in supine position, area of the right subclavian region was prepared in a sterile fashion and drapes were applied. The area below the right subclavian was locally anesthetized with lidocaine. Then using the infraclavicular approach, the right subclavian vein was cannulated easily, and a guidewire was placed. The area around the guidewire was dilated. A triple-lumen catheter was inserted over the guidewire, and the guidewire was removed. Good blood flow, noted in 3 different ports of the triple-lumen catheter. Chest x-ray showed adequate placement of the line, no complications, and procedure was well tolerated. MMODL / IJN: [id number] /
--- NOTE | 2023-03-05 12:41 | P.CNPUL ---
History of Present Illness Consult date: 03/05/23 Requesting physician: Lisa Zacarias Reason for consult: other (Cardiac arrest) Chief complaint: Worsening left lower extremity cellulitis History of present illness: This is a 67-year-old female with history of multiple medical problems including chronic cellulitis of the left lower extremity, liver cirrhosis, hepatorenal syndrome, patient was treated on outpatient basis at the [facility] for her cellulitis and she was receiving antibiotics in the form of cefepime and daptomycin. However the patient was not making any improvement, and infectious disease recommended breaking the patient to the hospital and she was admitted on 02/25/2023 for IV antibiotics of her cellulitis. Since her admission until today the patient was seen by many consultants including internal medicine, infectious disease, vascular surgery, her condition was getting worse, and on 03/01/2023, patient had a right femoral dialysis catheter placed. And the patient has been on hemodialysis. Today, shortly after the patient started on dialysis, patient went into cardiac arrest, and [facility] was called. Patient had CPR for less than 5 minutes, she was intubated, and transferred to the ICU. Hence I was asked to see the patient on consultation. When the patient arrived to the ER, her blood pressure was noted to be marginal, and I went ahead and placed a right radial arterial line and a right subclavian triple-lumen catheter. Patient is now on assist control mode of mechanical ventilation, tidal volume of 400, rate of 14, FiO2 on the percent and PEEP of 5. ABG showed a pO2 of 383 pCO2 39 pH of 7.41. CBC showed a hemoglobin of 6.2, her hemoglobin yesterday was 8.6. D- dimer is significantly elevated at 20.54, hence a venous Doppler will be ordered stat, and decide whether the patient needs to be on heparin. BUN is 28 creatinine 3.11. Chest x-ray upon admission to the ICU showed no evidence of acute pulmonary process Review of Systems ROS unobtainable: due to endotracheal tube Past Medical History Past Medical History: No Reported History, Liver Disease, Renal Disease Additional Past Medical History / Comment(s): Hernia, anemia, metabolic encephalopathy, cirrohisis History of Any Multi-Drug Resistant Organisms: None Reported Past Surgical History: Appendectomy, Hysterectomy Past Anesthesia/Blood Transfusion Reactions: No Reported Reaction Past Psychological History: No Psychological Hx Reported Smoking Status: Current every day smoker Past Alcohol Use History: Daily, Heavy Past Drug Use History: None Reported Medications and Allergies Home Medications Medication Instructions Recorded Confirmed Type Spironolactone [Aldactone] 25 mg PO DAILY #30 tab 01/17/23 02/25/23 Rx Cefepime [Maxipime] 1 gm IVPB Q12H 10 Days #20 ml 02/18/23 02/25/23 Rx DAPTOmycin 250 mg IV Q2D 10 Days #5 each 02/18/23 02/25/23 Rx Acetaminophen Tab [Tylenol] 500 mg PO Q6HR PRN tab 02/19/23 02/25/23 Rx Folic Acid 1 mg PO DAILY tab 02/19/23 02/25/23 Rx Furosemide [Lasix] 40 mg PO DAILY tab 02/19/23 02/25/23 Rx Midodrine [ProAmatine] 10 mg PO AC-TID #90 tab 02/19/23 02/25/23 Rx Thiamine [Vitamin B-1] 100 mg PO DAILY tab 02/19/23 02/25/23 Rx clonazePAM [KlonoPIN] 0.5 mg PO DAILY PRN 02/25/23 02/25/23 History Allergies Allergy/AdvReac Type Severity Reaction Status Date / Time No Known Allergies Allergy Verified 02/25/23 16:01 Physical Exam Vitals: Vital Signs Temp Pulse Pulse Resp BP BP Pulse Ox 03/05/23 12:00 97.9 F 93 16 72/47 96 03/05/23 11:45 100 20 82/54 94 L 03/05/23 11:30 186 H 20 56/31 92 L 03/05/23 11:15 106 H 20 84/61 95 03/05/23 11:04 03/05/23 11:00 111 H 19 78/64 03/05/23 10:45 117 H 19 03/05/23 10:30 112 H 22 85/64 03/05/23 10:16 03/05/23 10:15 109 H 17 85/62 03/05/23 10:00 113 H 16 93/66 88 L 03/05/23 09:45 116 H 16 86/67 98 03/05/23 09:30 123 H 21 131/68 100 03/05/23 09:15 97.6 F 120 H 21 130/86 100 03/05/23 09:08 03/05/23 09:07 19 03/05/23 01:49 98 F 93 18 95/62 98 03/04/23 20:00 97.5 F L 64 18 98/64 98 03/04/23 14:10 97.5 F L 79 16 122/75 100 03/04/23 12:43 89 L 03/04/23 12:42 98.0 F 69 18 122/70 FiO2 03/05/23 12:00 50 03/05/23 11:45 03/05/23 11:30 03/05/23 11:15 03/05/23 11:04 50 03/05/23 11:00 03/05/23 10:45 03/05/23 10:30 03/05/23 10:16 50 03/05/23 10:15 03/05/23 10:00 03/05/23 09:45 03/05/23 09:30 03/05/23 09:15 03/05/23 09:08 100 03/05/23 09:07 100 03/05/23 01:49 03/04/23 20:00 03/04/23 14:10 03/04/23 12:43 03/04/23 12:42 Intake and Output 03/04/23 03/05/23 03/05/23 22:59 06:59 14:59 Intake Total 120 25.675 Output Total 50 Balance 70 25.675 Intake: Intake, IV Titration 25.675 Amount propofoL 1,000 mg In 25.675 Empty Bag 1 bag @ 15 MCG/ KG/MIN 8.165 mls/hr IV . [id number] [facility] Rx#:[id number] Oral 120 Output: Urine 50 Other: Voiding Method Indwelling Catheter # Voids 1 # Bowel Movements 1 1 ABP, PAP, CO, CI - Last 8 Hours Arterial Blood Pressure 77/38 Arterial Blood Pressure 99/83 Arterial Blood Pressure 97/46 Arterial Blood Pressure 98/46 Arterial Blood Pressure 106/56 Arterial Blood Pressure 114/57 Arterial Blood Pressure 109/50 Arterial Blood Pressure 106/47 Physical Exam: Revealed a 67-year-old female, frail looking, chronically ill- looking, intubated mechanically ventilated and seems to be restless, agitated, and thrashing in bed. No purposeful movement noted. Head: Atraumatic, normocephalic, endotracheal tube and orogastric tubes are intact. HEENT:[ Pupils are dilated but reactive to light. Neck is supple.] [No neck masses.] [No thyromegaly.] [No JVD.] Chest: [Symmetrical chest expansion, clear bilaterally no crackles or rhonchi or wheezes Cardiac Exam: Distant S1 and S2, no S3 gallop, 2/6 systolic murmur throughout the precordium.] Abdomen: [Soft, nontender, no megaly, no rebound, no guarding, normal bowel sounds.] Extremities: 2+ bipedal edema with chronic skin changes, left lower extremity is wrapped with a sterile dressing, patient has chronic cellulitis of the left lower extremity noted. Diminished distal pulses. Neurological Exam: Unable to assess patient is sedated, on propofol, noted to be restless and agitated. Psychiatric: Could not assess. Skin: Evidence of chronic cellulitis of left lower extremity and chronic erythematous changes in both lower extremities noted. Results - Laboratory Findings CBC and BMP: 03/05/23 10:11 03/05/23 10:11 ABG ABG pH 7.41 (7.35-7.45) 03/05/23 10:12 ABG pCO2 39 mmHg (35-45) 03/05/23 10:12 ABG pO2 383 mmHg (83-108) H 03/05/23 10:12 ABG O2 Saturation 100.0 % (94-97) H 03/05/23 10:12 PT/INR, D-dimer PT 13.4 sec (9.0-12.0) H 02/26/23 16:26 INR 1.3 (<1.2) H 02/26/23 16:26 D-Dimer 20.54 mg/L FEU (<0.60) H 03/05/23 10:11 Abnormal lab findings: Abnormal Labs 02/25/23 02/25/23 02/25/23 12:56 12:56 12:56 WBC RBC 3.17 L Hgb Hct MCV 114.8 H MCH 36.0 H MCHC RDW 16.3 H Plt Count Neutrophils # 8.2 H Lymphocytes # 0.8 L Monocytes # Eosinophils # Macrocytosis Marked A ESR 42 H PT INR D-Dimer ABG pO2 ABG Total CO2 ABG O2 Saturation Sodium Potassium Carbon Dioxide Anion Gap BUN 59 H Creatinine 3.86 H Est GFR (CKD-EPI) Glucose POC Glucose (mg/dL) Calcium TIBC Transferrin Ferritin AST 54 H Ammonia C-Reactive Protein 5.2 H Total Protein Albumin 2.5 L Albumin/Globulin Ratio Urine Appearance Cloudy H Urine Protein 1+ H Urine Ketones Trace H Urine Blood Large H Ur Leukocyte Esterase Large H Urine RBC 55 H Urine WBC 22 H Amorphous Sediment Rare H Urine Bacteria Rare H Urine Mucus Rare H Urine Yeast (Budding) Moderate H 02/26/23 02/26/23 02/26/23 05:01 05:01 05:01 WBC 12.9 H RBC 2.50 L Hgb 9.0 L D Hct 28.0 L MCV 112.2 H MCH 35.8 H MCHC RDW 16.5 H Plt Count Neutrophils # 10.3 H Lymphocytes # 0.9 L Monocytes # Eosinophils # 0.8 H Macrocytosis Marked A ESR PT INR D-Dimer ABG pO2 ABG Total CO2 ABG O2 Saturation Sodium 136 L Potassium Carbon Dioxide 20 L Anion Gap BUN 62 H Creatinine 3.58 H Est GFR (CKD-EPI) Glucose POC Glucose (mg/dL) Calcium 8.2 L TIBC 155 L Transferrin 111.0 L Ferritin 386.0 H AST 63 H Ammonia C-Reactive Protein Total Protein 6.1 L Albumin 2.3 L Albumin/Globulin Ratio Urine Appearance Urine Protein Urine Ketones Urine Blood Ur Leukocyte Esterase Urine RBC Urine WBC Amorphous Sediment Urine Bacteria Urine Mucus Urine Yeast (Budding) 02/26/23 02/27/23 02/28/23 16:26 05:55 06:09 WBC RBC Hgb Hct MCV MCH MCHC RDW Plt Count Neutrophils # Lymphocytes # Monocytes # Eosinophils # Macrocytosis ESR PT 13.4 H INR 1.3 H D-Dimer ABG pO2 ABG Total CO2 ABG O2 Saturation Sodium Potassium Carbon Dioxide 19.0 L 19.5 L Anion Gap 15.00 H 13.50 H BUN 61.6 H 63.4 H Creatinine 4.2 H 4.2 H Est GFR (CKD-EPI) 11 L 11 L Glucose 135 H POC Glucose (mg/dL) Calcium 8.4 L 8.6 L TIBC Transferrin Ferritin AST Ammonia C-Reactive Protein Total Protein Albumin Albumin/Globulin Ratio Urine Appearance Urine Protein Urine Ketones Urine Blood Ur Leukocyte Esterase Urine RBC Urine WBC Amorphous Sediment Urine Bacteria Urine Mucus Urine Yeast (Budding) 02/28/23 03/01/23 03/01/23 06:09 06:18 06:18 WBC 12.41 H 13.06 H RBC 2.58 L 2.34 L Hgb 8.8 L 8.1 L Hct 28.5 L 25.1 L MCV 110.5 H 107.3 H MCH 34.1 H 34.6 H MCHC 30.9 L RDW 16.3 H 16.6 H Plt Count Neutrophils # 9.28 H 10.23 H Lymphocytes # 0.85 L Monocytes # 1.04 H Eosinophils # 0.93 H 0.90 H Macrocytosis ESR PT INR D-Dimer ABG pO2 ABG Total CO2 ABG O2 Saturation Sodium Potassium Carbon Dioxide 18.9 L Anion Gap 13.10 H BUN 64.2 H Creatinine 4.4 H Est GFR (CKD-EPI) 10 L Glucose POC Glucose (mg/dL) Calcium 8.3 L TIBC Transferrin Ferritin AST 48 H Ammonia C-Reactive Protein Total Protein 5.2 L Albumin 2.2 L Albumin/Globulin Ratio 0.73 L Urine Appearance Urine Protein Urine Ketones Urine Blood Ur Leukocyte Esterase Urine RBC Urine WBC Amorphous Sediment Urine Bacteria Urine Mucus Urine Yeast (Budding) 03/02/23 03/02/23 03/02/23 06:49 06:49 06:49 WBC 13.50 H RBC 2.54 L Hgb 8.8 L Hct 27.4 L MCV 107.9 H MCH 34.6 H MCHC RDW 16.4 H Plt Count Neutrophils # 10.00 H Lymphocytes # Monocytes # 1.27 H Eosinophils # 1.04 H Macrocytosis ESR PT INR D-Dimer ABG pO2 ABG Total CO2 ABG O2 Saturation Sodium Potassium Carbon Dioxide 20.1 L Anion Gap 13.90 H BUN 53.6 H Creatinine 4.2 H Est GFR (CKD-EPI) 11 L Glucose POC Glucose (mg/dL) Calcium 8.3 L TIBC Transferrin Ferritin AST 44 H Ammonia 30 H C-Reactive Protein 5.10 H Total Protein 5.6 L Albumin 2.3 L Albumin/Globulin Ratio 0.70 L Urine Appearance Urine Protein Urine Ketones Urine Blood Ur Leukocyte Esterase Urine RBC Urine WBC Amorphous Sediment Urine Bacteria Urine Mucus Urine Yeast (Budding) 03/03/23 03/03/23 03/04/23 10:14 10:14 09:23 WBC 11.3 H RBC 2.42 L Hgb 8.6 L Hct 27.4 L MCV 113.2 H MCH 35.6 H MCHC RDW 16.3 H Plt Count Neutrophils # Lymphocytes # Monocytes # Eosinophils # Macrocytosis Marked A ESR PT INR D-Dimer ABG pO2 ABG Total CO2 ABG O2 Saturation Sodium Potassium Carbon Dioxide Anion Gap BUN Creatinine Est GFR (CKD-EPI) Glucose POC Glucose (mg/dL) Calcium TIBC Transferrin Ferritin AST Ammonia 42 H 32 H C-Reactive Protein Total Protein Albumin Albumin/Globulin Ratio Urine Appearance Urine Protein Urine Ketones Urine Blood Ur Leukocyte Esterase Urine RBC Urine WBC Amorphous Sediment Urine Bacteria Urine Mucus Urine Yeast (Budding) 03/04/23 03/04/23 03/05/23 09:23 09:23 08:51 WBC RBC 2.52 L Hgb 8.6 L Hct 27.1 L MCV 107.5 H MCH 34.1 H MCHC 31.7 L RDW 16.5 H Plt Count 98 L Neutrophils # Lymphocytes # Monocytes # Eosinophils # Macrocytosis ESR PT INR D-Dimer ABG pO2 ABG Total CO2 ABG O2 Saturation Sodium 136 L Potassium 3.2 L Carbon Dioxide Anion Gap BUN 37 H Creatinine 3.65 H Est GFR (CKD-EPI) Glucose POC Glucose (mg/dL) 125 H Calcium 7.8 L TIBC Transferrin Ferritin AST 41 H Ammonia C-Reactive Protein Total Protein 5.7 L Albumin 2.2 L Albumin/Globulin Ratio Urine Appearance Urine Protein Urine Ketones Urine Blood Ur Leukocyte Esterase Urine RBC Urine WBC Amorphous Sediment Urine Bacteria Urine Mucus Urine Yeast (Budding) 03/05/23 03/05/23 03/05/23 09:09 10:11 10:11 WBC 12.3 H RBC 1.77 L Hgb 6.2 L* D Hct 19.9 L* MCV 112.6 H MCH MCHC RDW 16.6 H Plt Count 66 L D Neutrophils # 10.7 H Lymphocytes # 0.4 L Monocytes # Eosinophils # Macrocytosis Marked A ESR PT INR D-Dimer ABG pO2 ABG Total CO2 ABG O2 Saturation Sodium Potassium 3.0 L Carbon Dioxide 21 L Anion Gap BUN 28 H Creatinine 3.11 H Est GFR (CKD-EPI) Glucose 105 H POC Glucose (mg/dL) 184 H Calcium 7.8 L TIBC Transferrin Ferritin AST Ammonia C-Reactive Protein Total Protein Albumin Albumin/Globulin Ratio Urine Appearance Urine Protein Urine Ketones Urine Blood Ur Leukocyte Esterase Urine RBC Urine WBC Amorphous Sediment Urine Bacteria Urine Mucus Urine Yeast (Budding) 03/05/23 03/05/23 10:11 10:12 WBC RBC Hgb Hct MCV MCH MCHC RDW Plt Count Neutrophils # Lymphocytes # Monocytes # Eosinophils # Macrocytosis ESR PT INR D-Dimer 20.54 H ABG pO2 383 H ABG Total CO2 26 H ABG O2 Saturation 100.0 H Sodium Potassium Carbon Dioxide Anion Gap BUN Creatinine Est GFR (CKD-EPI) Glucose POC Glucose (mg/dL) Calcium TIBC Transferrin Ferritin AST Ammonia C-Reactive Protein Total Protein Albumin Albumin/Globulin Ratio Urine Appearance Urine Protein Urine Ketones Urine Blood Ur Leukocyte Esterase Urine RBC Urine WBC Amorphous Sediment Urine Bacteria Urine Mucus Urine Yeast (Budding) - Diagnostic Findings Chest x-ray: image reviewed (As noted in HPI) Assessment and Plan Assessment: Impression: Cardiac arrest status post CPR Acute hypoxic respiratory failure secondary to cardiac arrest requiring i ntubation and mechanical ventilation Acute kidney injury secondary to ATN and hepatorenal syndrome History of alcohol-induced liver cirrhosis Hepatorenal syndrome Fluid overload requiring paracentesis with 2.5 L drained on 02/2023 Chronic left lower extremity cellulitis, on antibiotics Chronic anemia, on Aranesp. Elevated d-dimer, we will check venous Doppler of lower extremities, and address accordingly Acute metabolic encephalopathy Ascites requiring paracentesis with volume overload, secondary to syndrome Recommendation: Continue ventilatory support Transfuse patient for a hemoglobin of 6.2 Continue antibiotics as per infectious disease on the case Consider norepinephrine if the patient develops hypotension Continue nutritional support GI and DVT prophylaxis Check venous Doppler of lower extremities and address accordingly May even have to consider a VQ scan on this patient considering her elevated d- dimer Patient is critically ill Critical care time is over 55 minutes, not including the time spent on procedures. We will continue to follow. Time with Patient: Greater than 30
--- NOTE | 2023-03-05 13:10 | US ---
EXAMINATION TYPE: US venous doppler duplex LE BI DATE OF EXAM: 03/05/2023 1:02 PM COMPARISON: Prev left leg CLINICAL INDICATION: Female, 67 years old with history of High d dimer, edema; Edema, elevated D-dime r SIDE PERFORMED: Bilateral TECHNIQUE: The lower extremity deep venous system is examined utilizing real time linear array sonog joaquin with graded compression, doppler sonography and color-flow sonography. VESSELS IMAGED: Common Femoral Vein Deep Femoral Vein Greater Saphenous Vein * Femoral Vein Popliteal Vein Small Saphenous Vein * Proximal Calf Veins (* superficial vessels) Vented pt in ICU Right Leg: Only popliteal veins visualized at appear negative for DVT/ Right groin veins not visuali zed due to arterial line, right femoral veins not visualized due to extreme edema Left Leg: Visualized portions appear negative for DVT, left femoral veins not visualized due to extr abdon edema/ left popliteal compressions not obtained due to pt position IMPRESSION: Limited exam as described above. No DVT definitively visualized.
[2023-03-05 13:46] LABS: Anisocytosis Slight; HCT 25.9 % (34.0-46.0); Hypochromasia Marked; MCH 35.1 pg (25.0-35.0); MCHC 31.7 g/dL (31.0-37.0); MCV 110.9 fL (80.0-100.0); Macrocytosis Marked; Mean Platelet Volume 11.2; RBC 2.33 m/uL (3.80-5.40); RDW 16.4 % (11.5-15.5); WBC 16.2 k/uL (3.8-10.6)
[2023-03-05 13:52] LABS: HGB 8.2 gm/dL (11.4-16.0)
[2023-03-05 13:53] LABS: Platelet Count 94 k/uL (150-450)
--- NOTE | 2023-03-05 15:31 | P.PN ---
Subjective Progress Note Date: 03/04/23 Principal diagnosis: Left foot wound and left leg cellulitis Patient is a 67-year-old female with a past medical history significant for cirrhosis of the liver, smoking, renal insufficiency who was recently admitted at this facility with the diffuse swelling to bilateral lower extremity patient also have a wound on the plantar aspect of the left foot which was debrided and culture subsequently came back positive with Pseudomonas aeruginosa MSSA and Enterococcus faecalis [facility] with [facility]line and IV daptomycin and cefepime pending the patient was not able to get her antibiotics and has been sent to the hospital for the worsening cellulitis. Patient did get dialysis catheter and started on dialysis as of 03/01/2023 On today's evaluation that is 03/04/2023, the patient denies any fever or any chills, the patient is breathing comfortably on room air and no need for supplemental oxygen, patient denies abdominal pain and no nausea/vomiting /diarrhea,the patient denies chest pain or cough, and denies pain in his left lower extremity Patient white count normalized to 5.87, blood cultures negative Objective - Vital Signs Vital signs: Vital Signs Temp 97.4 F L 03/04/23 07:25 Pulse 91 03/04/23 07:25 Resp 20 03/04/23 07:25 BP 112/73 03/04/23 07:25 Pulse Ox 99 03/04/23 07:25 FiO2 Intake & Output 03/03/23 03/04/23 03/04/23 18:59 06:59 18:59 Other: Voiding Method Indwelling Catheter Indwelling Catheter Indwelling Catheter # Voids 1 # Bowel Movements 0 1 - Exam GENERAL DESCRIPTION: An elderly female lying in bed in no distress RESPIRATORY SYSTEM: Unlabored breathing , decreased breath sounds at bases HEART: S1 S2 regular rate and rhythm , ABDOMEN: Soft , no tenderness EXTREMITIES: Left lower extremity swelling and redness has decreased - Labs CBC & Chem 7: 03/05/23 11:47 03/05/23 11:47 Labs: Abnormal Lab Results - Last 24 Hours (Table) 03/04/23 03/04/23 Range/Units 09: Sodium 136 L (137-145) mmol/L Potassium 3.2 L (3.5-5.1) mmol/L BUN 37 H (7-17) mg/dL Creatinine 3.65 H (0.52-1.04) mg/dL Calcium 7.8 L (8.4-10.2) mg/dL AST 41 H (14-36) U/L Ammonia 32 H (<30) umol/L Total Protein 5.7 L (6.3-8.2) g/dL Albumin 2.2 L (3.5-5.0) g/dL Assessment and Plan (1) Failure of outpatient treatment Current Visit: Yes Status: Acute Code(s): Z78.9 - OTHER SPECIFIED HEALTH STATUS SNOMED Code(s): 721481531 (2) Left leg cellulitis Current Visit: No Status: Acute Code(s): L03.116 - CELLULITIS OF LEFT LOWER LIMB SNOMED Code(s): 23024844814587631 Plan: 1patient was in the hospital with worsening cellulitis to left lower extremity with recent culture positive for MSSA Enterococcus and Pseudomonas apparently the patient was unable to get antibiotic as prescribed on her last admission could be the likely reason for worsening of her left lower extremity cellulitis 2-patient also have a wound on the dorsum aspect of the left foot with slough tissue but no significant cellulitis and CT did not show any evidence of abscess 3-local wound care to the left foot wound with the Medihoney followed by moist dressing to be changed daily we also recommend Francisco wrap to the leg to keep the swelling down 4patient remains to be afebrile the patient white count has normalized, patient to continue with Zosyn, the patient niece who is the power of district attorney at the bedside questions concerned were answered Dictation was produced using [employer] dictation software. please excuse any grammatical, word or spelling errors. Time with Patient: Less than 30
--- NOTE | 2023-03-05 15:36 | P.PN ---
Subjective Progress Note Date: 03/05/23 Principal diagnosis: Left foot wound and left leg cellulitis Patient is a 67-year-old female with a past medical history significant for cirrhosis of the liver, smoking, renal insufficiency who was recently admitted at this facility with the diffuse swelling to bilateral lower extremity patient also have a wound on the plantar aspect of the left foot which was debrided and culture subsequently came back positive with Pseudomonas aeruginosa MSSA and Enterococcus faecalis patient was discharged to the senior care with the midline and IV daptomycin and cefepime pending the patient was not able to get her antibiotics and has been sent to the hospital for the worsening cellulitis. Patient did get dialysis catheter and started on dialysis as of 03/01/2023, patient did have a cardiac arrest while undergoing dialysis on the morning of 03/05/2023 patient currently still sedated intubated and transferred to the ICU On today's evaluation that is 03/05/2023, the patient remains to be afebrile, the patient is currently on the vent 100% FiO2, patient is hemodynamically stable not requiring any pressor support no other changes reported by nursing staff Patient white count is up to 16.2 today, creatinine is 3.11 Objective - Vital Signs Vital signs: Vital Signs Temp 98 F 03/05/23 01:49 Pulse 93 03/05/23 01:49 Resp 18 03/05/23 01:49 BP 95/62 03/05/23 01:49 Pulse Ox 98 03/05/23 01:49 FiO2 50 03/05/23 10:16 Intake & Output 03/04/23 03/05/23 03/05/23 18:59 06:59 18:59 Intake Total 420 Output Total 2049 Balance -1630 Weight 90.718 kg Intake: Oral 120 Hemodialysis 300 Output: Urine 50 Hemodialysis 1999 Other: Voiding Method Indwelling Catheter Indwelling Catheter # Voids 1 # Bowel Movements 1 1 - Exam GENERAL DESCRIPTION: An elderly female intubated on the vent RESPIRATORY SYSTEM: Unlabored breathing , decreased breath sounds at bases HEART: S1 S2 regular rate and rhythm , ABDOMEN: Soft , no tenderness EXTREMITIES: Left lower extremity swelling and redness has decreased - Labs CBC & Chem 7: 03/05/23 11:47 03/05/23 11:47 Labs: Abnormal Lab Results - Last 24 Hours (Table) 03/04/23 03/05/23 03/05/23 Range/Units 09:23 08:51 09:09 WBC (3.8-10.6) k/uL RBC 2.52 L (4.10-5.20) X 10*6/uL Hgb 8.6 L (12.0-15.0) d/dL Hct 27.1 L (37.2-46.3) % MCV 107.5 H (80.0-97.0) FL MCH 34.1 H (27.0-32.0) pg MCHC 31.7 L (32.0-37.0) d/dL RDW 16.5 H (11.5-14.5) % Plt Count 98 L (140-440) X 10*3/uL Neutrophils # (1.3-7.7) k/uL Lymphocytes # (1.0-4.8) k/uL Macrocytosis D-Dimer (<0.60) mg/L FEU ABG pO2 (83-108) mmHg ABG Total CO2 (19-24) mmol/L ABG O2 Saturation (94-97) % Potassium (3.5-5.1) mmol/L Carbon Dioxide (22-30) mmol/L BUN (7-17) mg/dL Creatinine (0.52-1.04) mg/dL Glucose (74-99) mg/dL POC Glucose (mg/dL) 125 H 184 H (70-110) mg/dL Calcium (8.4-10.2) mg/dL 03/05/23 03/05/23 03/05/23 Range/Units 10:11 10:11 10:11 WBC 12.3 H (3.8-10.6) k/uL RBC 1.77 L (4.10-5.20) X 10*6/uL Hgb 6.2 L* D (12.0-15.0) d/dL Hct 19.9 L* (37.2-46.3) % MCV 112.6 H (80.0-97.0) FL MCH (27.0-32.0) pg MCHC (32.0-37.0) d/dL RDW 16.6 H (11.5-14.5) % Plt Count 66 L D (140-440) X 10*3/uL Neutrophils # 10.7 H (1.3-7.7) k/uL Lymphocytes # 0.4 L (1.0-4.8) k/uL Macrocytosis Marked A D-Dimer 20.54 H (<0.60) mg/L FEU ABG pO2 (83-108) mmHg ABG Total CO2 (19-24) mmol/L ABG O2 Saturation (94-97) % Potassium 3.0 L (3.5-5.1) mmol/L Carbon Dioxide 21 L (22-30) mmol/L BUN 28 H (7-17) mg/dL Creatinine 3.11 H (0.52-1.04) mg/dL Glucose 105 H (74-99) mg/dL POC Glucose (mg/dL) (70-110) mg/dL Calcium 7.8 L (8.4-10.2) mg/dL 03/05/23 Range/Units 10:12 WBC (3.8-10.6) k/uL RBC (4.10-5.20) X 10*6/uL Hgb (12.0-15.0) d/dL Hct (37.2-46.3) % MCV (80.0-97.0) FL MCH (27.0-32.0) pg MCHC (32.0-37.0) d/dL RDW (11.5-14.5) % Plt Count (140-440) X 10*3/uL Neutrophils # (1.3-7.7) k/uL Lymphocytes # (1.0-4.8) k/uL Macrocytosis D-Dimer (<0.60) mg/L FEU ABG pO2 383 H (83-108) mmHg ABG Total CO2 26 H (19-24) mmol/L ABG O2 Saturation 100.0 H (94-97) % Potassium (3.5-5.1) mmol/L Carbon Dioxide (22-30) mmol/L BUN (7-17) mg/dL Creatinine (0.52-1.04) mg/dL Glucose (74-99) mg/dL POC Glucose (mg/dL) (70-110) mg/dL Calcium (8.4-10.2) mg/dL Assessment and Plan (1) Failure of outpatient treatment Current Visit: Yes Status: Acute Code(s): Z78.9 - OTHER SPECIFIED HEALTH STATUS SNOMED Code(s): 941013394 (2) Left leg cellulitis Current Visit: No Status: Acute Code(s): L03.116 - CELLULITIS OF LEFT LOWER LIMB SNOMED Code(s): 45862092043648440 Plan: 1patient was in the hospital with worsening cellulitis to left lower extremity with recent culture positive for MSSA Enterococcus and Pseudomonas apparently the patient was unable to get antibiotic as prescribed on her last admission could be the likely reason for worsening of her left lower extremity cellulitis 2-patient also have a wound on the dorsum aspect of the left foot with slough tissue but no significant cellulitis and CT did not show any evidence of abscess 3-local wound care to the left foot wound with the Medihoney followed by moist dressing to be changed daily we also recommend Francisco wrap to the leg to keep the swelling down 4patient did have acute worsening of condition requiring intubation we will repeat her cultures including blood and sputum continue with the Zosyn the patient niece who is the power of assistant attorney general at the bedside questions concerned were answered Dictation was produced using [employer] dictation software. please excuse any grammatical, word or spelling errors. Time with Patient: Less than 30
[2023-03-05] MEDS ORDERED: POTASSIUM BICARBONATE/CIT AC 20 MEQ TABLET.EFF PO ONE (16:00)
--- NOTE | 2023-03-05 16:57 | P.PN ---
Progress Note - Text Progress Note Date: 03/05/23 Code called overhead 8:46. Patient found to be bradycardic while on dialysis. Was unresponsive. Epi 1. Bicarbonate and calcium given once. ROSC at 8:50, intubated at 8:53. Patient being transferred to ICU. Labs to be done. Primary team at bedside. Family aware.
[2023-03-05 17:53] LABS: Glucose,Whole Blood 111 mg/dL (70-110)
[2023-03-05] MEDS: HEPARIN SODIUM,PORCINE 5,000 UNIT/ML 1 ML VIAL SQ SCH (20:35)
[2023-03-06 00:13] LABS: Glucose,Whole Blood 125 mg/dL (70-110)
[2023-03-06] MEDS: fentaNYL (PF). 1,000 MCG in SODIUM CHLORIDE 0.9% 80 ML IV SCH (04:00)
[2023-03-06] MEDS: NOREPINEPHRINE 4 MG in SODIUM CHLORIDE 0.9% 250 ML IV SCH ×4 (05:08→18:57)
[2023-03-06 05:09] LABS: Glucose,Whole Blood 108 mg/dL (70-110)
[2023-03-06 05:24] LABS: Anisocytosis Slight; Basophils # (A) 0.1 k/uL (0-0.2); Basophils % (A) 0 %; Eosinophils # (A) 1.2 k/uL (0-0.7); Eosinophils % (A) 9 %; HCT 29.1 % (34.0-46.0); HGB 9.1 gm/dL (11.4-16.0); Hypochromasia Marked; Lymphocytes # (A) 1.3 k/uL (1.0-4.8); Lymphocytes % (A) 10 %; MCH 34.7 pg (25.0-35.0); MCHC 31.5 g/dL (31.0-37.0); MCV 110.5 fL (80.0-100.0); Mean Platelet Volume 10.6; Monocytes # (A) 0.7 k/uL (0-1.0); Monocytes % (A) 5 %; Neutrophils # (A) 9.6 k/uL (1.3-7.7); Neutrophils % (A) 74 %; Platelet Count 114 k/uL (150-450); RBC 2.63 m/uL (3.80-5.40); RDW 16.4 % (11.5-15.5)
[2023-03-06 05:33] LABS: African American GFR (CKD) 12 (>60 ml/min/1.73 sqM); Anion Gap 8 mmol/L; Blood Urea Nitrogen 30 mg/dL (7-17); Carbon Dioxide 23 mmol/L (22-30); Chloride 104 mmol/L (98-107); Glucose 99 mg/dL (74-99); Magnesium 1.7 mg/dL (1.6-2.3); Non-African American GFR(CKD) 11 (>60 ml/min/1.73 sqM); Potassium 3.6 mmol/L (3.5-5.1); Sodium 135 mmol/L (137-145)
[2023-03-06 05:51] LABS: ABG Base Excess 0.3 mmol/L; ABG HCO3 25 mmol/L (21-25); ABG Oxygen Saturation 98.5 % (94-97); ABG PCO2 37 mmHg (35-45); ABG PH 7.43 (7.35-7.45); ABG PO2 107 mmHg (83-108); ABG TCO2 26 mmol/L (19-24); Allen Test Performed? Yes
[2023-03-06 06:00] LABS: Macrocytosis Marked
[2023-03-06] MEDS ORDERED: POTASSIUM BICARBONATE/CIT AC 20 MEQ TABLET.EFF PO ONE (06:59)
--- NOTE | 2023-03-06 08:28 | XR ---
EXAMINATION TYPE: XR chest 1V portable DATE OF EXAM: 03/06/2023 COMPARISON: 03/05/2023 HISTORY: Line placement TECHNIQUE: Single frontal view of the chest is obtained. FINDINGS: Limited inspiration with bilateral areas of subsegmental consolidation favor atelectasis. Pneumonia at the left lung base not excluded ET and NG tubes stable. Central line has been pulled ashwini k with the tip at the level of the SVC. No sizable pneumothorax. IMPRESSION: 1. Bilateral areas of consolidation or atelectasis stable.
[2023-03-06] MEDS: LACTULOSE 20 GM/30 ML CUP PO SCH ×3 (09:35→21:05)
[2023-03-06] MEDS: FOLIC ACID 1 MG TAB PO SCH (09:35)
[2023-03-06] MEDS: PANTOPRAZOLE 40 MG/10 ML VIAL IV SCH (09:35)
[2023-03-06] MEDS: MIDODRINE 5 MG TAB PO SCH ×3 (09:35→17:36)
[2023-03-06] MEDS: CHLORHEXIDINE GLUCONATE 15 ML CUP MUCOUS MEM SCH ×2 (09:35→20:48)
[2023-03-06] MEDS: HEPARIN SODIUM,PORCINE 5,000 UNIT/ML 1 ML VIAL SQ SCH ×2 (09:36→20:48)
[2023-03-06] MEDS: PIPERACILLIN-TAZOBACTAM 3.375 GM in SODIUM CHLORIDE 0.9% 100 ML IVPB SCH ×2 (09:36→20:48)
[2023-03-06] MEDS: THIAMINE 100 MG TAB PO SCH (09:36)
[2023-03-06] MEDS: MAGNESIUM SULFATE-D5W PMX 1 GM in DEXTROSE/WATER 1 100ML.BAG IVPB SCH ×2 (09:37→11:09)
--- NOTE | 2023-03-06 11:28 | P.PN ---
Subjective Progress Note Date: 03/06/23 Principal diagnosis: Cardiac arrest This is a 67-year-old female with history of multiple medical problems including chronic cellulitis of the left lower extremity, liver cirrhosis, hepatorenal syndrome, patient was treated on outpatient basis at the [facility] facility for her cellulitis and she was receiving antibiotics in the form of cefepime and daptomycin. However the patient was not making any improvement, and infectious disease recommended breaking the patient to the hospital and she was admitted on 02/25/2023 for IV antibiotics of her cellulitis. Since her admission until today the patient was seen by many consultants including internal medicine, infectious disease, vascular surgery, her condition was getting worse, and on 03/01/2023, patient had a right femoral dialysis catheter placed. And the patient has been on hemodialysis. Today, shortly after the patient started on dialysis, patient went into cardiac arrest, and [facility] was called. Patient had CPR for less than 5 minutes, she was intubated, and transferred to the ICU. Hence I was asked to see the patient on consultation. When the patient arrived to the ER, her blood pressure was noted to be marginal, and I went ahead and placed a right radial arterial line and a right subclavian triple-lumen catheter. Patient is now on assist control mode of mechanical ventilation, tidal volume of 400, rate of 14, FiO2 on the percent and PEEP of 5. ABG showed a pO2 of 383 pCO2 39 pH of 7.41. CBC showed a hemoglobin of 6.2, her hemoglobin yesterday was 8.6. D- dimer is significantly elevated at 20.54, hence a venous Doppler will be ordered stat, and decide whether the patient needs to be on heparin. BUN is 28 creatinine 3.11. Chest x-ray upon admission to the ICU showed no evidence of a cute pulmonary process Patient was reevaluated today on 03/06/2023, she remains in the ICU, intubated and mechanically ventilated. Patient is still quite sick, and critically ill. She is on assist control rate of 16 Dilaudid 400 FiO2 40% and PEEP of 5. Her ABG showed a pO2 of 107 pCO2 37 pH of 7.43, hence no ventilator changes were made. Patient is still requiring multiple drips including propofol 50 mcg/m fentanyl 0.5 mcg/kg/h norepinephrine at 0.02 mcg/kg/m and her IV fluids at KVO. WBC count is 13 hemoglobin 9.1 platelets are 114, basic metabolic profile is normal BUN is 30 and creatinine 4.02. Patient may end up getting hemodialysis today. Patient remains on Zosyn. And this is ordered by infectious disease on the case. Patient is sedated, however I plan to assess her mental status today by giving her a sedation interruption or sedation holiday. But at this point she is still not quite ready for weaning. Venous Doppler is negative for DVT, chest x-ray today showed bilateral/bibasilar atelectasis Objective - Vital Signs Vital signs: Vital Signs Temp 97.5 F L 03/06/23 08:00 Pulse 53 L 03/06/23 09:15 Resp 16 03/06/23 09:15 BP 87/56 03/06/23 09:15 Pulse Ox 99 03/06/23 09:15 FiO2 40 03/06/23 10:30 Intake & Output 03/05/23 03/06/23 03/06/23 18:59 06:59 18:59 Intake Total 1365.442 771.515 120.905 Output Total 100 0 Balance 1265.442 771.515 120.905 Weight 104.6 kg Intake: IV 1160 340 20 Piperacillin-Tazobactam 3 100 .375 gm In Sodium Chloride 0.9% 100 ml @ 25 mls/hr IVPB Q12HR [facility] Rx #:[id number] Sodium Chloride 0.9% 1, 160 240 20 000 ml @ 20 mls/hr IV . Q24H [facility] Rx#:[id number] Sodium Chloride 0.9% 1, 1000 000 ml @ 999 mls/hr IV . Q1H1M [facility] Rx#:[id number] Intake, IV Titration 205.442 431.515 100.905 Amount Norepinephrine 4 mg In 2.822 256.520 29.783 Sodium Chloride 0.9% 250 ml @ 0.03 MCG/KG/MIN 10. 369 mls/hr IV .Q24H [facility] Rx#:[id number] fentaNYL (PF). 1,000 mcg 74.995 In Sodium Chloride 0.9% 80 ml @ 0.5 MCG/KG/HR 4. 536 mls/hr IV .Q22H3M [facility] Rx#:[id number] propofoL 1,000 mg In 202.620 100.000 71.122 Empty Bag 1 bag @ 15 MCG/ KG/MIN 8.165 mls/hr IV . [id number] [facility] Rx#:[id number] Output: Urine 100 0 Other: Voiding Method Indwelling Catheter Indwelling Catheter ABP, PAP, CO, CI - Last Documented Arterial Blood Pressure 127/60 - Exam Physical Exam: Revealed a 67-year-old female, frail looking, chronically ill- looking, intubated mechanically ventilated and sedated. Head: Atraumatic, normocephalic, endotracheal tube and orogastric tubes are intact. HEENT:[ Pupils are dilated but reactive to light. Neck is supple.] [No neck masses.] [No thyromegaly.] [No JVD.] Chest: [Symmetrical chest expansion, clear bilaterally no crackles or rhonchi or wheezes Cardiac Exam: Distant S1 and S2, no S3 gallop, 2/6 systolic murmur throughout the precordium.] Abdomen: [Soft, nontender, no megaly, no rebound, no guarding, normal bowel sounds.] Extremities: 2+ bipedal edema with chronic skin changes, left lower extremity is wrapped with a sterile dressing, patient has chronic cellulitis of the left lower extremity noted. Diminished distal pulses. Neurological Exam: Unable to assess patient is sedated, on propofol, Psychiatric: Could not assess. Mostly because of sedation Skin: Evidence of chronic cellulitis of left lower extremity , wrapped with sterile dressing. And Francisco wrap - Labs CBC & Chem 7: 03/06/23 05:10 03/06/23 05:10 Labs: Abnormal Lab Results - Last 24 Hours (Table) 03/05/23 03/05/23 03/05/23 Range/Units 11:47 11:47 11:47 WBC 16.2 H (3.8-10.6) k/uL RBC 2.33 L (3.80-5.40) m/uL Hgb 8.2 L D (11.4-16.0) gm/dL Hct 25.9 L (34.0-46.0) % MCV 110.9 H (80.0-100.0) fL MCH 35.1 H (25.0-35.0) pg RDW 16.4 H (11.5-15.5) % Plt Count 94 L (150-450) k/uL Neutrophils # (1.3-7.7) k/uL Eosinophils # (0-0.7) k/uL Macrocytosis Marked A ABG Total CO2 (19-24) mmol/L ABG O2 Saturation (94-97) % Sodium (137-145) mmol/L Potassium 3.3 L (3.5-5.1) mmol/L BUN (7-17) mg/dL Creatinine (0.52-1.04) mg/dL POC Glucose (mg/dL) (70-110) mg/dL Calcium (8.4-10.2) mg/dL C-Reactive Protein 4.5 H (<1.0) mg/dL Procalcitonin (0.02-0.09) ng/mL 03/05/23 03/05/23 03/06/23 Range/Units 15:36 17:51 00:11 WBC (3.8-10.6) k/uL RBC (3.80-5.40) m/uL Hgb (11.4-16.0) gm/dL Hct (34.0-46.0) % MCV (80.0-100.0) fL MCH (25.0-35.0) pg RDW (11.5-15.5) % Plt Count (150-450) k/uL Neutrophils # (1.3-7.7) k/uL Eosinophils # (0-0.7) k/uL Macrocytosis ABG Total CO2 (19-24) mmol/L ABG O2 Saturation (94-97) % Sodium (137-145) mmol/L Potassium (3.5-5.1) mmol/L BUN (7-17) mg/dL Creatinine (0.52-1.04) mg/dL POC Glucose (mg/dL) 111 H 125 H (70-110) mg/dL Calcium (8.4-10.2) mg/dL C-Reactive Protein (<1.0) mg/dL Procalcitonin 1.47 H (0.02-0.09) ng/mL 03/06/23 03/06/23 03/06/23 Range/Units 05:10 05:10 05:48 WBC 13.0 H (3.8-10.6) k/uL RBC 2.63 L (3.80-5.40) m/uL Hgb 9.1 L (11.4-16.0) gm/dL Hct 29.1 L (34.0-46.0) % MCV 110.5 H (80.0-100.0) fL MCH (25.0-35.0) pg RDW 16.4 H (11.5-15.5) % Plt Count 114 L (150-450) k/uL Neutrophils # 9.6 H (1.3-7.7) k/uL Eosinophils # 1.2 H (0-0.7) k/uL Macrocytosis Marked A ABG Total CO2 26 H (19-24) mmol/L ABG O2 Saturation 98.5 H (94-97) % Sodium 135 L (137-145) mmol/L Potassium (3.5-5.1) mmol/L BUN 30 H (7-17) mg/dL Creatinine 4.02 H (0.52-1.04) mg/dL POC Glucose (mg/dL) (70-110) mg/dL Calcium 8.0 L (8.4-10.2) mg/dL C-Reactive Protein (<1.0) mg/dL Procalcitonin (0.02-0.09) ng/mL Assessment and Plan Assessment: Impression: Cardiac arrest status post CPR Acute hypoxic respiratory failure secondary to cardiac arrest requiring intubation and mechanical ventilation Acute kidney injury secondary to ATN and hepatorenal syndrome History of alcohol-induced liver cirrhosis Hepatorenal syndrome Fluid overload requiring paracentesis with 2.5 L drained recently. Chronic left lower extremity cellulitis, on antibiotics Chronic anemia, on Aranesp. Elevated d-dimer, negative Dopplers of lower extremities. Acute metabolic encephalopathy Ascites requiring paracentesis with volume overload, secondary to hepatorenal s yndrome hypotension requiring low-dose of norepinephrine, possibly cardiogenic in nature doubt septic shock, patient probably is intravascularly depleted causing hypotension./Intravascular hypovolemia Recommendation: Hold sedation today and assess mental status mostly otherwise Continue ventilatory support Continue Zosyn empirically Continue hemodynamic support, check echocardiogram assess LV function Continue nutritional support GI and DVT prophylaxis Patient is critically ill Critical care time is over 35 min We will continue to follow. Time with Patient: Greater than 30
[2023-03-06] MEDS: SODIUM CHLORIDE 0.9% 1,000 ML IV SCH (11:42)
--- NOTE | 2023-03-06 12:04 | P.PN ---
Subjective Patient is seen for follow-up for acute kidney injury. Patient is seen in the ICU. She is currently on the vent. Patient is seen on hemodialysis. Blood pressure had initially dropped to systolic in the 40s. UF has been decreased and blood flows have been adjusted. Patient had multiple ectopies and the K bath has been changed to 4K. Patient seems to be tolerating dialysis at her. Next She remains on levo fed which is now increased to 0.27 g. FiO2 at 40%. Objective - Vital Signs Vital signs: Vital Signs Temp 97.5 F L 03/06/23 08:00 Pulse 104 H 03/06/23 11:45 Resp 13 03/06/23 11:45 BP 98/71 03/06/23 11:45 Pulse Ox 93 L 03/06/23 11:45 FiO2 40 03/06/23 10:30 Intake & Output 03/05/23 03/06/23 03/06/23 18:59 06:59 18:59 Intake Total 1365.442 771.515 336.222 Output Total 100 0 12 Balance 1265.442 771.515 324.222 Weight 104.6 kg Intake: IV 1160 340 100 Piperacillin-Tazobactam 3 100 .375 gm In Sodium Chloride 0.9% 100 ml @ 25 mls/hr IVPB Q12HR [facility] Rx #:[id number] Sodium Chloride 0.9% 1, 160 240 100 000 ml @ 20 mls/hr IV . Q24H [facility] Rx#:[id number] Sodium Chloride 0.9% 1, 1000 000 ml @ 999 mls/hr IV . Q1H1M [facility] Rx#:[id number] Intake, IV Titration 205.442 431.515 236.222 Amount Norepinephrine 4 mg In 2.822 256.520 165.100 Sodium Chloride 0.9% 250 ml @ 0.03 MCG/KG/MIN 10. 369 mls/hr IV .Q24H [facility] Rx#:[id number] fentaNYL (PF). 1,000 mcg 74.995 In Sodium Chloride 0.9% 80 ml @ 0.5 MCG/KG/HR 4. 536 mls/hr IV .Q22H3M [facility] Rx#:[id number] propofoL 1,000 mg In 202.620 100.000 71.122 Empty Bag 1 bag @ 15 MCG/ KG/MIN 8.165 mls/hr IV . [id number] [facility] Rx#:[id number] Output: Urine 100 0 12 Other: Voiding Method Indwelling Catheter Indwelling Catheter ABP, PAP, CO, CI - Last Documented Arterial Blood Pressure 128/58 - Exam Patient is sedated and on the vent HEENT atraumatic normocephalic Examination of the heart S1 and S2 Examination lungs bilateral breath sounds are heard abdomen is soft with ventral hernia. Examination lower extremities shows edema 2+ bilaterally with chronic skin c hanges - Labs CBC & Chem 7: 03/06/23 05:10 03/06/23 05:10 Labs: Abnormal Lab Results - Last 24 Hours (Table) 03/05/23 03/05/23 03/05/23 Range/Units 11:47 11:47 11:47 WBC 16.2 H (3.8-10.6) k/uL RBC 2.33 L (3.80-5.40) m/uL Hgb 8.2 L D (11.4-16.0) gm/dL Hct 25.9 L (34.0-46.0) % MCV 110.9 H (80.0-100.0) fL MCH 35.1 H (25.0-35.0) pg RDW 16.4 H (11.5-15.5) % Plt Count 94 L (150-450) k/uL Neutrophils # (1.3-7.7) k/uL Eosinophils # (0-0.7) k/uL Macrocytosis Marked A ABG Total CO2 (19-24) mmol/L ABG O2 Saturation (94-97) % Sodium (137-145) mmol/L Potassium 3.3 L (3.5-5.1) mmol/L BUN (7-17) mg/dL Creatinine (0.52-1.04) mg/dL POC Glucose (mg/dL) (70-110) mg/dL Calcium (8.4-10.2) mg/dL C-Reactive Protein 4.5 H (<1.0) mg/dL Procalcitonin (0.02-0.09) ng/mL 03/05/23 03/05/23 03/06/23 Range/Units 15:36 17:51 00:11 WBC (3.8-10.6) k/uL RBC (3.80-5.40) m/uL Hgb (11.4-16.0) gm/dL Hct (34.0-46.0) % MCV (80.0-100.0) fL MCH (25.0-35.0) pg RDW (11.5-15.5) % Plt Count (150-450) k/uL Neutrophils # (1.3-7.7) k/uL Eosinophils # (0-0.7) k/uL Macrocytosis ABG Total CO2 (19-24) mmol/L ABG O2 Saturation (94-97) % Sodium (137-145) mmol/L Potassium (3.5-5.1) mmol/L BUN (7-17) mg/dL Creatinine (0.52-1.04) mg/dL POC Glucose (mg/dL) 111 H 125 H (70-110) mg/dL Calcium (8.4-10.2) mg/dL C-Reactive Protein (<1.0) mg/dL Procalcitonin 1.47 H (0.02-0.09) ng/mL 03/06/23 03/06/23 03/06/23 Range/Units 05:10 05:10 05:48 WBC 13.0 H (3.8-10.6) k/uL RBC 2.63 L (3.80-5.40) m/uL Hgb 9.1 L (11.4-16.0) gm/dL Hct 29.1 L (34.0-46.0) % MCV 110.5 H (80.0-100.0) fL MCH (25.0-35.0) pg RDW 16.4 H (11.5-15.5) % Plt Count 114 L (150-450) k/uL Neutrophils # 9.6 H (1.3-7.7) k/uL Eosinophils # 1.2 H (0-0.7) k/uL Macrocytosis Marked A ABG Total CO2 26 H (19-24) mmol/L ABG O2 Saturation 98.5 H (94-97) % Sodium 135 L (137-145) mmol/L Potassium (3.5-5.1) mmol/L BUN 30 H (7-17) mg/dL Creatinine 4.02 H (0.52-1.04) mg/dL POC Glucose (mg/dL) (70-110) mg/dL Calcium 8.0 L (8.4-10.2) mg/dL C-Reactive Protein (<1.0) mg/dL Procalcitonin (0.02-0.09) ng/mL Assessment and Plan Assessment: 1. Acute kidney injury secondary to ATN secondary to hepatorenal syndrome. No hydronephrosis noted on CAT scan done December 2022. Oliguric. Creatinine near and January 2023. Started on hemodialysis 03/01/2023. Has a temporary dialysis catheter. 2. Alcohol-induced liver cirrhosis. 3. Volume overload. Status post paracentesis. 2.5 L drained 02/27/2023. 4. Left lower extremity cellulitis on antibiotics. 5. Anemia. Iron replete. On Aranesp. 6. Status post cardiac arrest, currently on the vent. Check troponin. Recheck potassium as the blood was drawn during treatment and will be inaccurate 7. Hypokalemia currently being replaced Plan: Replace potassium Repeat hemodialysis in a.m. and increase UF as tolerated.
[2023-03-06 12:14] LABS: Glucose,Whole Blood 110 mg/dL (70-110)
--- NOTE | 2023-03-06 14:18 | P.PN ---
Subjective Progress Note Date: 03/06/23 67-year-old lady with past medical history significant for left lower extremity cellulitis, hepatorenal syndrome, liver cirrhosis, who was at [facility] for treatment of left lower extremity cellulitis. Patient was apparently on IV antibiotics cefepime and daptomycin at the facility for left lower external cellulitis, apparently cellulitis was worsening so the ID recommended transferring patient to the hospital. Patient also developed generalized rash over the weekend which is improved. There was no complain of fever or chills. No shortness of breath or chest pain. patient has been having good appetite. Initial lab work done in the ER showed WBC 10.4, crit of 11.4, platelet count 245, sodium 1:30, potassium 4, BUN 59, creatinine 3.86 CRP 5.2 UA done showed large leukocyte Estrace, urine nitrate negative, WBC 22 Patient was admitted to medicine service 02/27/2023atient is currently lying in bed. Awake alert and oriented. No complaints of chest pain or shortness of breath. Denies any nausea vomiting or abdominal pain. Left lower extremity pain is better with medications. Otherwise patient underwent paracentesis with 2.5 l of fluid removal.Laboratory data showed sodium 138 potassium 3.8 chloride 104 bicarb is 19 BUN 61.6 and creatinine 4.2. Patient is being continued on antibiotics daptomycin and cefepime. 02/28/2023atient was awake and oriented. Able to tolerate oral diet this morning. No complaints of chest pain or shortness of breath. Pain is controlled. Left leg is Francisco wrapped. Patient has been afebrile. No cough or sputum production. No headache or dizziness or lightheadedness. Laboratory data showed WBC 12.4 hemoglobin 8.8 and platelets 250 BUN 63.4 and creatinine remains same at 4.2. Patient is being continued on IV Lasix and Aldactone. Nephrology is on board. Patient is also on midodrine. Dr Melgar Assumed care 03/01/2023: Patient seen and evaluated bedside. Care plan discussed with sister and son at bedside. Patient remains disoriented alert to person continue to fidget Minimal urine output, hemoglobin 8.1 creatinine 4.4 BUN of 64. Nephro logy rounding plan for initiation of hemodialysis. Lastly consulted for vascular access for hemodialysis 03/02/2023: Patient seen and evaluated bedside. Patient is alert however oriented 0, patient is fidgeting, does not follow commands. Patient undergoing hemodialysis. Blood work shows hemoglobin of 8.8 hematocrit of 27 platelet count of 27. WBC 13.50 serum ammonia of 30 CRP of 5.10 03/03/2023: Patient seen and evaluated bedside, patient is drowsy, disoriented. Underwent hemodialysis yesterday we will follow-up on hematology and serum chemistry. Blood pressure 112/76, heart rate stable, afebrile 03/04/23: Patient seen and evaluated bedside, patient is alert however Disoriented second session of dialysis undergone today. Mentation has improved slightly. Continue patient on oral medications as tolerated. Continue IV Zosyn appreciated input from infectious disease. Serum chemistry reviewed. Does have low magnesium 1.7. To be corrected with hemodialysis. Sodium 136 potassium 3 .2. Not medically ready for discharge 03/05/23: Patient was evaluated during CODE BLUE and in ICU. Patient had a brief loss of pulse and was given 1 round of epinephrine. Secondary to encephalopathy patient was intubated. While in ICU. Blood work was obtained which show hemoglobin less than 7. Nephrology following for hemodialysis. Dialysis was stopped secondary to hypotension. During the code. Patient transferred to ICU and family notified. Patient's sister was for notified about the events. Patient prognosis remains guarded. While in ICU patient started on Levophed drip 03/06. Patient seen and examined. Continues to be intubated. Critical care following, planning to give patient's sedation holiday today. Lab work done this morning showed W BC 13, hemoglobin 9.1, platelet count 114 REVIEW OF SYSTEMS: Cannot be obtained as patient is intubated PHYSICAL EXAMINATION: GENERAL: The patient is intubated, not in any acute distress. Well developed, w ell nourished. HEENT: Pupils are round and equally reacting to light. EOMI. No scleral icterus. No conjunctival pallor. Normocephalic, atraumatic. No pharyngeal erythema. No thyromegaly. CARDIOVASCULAR: S1 and S2 present. No murmurs, rubs, or gallops. PULMONARY: Chest is clear to auscultation, no wheezing or crackles. ABDOMEN: Distended, ventral wall hernia seen. No palpable organomegaly. MUSCULOSKELETAL: No joint swelling or deformity. EXTREMITIES: 1+ pitting edema lower extremities bilaterally NEUROLOGICAL: Intubated SKIN: No rashes. Assessment and plan Acute respiratory failure requiring intubation * Septic shock * Acute on chronic anemia * Left lower extremity cellulitis * Acute metabolic encephalopathy * Acute kidney injury secondary to ATN secondary to hepatorenal syndrome. Started hemodialysis * Alcohol-induced liver cirrhosis * Ascites s/p paracentesis with 2.5 L fluid removal on 02/27. * Anemia of chronic kidney disease Monitor vital signs Monitor CBC Monitor CMP Continue telemetry monitoring Continue vent Management per ICU Continue Levophed Continue IV Zosyn Continue midodrine and lactulose Continue dialysis per nephrology Critical care following Labs and medication were reviewed.. Continue same treatment. Continue with symptomatic treatment. Resume home medication. Monitor labs and vitals. DVT and GI prophylaxis. Further recommendations as per clinical course of the patient Dictation was produced using [employer] dictation software. please excuse any grammatical, word or spelling errors. Objective - Vital Signs Vital signs: Vital Signs Temp 97.5 F L 03/06/23 08:00 Pulse 53 L 03/06/23 09:15 Resp 16 03/06/23 09:15 BP 87/56 03/06/23 09:15 Pulse Ox 99 03/06/23 09:15 FiO2 40 03/06/23 10:30 Intake & Output 03/05/23 03/06/23 03/06/23 18:59 06:59 18:59 Intake Total 1365.442 771.515 120.905 Output Total 100 0 Balance 1265.442 771.515 120.905 Weight 104.6 kg Intake: IV 1160 340 20 Piperacillin-Tazobactam 3 100 .375 gm In Sodium Chloride 0.9% 100 ml @ 25 mls/hr IVPB Q12HR [facility] Rx #:[id number] Sodium Chloride 0.9% 1, 160 240 20 000 ml @ 20 mls/hr IV . Q24H [facility] Rx#:[id number] Sodium Chloride 0.9% 1, 1000 000 ml @ 999 mls/hr IV . Q1H1M [facility] Rx#:[id number] Intake, IV Titration 205.442 431.515 100.905 Amount Norepinephrine 4 mg In 2.822 256.520 29.783 Sodium Chloride 0.9% 250 ml @ 0.03 MCG/KG/MIN 10. 369 mls/hr IV .Q24H [facility] Rx#:[id number] fentaNYL (PF). 1,000 mcg 74.995 In Sodium Chloride 0.9% 80 ml @ 0.5 MCG/KG/HR 4. 536 mls/hr IV .Q22H3M [facility] Rx#:[id number] propofoL 1,000 mg In 202.620 100.000 71.122 Empty Bag 1 bag @ 15 MCG/ KG/MIN 8.165 mls/hr IV . [id number] [facility] Rx#:[id number] Output: Urine 100 0 Other: Voiding Method Indwelling Catheter Indwelling Catheter ABP, PAP, CO, CI - Last Documented Arterial Blood Pressure 127/60 - Labs CBC & Chem 7: 03/06/23 05:10 03/06/23 05:10 Labs: Abnormal Lab Results - Last 24 Hours (Table) 03/05/23 03/05/23 03/05/23 Range/Units 11:47 11:47 11:47 WBC 16.2 H (3.8-10.6) k/uL RBC 2.33 L (3.80-5.40) m/uL Hgb 8.2 L D (11.4-16.0) gm/dL Hct 25.9 L (34.0-46.0) % MCV 110.9 H (80.0-100.0) fL MCH 35.1 H (25.0-35.0) pg RDW 16.4 H (11.5-15.5) % Plt Count 94 L (150-450) k/uL Neutrophils # (1.3-7.7) k/uL Eosinophils # (0-0.7) k/uL Macrocytosis Marked A ABG Total CO2 (19-24) mmol/L ABG O2 Saturation (94-97) % Sodium (137-145) mmol/L Potassium 3.3 L (3.5-5.1) mmol/L BUN (7-17) mg/dL Creatinine (0.52-1.04) mg/dL POC Glucose (mg/dL) (70-110) mg/dL Calcium (8.4-10.2) mg/dL C-Reactive Protein 4.5 H (<1.0) mg/dL Procalcitonin (0.02-0.09) ng/mL 03/05/23 03/05/23 03/06/23 Range/Units 15:36 17:51 00:11 WBC (3.8-10.6) k/uL RBC (3.80-5.40) m/uL Hgb (11.4-16.0) gm/dL Hct (34.0-46.0) % MCV (80.0-100.0) fL MCH (25.0-35.0) pg RDW (11.5-15.5) % Plt Count (150-450) k/uL Neutrophils # (1.3-7.7) k/uL Eosinophils # (0-0.7) k/uL Macrocytosis ABG Total CO2 (19-24) mmol/L ABG O2 Saturation (94-97) % Sodium (137-145) mmol/L Potassium (3.5-5.1) mmol/L BUN (7-17) mg/dL Creatinine (0.52-1.04) mg/dL POC Glucose (mg/dL) 111 H 125 H (70-110) mg/dL Calcium (8.4-10.2) mg/dL C-Reactive Protein (<1.0) mg/dL Procalcitonin 1.47 H (0.02-0.09) ng/mL 03/06/23 03/06/23 03/06/23 Range/Units 05:10 05:10 05:48 WBC 13.0 H (3.8-10.6) k/uL RBC 2.63 L (3.80-5.40) m/uL Hgb 9.1 L (11.4-16.0) gm/dL Hct 29.1 L (34.0-46.0) % MCV 110.5 H (80.0-100.0) fL MCH (25.0-35.0) pg RDW 16.4 H (11.5-15.5) % Plt Count 114 L (150-450) k/uL Neutrophils # 9.6 H (1.3-7.7) k/uL Eosinophils # 1.2 H (0-0.7) k/uL Macrocytosis Marked A ABG Total CO2 26 H (19-24) mmol/L ABG O2 Saturation 98.5 H (94-97) % Sodium 135 L (137-145) mmol/L Potassium (3.5-5.1) mmol/L BUN 30 H (7-17) mg/dL Creatinine 4.02 H (0.52-1.04) mg/dL POC Glucose (mg/dL) (70-110) mg/dL Calcium 8.0 L (8.4-10.2) mg/dL C-Reactive Protein (<1.0) mg/dL Procalcitonin (0.02-0.09) ng/mL
[2023-03-06 14:54] VITALS: BMI 42.1
--- NOTE | 2023-03-06 17:11 | P.PN ---
Subjective Progress Note Date: 03/06/23 Principal diagnosis: Left foot wound and left leg cellulitis Patient is a 67-year-old female with a past medical history significant for cirrhosis of the liver, smoking, renal insufficiency who was recently admitted at this facility with the diffuse swelling to bilateral lower extremity patient also have a wound on the plantar aspect of the left foot which was debrided and culture subsequently came back positive with Pseudomonas aeruginosa MSSA and Enterococcus faecalis patient was discharged to the assisted with the midline and IV daptomycin and cefepime pending the patient was not able to get her antibiotics and has been sent to the hospital for the worsening cellulitis. Patient did get dialysis catheter and started on dialysis as of 03/01/2023, patient did have a cardiac arrest while undergoing dialysis on the morning of 03/05/2023 patient intubated and transferred to the ICU On today's evaluation that is 03/06/2023, the patient continues to be afebrile, the patient is currently on the vent and FiO2 is down to 50%, patient did require more pressor support during dialysis however the staff was unable to get any water out doing ultrafiltration, no other changes reported by nursing staff Patient white count is down to 13,000 today, creatinine is 4.02 Objective - Vital Signs Vital signs: Vital Signs Temp 97.5 F L 03/06/23 08:00 Pulse 53 L 03/06/23 09:15 Resp 16 03/06/23 09:15 BP 87/56 03/06/23 09:15 Pulse Ox 99 03/06/23 09:15 FiO2 40 03/06/23 08:00 Intake & Output 03/05/23 03/06/23 03/06/23 18:59 06:59 18:59 Intake Total 1365.442 771.515 91.122 Output Total 100 0 Balance 1265.442 771.515 91.122 Weight 104.6 kg Intake: IV 1160 340 20 Piperacillin-Tazobactam 3 100 .375 gm In Sodium Chloride 0.9% 100 ml @ 25 mls/hr IVPB Q12HR [facility] Rx #:[id number] Sodium Chloride 0.9% 1, 160 240 20 000 ml @ 20 mls/hr IV . Q24H [facility] Rx#:[id number] Sodium Chloride 0.9% 1, 1000 000 ml @ 999 mls/hr IV . Q1H1M [facility] Rx#:[id number] Intake, IV Titration 205.442 431.515 71.122 Amount Norepinephrine 4 mg In 2.822 256.520 Sodium Chloride 0.9% 250 ml @ 0.03 MCG/KG/MIN 10. 369 mls/hr IV .Q24H [facility] Rx#:[id number] fentaNYL (PF). 1,000 mcg 74.995 In Sodium Chloride 0.9% 80 ml @ 0.5 MCG/KG/HR 4. 536 mls/hr IV .Q22H3M [facility] Rx#:[id number] propofoL 1,000 mg In 202.620 100.000 71.122 Empty Bag 1 bag @ 15 MCG/ KG/MIN 8.165 mls/hr IV . [id number] [facility] Rx#:[id number] Output: Urine 100 0 Other: Voiding Method Indwelling Catheter Indwelling Catheter ABP, PAP, CO, CI - Last Documented Arterial Blood Pressure 127/60 - Exam GENERAL DESCRIPTION: An elderly female intubated on the vent RESPIRATORY SYSTEM: Unlabored breathing , decreased breath sounds at bases HEART: S1 S2 regular rate and rhythm , ABDOMEN: Soft , no tenderness EXTREMITIES: Left lower extremity swelling and redness has decreased - Labs CBC & Chem 7: 03/06/23 05:10 03/06/23 05:10 Labs: Abnormal Lab Results - Last 24 Hours (Table) 03/05/23 03/05/23 03/05/23 Range/Units 10:11 10:11 10:11 WBC 12.3 H (3.8-10.6) k/uL RBC 1.77 L (3.80-5.40) m/uL Hgb 6.2 L* D (11.4-16.0) gm/dL Hct 19.9 L* (34.0-46.0) % MCV 112.6 H (80.0-100.0) fL MCH (25.0-35.0) pg RDW 16.6 H (11.5-15.5) % Plt Count 66 L D (150-450) k/uL Neutrophils # 10.7 H (1.3-7.7) k/uL Lymphocytes # 0.4 L (1.0-4.8) k/uL Eosinophils # (0-0.7) k/uL Macrocytosis Marked A D-Dimer 20.54 H (<0.60) mg/L FEU ABG pO2 (83-108) mmHg ABG Total CO2 (19-24) mmol/L ABG O2 Saturation (94-97) % Sodium (137-145) mmol/L Potassium 3.0 L (3.5-5.1) mmol/L Carbon Dioxide 21 L (22-30) mmol/L BUN 28 H (7-17) mg/dL Creatinine 3.11 H (0.52-1.04) mg/dL Glucose 105 H (74-99) mg/dL POC Glucose (mg/dL) (70-110) mg/dL Calcium 7.8 L (8.4-10.2) mg/dL C-Reactive Protein (<1.0) mg/dL 03/05/23 03/05/23 03/05/23 Range/Units 10:12 11:47 11:47 WBC 16.2 H (3.8-10.6) k/uL RBC 2.33 L (3.80-5.40) m/uL Hgb 8.2 L D (11.4-16.0) gm/dL Hct 25.9 L (34.0-46.0) % MCV 110.9 H (80.0-100.0) fL MCH 35.1 H (25.0-35.0) pg RDW 16.4 H (11.5-15.5) % Plt Count 94 L (150-450) k/uL Neutrophils # (1.3-7.7) k/uL Lymphocytes # (1.0-4.8) k/uL Eosinophils # (0-0.7) k/uL Macrocytosis Marked A D-Dimer (<0.60) mg/L FEU ABG pO2 383 H (83-108) mmHg ABG Total CO2 26 H (19-24) mmol/L ABG O2 Saturation 100.0 H (94-97) % Sodium (137-145) mmol/L Potassium 3.3 L (3.5-5.1) mmol/L Carbon Dioxide (22-30) mmol/L BUN (7-17) mg/dL Creatinine (0.52-1.04) mg/dL Glucose (74-99) mg/dL POC Glucose (mg/dL) (70-110) mg/dL Calcium (8.4-10.2) mg/dL C-Reactive Protein (<1.0) mg/dL 03/05/23 03/05/23 03/06/23 Range/Units 11:47 17:51 00:11 WBC (3.8-10.6) k/uL RBC (3.80-5.40) m/uL Hgb (11.4-16.0) gm/dL Hct (34.0-46.0) % MCV (80.0-100.0) fL MCH (25.0-35.0) pg RDW (11.5-15.5) % Plt Count (150-450) k/uL Neutrophils # (1.3-7.7) k/uL Lymphocytes # (1.0-4.8) k/uL Eosinophils # (0-0.7) k/uL Macrocytosis D-Dimer (<0.60) mg/L FEU ABG pO2 (83-108) mmHg ABG Total CO2 (19-24) mmol/L ABG O2 Saturation (94-97) % Sodium (137-145) mmol/L Potassium (3.5-5.1) mmol/L Carbon Dioxide (22-30) mmol/L BUN (7-17) mg/dL Creatinine (0.52-1.04) mg/dL Glucose (74-99) mg/dL POC Glucose (mg/dL) 111 H 125 H (70-110) mg/dL Calcium (8.4-10.2) mg/dL C-Reactive Protein 4.5 H (<1.0) mg/dL 03/06/23 03/06/23 03/06/23 Range/Units 05:10 05:10 05:48 WBC 13.0 H (3.8-10.6) k/uL RBC 2.63 L (3.80-5.40) m/uL Hgb 9.1 L (11.4-16.0) gm/dL Hct 29.1 L (34.0-46.0) % MCV 110.5 H (80.0-100.0) fL MCH (25.0-35.0) pg RDW 16.4 H (11.5-15.5) % Plt Count 114 L (150-450) k/uL Neutrophils # 9.6 H (1.3-7.7) k/uL Lymphocytes # (1.0-4.8) k/uL Eosinophils # 1.2 H (0-0.7) k/uL Macrocytosis Marked A D-Dimer (<0.60) mg/L FEU ABG pO2 (83-108) mmHg ABG Total CO2 26 H (19-24) mmol/L ABG O2 Saturation 98.5 H (94-97) % Sodium 135 L (137-145) mmol/L Potassium (3.5-5.1) mmol/L Carbon Dioxide (22-30) mmol/L BUN 30 H (7-17) mg/dL Creatinine 4.02 H (0.52-1.04) mg/dL Glucose (74-99) mg/dL POC Glucose (mg/dL) (70-110) mg/dL Calcium 8.0 L (8.4-10.2) mg/dL C-Reactive Protein (<1.0) mg/dL Assessment and Plan (1) Failure of outpatient treatment Current Visit: Yes Status: Acute Code(s): Z78.9 - OTHER SPECIFIED HEALTH STATUS SNOMED Code(s): 999761218 (2) Left leg cellulitis Current Visit: No Status: Acute Code(s): L03.116 - CELLULITIS OF LEFT LOWER LIMB SNOMED Code(s): 19014223640058544 Plan: 1patient was in the hospital with worsening cellulitis to left lower extremity with recent culture positive for MSSA Enterococcus and Pseudomonas apparently the patient was unable to get antibiotic as prescribed on her last admission could be the likely reason for worsening of her left lower extremity cellulitis 2-patient also have a wound on the dorsum aspect of the left foot with slough tissue but no significant cellulitis and CT did not show any evidence of abscess 3-local wound care to the left foot wound with the Medihoney followed by moist dressing to be changed daily we also recommend Francisco wrap to the leg to keep the swelling down 4patient did have acute worsening of condition requiring intubation , culture has been repeated which are currently pending, patient to continue with the Zosyn and monitor clinical course closely prognosis remains to be guarded Dictation was produced using [employer] dictation software. please excuse any grammatical, word or spelling errors. Time with Patient: Less than 30
[2023-03-06 18:32] LABS: Glucose,Whole Blood 123 mg/dL (70-110)
[2023-03-07 00:01] LABS: Glucose,Whole Blood 145 mg/dL (70-110)
[2023-03-07] MEDS: NOREPINEPHRINE 4 MG in SODIUM CHLORIDE 0.9% 250 ML IV SCH ×2 (01:30→10:59)
[2023-03-07] MEDS ORDERED: HYDROmorphone 0.5 MG/0.5 ML SYRINGE IVP PRN (04:45)
[2023-03-07 05:16] LABS: Glucose,Whole Blood 121 mg/dL (70-110)
[2023-03-07 05:39] LABS: Anisocytosis Slight; Basophils % (A) 0 %; Eosinophils # (A) 0.8 k/uL (0-0.7); Eosinophils % (A) 5 %; HCT 29.3 % (34.0-46.0); Hypochromasia Marked; Lymphocytes # (A) 1.4 k/uL (1.0-4.8); Lymphocytes % (A) 9 %; MCH 33.9 pg (25.0-35.0); MCHC 30.9 g/dL (31.0-37.0); MCV 109.9 fL (80.0-100.0); Macrocytosis Marked; Mean Platelet Volume 10.9; Monocytes # (A) 0.7 k/uL (0-1.0); Monocytes % (A) 4 %; Neutrophils # (A) 12.5 k/uL (1.3-7.7); Neutrophils % (A) 80 %; RBC 2.66 m/uL (3.80-5.40); RDW 16.3 % (11.5-15.5); WBC 15.5 k/uL (3.8-10.6)
[2023-03-07 05:43] LABS: Platelet Count 78 k/uL (150-450)
[2023-03-07 06:14] LABS: ABG Base Excess 1.8 mmol/L; ABG HCO3 26 mmol/L (21-25); ABG Oxygen Saturation 99.1 % (94-97); ABG PCO2 38 mmHg (35-45); ABG PH 7.44 (7.35-7.45); ABG PO2 131 mmHg (83-108); ABG TCO2 27 mmol/L (19-24); Allen Test Performed? Yes
[2023-03-07 06:25] LABS: African American GFR (CKD) 15 (>60 ml/min/1.73 sqM); Anion Gap 9 mmol/L; Blood Urea Nitrogen 23 mg/dL (7-17); Calcium 7.8 mg/dL (8.4-10.2); Carbon Dioxide 22 mmol/L (22-30); Chloride 102 mmol/L (98-107); Glucose 116 mg/dL (74-99); Non-African American GFR(CKD) 13 (>60 ml/min/1.73 sqM); Sodium 133 mmol/L (137-145)
[2023-03-07] MEDS: MIDODRINE 5 MG TAB PO SCH ×3 (06:29→18:20)
--- NOTE | 2023-03-07 08:17 | XR ---
EXAMINATION TYPE: XR chest 1V portable DATE OF EXAM: 03/07/2023 COMPARISON: 03/06/2023 HISTORY: Tube placement TECHNIQUE: Single frontal view of the chest is obtained. FINDINGS: ET tube 1.9 cm above frantz. G-tube in the left upper quadrant likely within the body. Mendez ited inspiration with left lower lobe consolidation and small effusion. Right-sided central line with tip overlying the right atrial SVC junction. No pneumothorax IMPRESSION: 1. Basilar atelectasis favored over pneumonia correlate clinically
[2023-03-07] MEDS: LACTULOSE 20 GM/30 ML CUP PO SCH ×3 (08:35→22:56)
[2023-03-07] MEDS: HEPARIN SODIUM,PORCINE 5,000 UNIT/ML 1 ML VIAL SQ SCH ×2 (08:36→21:37)
[2023-03-07] MEDS: THIAMINE 100 MG TAB PO SCH (08:36)
[2023-03-07] MEDS: PANTOPRAZOLE 40 MG/10 ML VIAL IV SCH (08:36)
[2023-03-07] MEDS: PIPERACILLIN-TAZOBACTAM 3.375 GM in SODIUM CHLORIDE 0.9% 100 ML IVPB SCH ×2 (08:36→21:37)
[2023-03-07] MEDS: FOLIC ACID 1 MG TAB PO SCH (08:36)
[2023-03-07] MEDS: CHLORHEXIDINE GLUCONATE 15 ML CUP MUCOUS MEM SCH ×2 (08:36→21:37)
[2023-03-07] MEDS: SODIUM CHLORIDE 0.9% 1,000 ML IV SCH (09:54)
[2023-03-07] MEDS ORDERED: MAGNESIUM SULFATE-D5W PMX 1 GM in DEXTROSE/WATER 1 100ML.BAG IVPB ONE (10:47)
--- NOTE | 2023-03-07 11:37 | P.PN ---
Subjective Patient is seen for follow-up for acute kidney injury. Patient is seen on hemodialysis. Patient did not tolerate her treatment. It was attempted twice and both times blood pressure dropped significantly to systolic in the 50s. Patient has been taken off and we will hold any further hemodialysis today. FiO2 at 40% Levo fed currently at 0.08 g Objective - Vital Signs Vital signs: Vital Signs Temp 96.9 F L 03/07/23 04:00 Pulse 73 03/07/23 07:00 Resp 16 03/07/23 07:00 BP 110/68 03/07/23 00:00 Pulse Ox 100 03/07/23 07:00 FiO2 35 03/07/23 10:49 Intake & Output 03/06/23 03/07/23 03/07/23 18:59 06:59 18:59 Intake Total 1707.767 623.595 120.795 Output Total 16 0 Balance 1691.767 623.595 120.795 Weight 104.6 kg 106.4 kg Intake: IV 240 240 20 Sodium Chloride 0.9% 1, 240 240 20 000 ml @ 20 mls/hr IV . Q24H [facility] Rx#:[id number] Intake, IV Titration 817.767 383.595 100.795 Amount Norepinephrine 4 mg In 638.279 337.529 33.298 Sodium Chloride 0.9% 250 ml @ 0.03 MCG/KG/MIN 10. 369 mls/hr IV .Q24H [facility] Rx#:[id number] fentaNYL (PF). 1,000 mcg 54.432 In Sodium Chloride 0.9% 80 ml @ 0.5 MCG/KG/HR 4. 536 mls/hr IV .Q22H3M [facility] Rx#:[id number] propofoL 1,000 mg In 125.056 46.066 67.497 Empty Bag 1 bag @ 15 MCG/ KG/MIN 8.165 mls/hr IV . [id number] [facility] Rx#:[id number] Hemodialysis 650 Output: Urine 16 0 Hemodialysis 0 Other: Voiding Method Indwelling Catheter Indwelling Catheter ABP, PAP, CO, CI - Last Documented Arterial Blood Pressure 107/51 - Exam Patient is sedated and on the vent HEENT atraumatic normocephalic Examination of the heart S1 and S2 Examination lungs bilateral breath sounds are heard abdomen is soft with ventral hernia. Examination lower extremities shows edema 2+ bilaterally with chronic skin changes - Labs CBC & Chem 7: 03/07/23 05:10 03/07/23 05:10 Labs: Abnormal Lab Results - Last 24 Hours (Table) 03/06/23 03/06/23 03/07/23 Range/Units 18:30 23:59 05:10 WBC 15.5 H (3.8-10.6) k/uL RBC 2.66 L (3.80-5.40) m/uL Hgb 9.0 L (11.4-16.0) gm/dL Hct 29.3 L (34.0-46.0) % MCV 109.9 H (80.0-100.0) fL MCHC 30.9 L (31.0-37.0) g/dL RDW 16.3 H (11.5-15.5) % Plt Count 78 L (150-450) k/uL Neutrophils # 12.5 H (1.3-7.7) k/uL Eosinophils # 0.8 H (0-0.7) k/uL Macrocytosis Marked A ABG pO2 (83-108) mmHg ABG HCO3 (21-25) mmol/L ABG Total CO2 (19-24) mmol/L ABG O2 Saturation (94-97) % Sodium (137-145) mmol/L BUN (7-17) mg/dL Creatinine (0.52-1.04) mg/dL Glucose (74-99) mg/dL POC Glucose (mg/dL) 123 H 145 H (70-110) mg/dL Calcium (8.4-10.2) mg/dL 03/07/23 03/07/23 03/07/23 Range/Units 05:10 05:15 06:11 WBC (3.8-10.6) k/uL RBC (3.80-5.40) m/uL Hgb (11.4-16.0) gm/dL Hct (34.0-46.0) % MCV (80.0-100.0) fL MCHC (31.0-37.0) g/dL RDW (11.5-15.5) % Plt Count (150-450) k/uL Neutrophils # (1.3-7.7) k/uL Eosinophils # (0-0.7) k/uL Macrocytosis ABG pO2 131 H (83-108) mmHg ABG HCO3 26 H (21-25) mmol/L ABG Total CO2 27 H (19-24) mmol/L ABG O2 Saturation 99.1 H (94-97) % Sodium 133 L (137-145) mmol/L BUN 23 H (7-17) mg/dL Creatinine 3.40 H (0.52-1.04) mg/dL Glucose 116 H (74-99) mg/dL POC Glucose (mg/dL) 121 H (70-110) mg/dL Calcium 7.8 L (8.4-10.2) mg/dL Microbiology - Last 24 Hours (Table) 03/05/23 20:48 Gram Stain - Preliminary Sputum 03/05/23 17:00 Blood Culture - Preliminary Blood Assessment and Plan Assessment: 1. Acute kidney injury secondary to ATN secondary to hepatorenal syndrome. No hydronephrosis noted on CAT scan done December 2022. Oliguric. Creatinine near and January 2023. Started on hemodialysis 03/01/2023. Has a temporary dialysis catheter. Patient is not tolerating the dialysis treatment today. We will plan for possible sled procedure tomorrow. 2. Alcohol-induced liver cirrhosis. 3. Volume overload. Status post paracentesis. 2.5 L drained 02/27/2023. 4. Left lower extremity cellulitis on antibiotics. 5. Anemia. Iron replete. On Aranesp. 6. Status post cardiac arrest, currently on the vent. 7. Hypokalemia status post replacement. Plan: Hold hemodialysis today as patient is not able to tolerate treatment related was attempted twice. We will attempt sustained low efficiency dialysis (sled ) procedure tomorrow.
[2023-03-07 12:00] LABS: Glucose,Whole Blood 137 mg/dL (70-110)
--- NOTE | 2023-03-07 12:06 | P.PN ---
Subjective Progress Note Date: 03/07/23 Principal diagnosis: Cardiac arrest This is a 67-year-old female with history of multiple medical problems including chronic cellulitis of the left lower extremity, liver cirrhosis, hepatorenal syndrome, patient was treated on outpatient basis at the [facility] facility for her cellulitis and she was receiving antibiotics in the form of cefepime and daptomycin. However the patient was not making any improvement, and infectious disease recommended breaking the patient to the hospital and she was admitted on 02/25/2023 for IV antibiotics of her cellulitis. Since her admission until today the patient was seen by many consultants including internal medicine, infectious disease, vascular surgery, her condition was getting worse, and on 03/01/2023, patient had a right femoral dialysis catheter placed. And the patient has been on hemodialysis. Today, shortly after the patient started on dialysis, patient went into cardiac arrest, and LEE GRIER was called. Patient had CPR for less than 5 minutes, she was intubated, and transferred to the ICU. Hence I was asked to see the patient on consultation. When the patient arrived to the ER, her blood pressure was noted to be marginal, and I went ahead and placed a right radial arterial line and a right subclavian triple-lumen catheter. Patient is now on assist control mode of mechanical ventilation, tidal volume of 400, rate of 14, FiO2 on the percent and PEEP of 5. ABG showed a pO2 of 383 pCO2 39 pH of 7.41. CBC showed a hemoglobin of 6.2, her hemoglobin yesterday was 8.6. D- dimer is significantly elevated at 20.54, hence a venous Doppler will be ordered stat, and decide whether the patient needs to be on heparin. BUN is 28 creatinine 3.11. Chest x-ray upon admission to the ICU showed no evidence of a cute pulmonary process Patient was reevaluated today on 03/06/2023, she remains in the ICU, intubated and mechanically ventilated. Patient is still quite sick, and critically ill. She is on assist control rate of 16 Dilaudid 400 FiO2 40% and PEEP of 5. Her ABG showed a pO2 of 107 pCO2 37 pH of 7.43, hence no ventilator changes were made. Patient is still requiring multiple drips including propofol 50 mcg/m fentanyl 0.5 mcg/kg/h norepinephrine at 0.02 mcg/kg/m and her IV fluids at KVO. WBC count is 13 hemoglobin 9.1 platelets are 114, basic metabolic profile is normal BUN is 30 and creatinine 4.02. Patient may end up getting hemodialysis today. Patient remains on Zosyn. And this is ordered by infectious disease on the case. Patient is sedated, however I plan to assess her mental status today by giving her a sedation interruption or sedation holiday. But at this point she is still not quite ready for weaning. Venous Doppler is negative for DVT, chest x-ray today showed bilateral/bibasilar atelectasis Reevaluated today on 03/07/2023, patient remains in the ICU, intubated and mechanically ventilated. Sedation was placed on hold yesterday, and the patient did not tolerate coming off sedation as she was getting restless and agitated and did not follow any instructions did not seem to be appropriate and clearly not quite ready for any weaning trials. Today we'll try the same thing possible in the meantime I'm recommending a CT of the head and may consider neurological evaluation on this patient, concerned about the possibility of anoxic brain injury/anoxic encephalopathy. She is on assist control rate of 16 tidal volume 400 FiO2 40% and PEEP of 5 ABG showed a pO2 of 131 pCO2 38 pH of 7.44. Hence FiO2 was cut down to 35%. Patient is supposed to have hemodialysis again today. She remains on propofol at 50 mcg/kg/m norepinephrine at 0.02 mcg/kg/m IV fluid at KVO and she is receiving receiving vital HP 20 mL per hour. Chest x-ray showed mostly bibasilar, doubt pneumonia. WBC count 15 point hemoglobin 9, platelets 78,000 basic metabolic profile is normal BUN is 23 creatinine 3.40 Objective - Vital Signs Vital signs: Vital Signs Temp 97.5 F L 03/07/23 08:00 Pulse 72 03/07/23 11:30 Resp 19 03/07/23 11:30 BP 74/46 03/07/23 11:30 Pulse Ox 92 L 03/07/23 11:30 FiO2 35 03/07/23 10:49 Intake & Output 03/06/23 03/07/23 03/07/23 18:59 06:59 18:59 Intake Total 1707.767 623.595 415.790 Output Total 16 0 6 Balance 1691.767 623.595 409.790 Weight 104.6 kg 106.4 kg Intake: IV 240 240 212 Piperacillin-Tazobactam 3 100 .375 gm In Sodium Chloride 0.9% 100 ml @ 25 mls/hr IVPB Q12HR [facility] Rx #:[id number] Sodium Chloride 0.9% 1, 240 240 112 000 ml @ 20 mls/hr IV . Q24H [facility] Rx#:[id number] Intake, IV Titration 817.767 383.595 203.790 Amount Magnesium Sulfate-D5w Pmx 100 1 gm In Dextrose/Water 1 100ml.bag @ 100 mls/hr IVPB ONCE ONE Rx#: [id number] Norepinephrine 4 mg In 638.279 337.529 36.293 Sodium Chloride 0.9% 250 ml @ 0.03 MCG/KG/MIN 10. 369 mls/hr IV .Q24H [facility] Rx#:[id number] fentaNYL (PF). 1,000 mcg 54.432 In Sodium Chloride 0.9% 80 ml @ 0.5 MCG/KG/HR 4. 536 mls/hr IV .Q22H3M [facility] Rx#:[id number] propofoL 1,000 mg In 125.056 46.066 67.497 Empty Bag 1 bag @ 15 MCG/ KG/MIN 8.165 mls/hr IV . [id number] [facility] Rx#:[id number] Hemodialysis 650 Output: Urine 16 0 6 Hemodialysis 0 Other: Voiding Method Indwelling Catheter Indwelling Catheter ABP, PAP, CO, CI - Last Documented Arterial Blood Pressure 116/51 - Exam Physical Exam: Revealed a 67-year-old female, intubated mechanically ventilated and sedated. On propofol at 50 mcg/kg/m Head: Atraumatic, normocephalic, endotracheal tube and orogastric tubes are intact. HEENT:[ Pupils are dilated and reactive to light No neck masses.] [No thyromegaly.] [No JVD.], right subclavian central line is intact Chest: [Symmetrical chest expansion, clear bilaterally no crackles or rhonchi or wheezes Cardiac Exam: Distant S1 and S2, no S3 gallop, 2/6 systolic murmur throughout the precordium.] Abdomen: [Soft, nontender, no megaly, no rebound, no guarding, normal bowel sounds.] Extremities: 3+ bipedal edema with chronic skin changes, left lower extremity is wrapped with a sterile dressing, patient has chronic cellulitis of the left lower extremity noted. Neurological Exam: Unable to assess patient is sedated, on propofol, Psychiatric: Could not assess. Skin: Evidence of chronic cellulitis of left lower extremity left lower extremity is wrapped - Labs CBC & Chem 7: 03/07/23 05:10 03/07/23 05:10 Labs: Abnormal Lab Results - Last 24 Hours (Table) 03/06/23 03/06/23 03/07/23 Range/Units 18:30 23:59 05:10 WBC 15.5 H (3.8-10.6) k/uL RBC 2.66 L (3.80-5.40) m/uL Hgb 9.0 L (11.4-16.0) gm/dL Hct 29.3 L (34.0-46.0) % MCV 109.9 H (80.0-100.0) fL MCHC 30.9 L (31.0-37.0) g/dL RDW 16.3 H (11.5-15.5) % Plt Count 78 L (150-450) k/uL Neutrophils # 12.5 H (1.3-7.7) k/uL Eosinophils # 0.8 H (0-0.7) k/uL Macrocytosis Marked A ABG pO2 (83-108) mmHg ABG HCO3 (21-25) mmol/L ABG Total CO2 (19-24) mmol/L ABG O2 Saturation (94-97) % Sodium (137-145) mmol/L BUN (7-17) mg/dL Creatinine (0.52-1.04) mg/dL Glucose (74-99) mg/dL POC Glucose (mg/dL) 123 H 145 H (70-110) mg/dL Calcium (8.4-10.2) mg/dL 03/07/23 03/07/23 03/07/23 Range/Units 05:10 05:15 06:11 WBC (3.8-10.6) k/uL RBC (3.80-5.40) m/uL Hgb (11.4-16.0) gm/dL Hct (34.0-46.0) % MCV (80.0-100.0) fL MCHC (31.0-37.0) g/dL RDW (11.5-15.5) % Plt Count (150-450) k/uL Neutrophils # (1.3-7.7) k/uL Eosinophils # (0-0.7) k/uL Macrocytosis ABG pO2 131 H (83-108) mmHg ABG HCO3 26 H (21-25) mmol/L ABG Total CO2 27 H (19-24) mmol/L ABG O2 Saturation 99.1 H (94-97) % Sodium 133 L (137-145) mmol/L BUN 23 H (7-17) mg/dL Creatinine 3.40 H (0.52-1.04) mg/dL Glucose 116 H (74-99) mg/dL POC Glucose (mg/dL) 121 H (70-110) mg/dL Calcium 7.8 L (8.4-10.2) mg/dL Microbiology - Last 24 Hours (Table) 03/05/23 20:48 Gram Stain - Preliminary Sputum 03/05/23 17:00 Blood Culture - Preliminary Blood Assessment and Plan Assessment: Impression: Cardiac arrest status post CPR, downtime about 5 minutes Suspect anoxic brain injury Acute hypoxic respiratory failure secondary to cardiac arrest requiring intubation and mechanical ventilation Acute kidney injury secondary to ATN and hepatorenal syndrome History of alcohol-induced liver cirrhosis Hepatorenal syndrome Fluid overload requiring paracentesis with 2.5 L drained recently. Chronic left lower extremity cellulitis, on antibiotics Chronic anemia, on Aranesp. Elevated d-dimer, negative Dopplers of lower extremities. Acute metabolic encephalopathy Ascites requiring paracentesis with volume overload, secondary to hepatorenal syndrome hypotension requiring low-dose of norepinephrine, possibly cardiogenic in nature doubt septic shock, patient probably is intravascularly depleted causing hypotension./Intravascular hypovolemia, awaiting echocardiogram Recommendation: Daily interruption of sedation and assessment of mental status CT of the head today without contrast Consider neurological consultation Continue ventilatory support Continue hemodynamic support, patient is on norepinephrine at low-dose Continue Zosyn empirically Continue nutritional support GI and DVT prophylaxis Patient is critically ill Critical care time is over 35 min We will continue to follow. Time with Patient: Greater than 30
[2023-03-07 12:15] LABS: Amorphous Sediment,Urine Rare /hpf; Appearance,Urine Turbid (Clear); Bacteria,Urine Occasional /hpf; Bilirubin,Urine Negative (Negative); Blood,Urine Large (Negative); Color,Urine Light Red; Glucose,Urine (UA) Negative (Negative); Ketones,Urine Trace (Negative); Leukocyte Esterase,Urine Large (Negative); Mucus,Urine Occasional /hpf; Nitrite,Urine Negative (Negative); PH, Urine 5.5 (5.0-8.0); Protein,Urine 3+ (Negative); RBC,Urine 44 /hpf (0-5); Specific Gravity,Urine 1.028 (1.001-1.035); Squamous Epithelial Cell,Urine 1 /hpf (0-4); Urobilinogen,Urine <2.0 mg/dL (<2.0); WBC,Urine >182 /hpf (0-5)
--- NOTE | 2023-03-07 12:49 | P.PN ---
Subjective Progress Note Date: 03/07/23 67-year-old lady with past medical history significant for left lower extremity cellulitis, hepatorenal syndrome, liver cirrhosis, who was at [facility] for treatment of left lower extremity cellulitis. Patient was apparently on IV antibiotics cefepime and daptomycin at the facility for left lower external cellulitis, apparently cellulitis was worsening so the ID recommended transferring patient to the hospital. Patient also developed generalized rash over the weekend which is improved. There was no complain of fever or chills. No cold or shortness of breath or chest pain. patient has been having good appetite. Initial lab work done in the ER showed WBC 10.4, crit of 11.4, platelet count 2 45, sodium 1:30, potassium 4, BUN 59, creatinine 3.86 CRP 5.2 UA done showed large leukocyte Estrace, urine nitrate negative, WBC 22 Patient was admitted to medicine service 02/27/2023atient is currently lying in bed. Awake alert and oriented. No complaints of chest pain or shortness of breath. Denies any nausea vomiting or abdominal pain. Left lower extremity pain is better with medications. Otherwise patient underwent paracentesis with 2.5 l of fluid removal.Laboratory data showed sodium 138 potassium 3.8 chloride 104 bicarb is 19 BUN 61.6 and creatinine 4.2. Patient is being continued on antibiotics daptomycin and cefepime. 02/28/2023atient was awake and oriented. Able to tolerate oral diet this morning. No complaints of chest pain or shortness of breath. Pain is controlled. Left leg is Francisco wrapped. Patient has been afebrile. No cough or sputum production. No headache or dizziness or lightheadedness. Laboratory data showed WBC 12.4 hemoglobin 8.8 and platelets 250 BUN 63.4 and creatinine remains same at 4.2. Patient is being continued on IV Lasix and Aldactone. Nephrology is on board. Patient is also on midodrine. Dr Melgar Assumed care 03/01/2023: Patient seen and evaluated bedside. Care plan discussed with sister and son at bedside. Patient remains disoriented alert to person continue to fidget Minimal urine output, hemoglobin 8.1 creatinine 4.4 BUN of 64. Nephrology rounding plan for initiation of hemodialysis. Lastly consulted for vascular access for hemodialysis 03/02/2023: Patient seen and evaluated bedside. Patient is alert however oriented 0, patient is fidgeting, does not follow commands. Patient undergoing hemodialysis. Blood work shows hemoglobin of 8.8 hematocrit of 27 platelet count of 27. WBC 13.50 serum ammonia of 30 CRP of 5.10 03/03/2023: Patient seen and evaluated bedside, patient is drowsy, disoriented. Underwent hemodialysis yesterday we will follow-up on hematology and serum chemistry. Blood pressure 112/76, heart rate stable, afebrile 03/04/23: Patient seen and evaluated bedside, patient is alert however Disoriented second session of dialysis undergone today. Mentation has improved slightly. Continue patient on oral medications as tolerated. Continue IV Zosyn appreciated input from infectious disease. Serum chemistry reviewed. Does have low magnesium 1.7. To be corrected with hemodialysis. Sodium 136 potassium 3.2. Not medically ready for discharge 03/05/23: Patient was evaluated during CODE BLUE and in ICU. Patient had a brief loss of pulse and was given 1 round of epinephrine. Secondary to encep halopathy patient was intubated. While in ICU. Blood work was obtained which show hemoglobin less than 7. Nephrology following for hemodialysis. Dialysis was stopped secondary to hypotension. During the code. Patient transferred to ICU and family notified. Patient's sister was for notified about the events. Patient prognosis remains guarded. While in ICU patient started on Levophed drip 03/06. Patient seen and examined. Continues to be intubated. Critical care following, planning to give patient's sedation holiday today. Lab work done this morning showed W BC 13, hemoglobin 9.1, platelet count 114 03/07/23: Patient seen and evaluated bedside. Patient remains intubated and sedated on propofol. CT head has been ordered, since patient did not tolerate coming off sedation. Intolerant to hemodialysis blood pressure dropped hence did not receive dialysis today. Goals of care discussed with patient and family Objective - Vital Signs Vital signs: Vital Signs Temp 96.1 F L 03/07/23 12:06 Pulse 71 03/07/23 12:06 Resp 29 H 03/07/23 12:06 BP 101/47 03/07/23 12:06 Pulse Ox 100 03/07/23 12:06 FiO2 35 03/07/23 12:06 Intake & Output 03/06/23 03/07/23 03/07/23 18:59 06:59 18:59 Intake Total 1707.767 431.643 4338.790 Output Total 16 0 206 Balance 1691.767 766.420 0797.790 Weight 104.6 kg 106.4 kg Intake: IV 240 240 212 Piperacillin-Tazobactam 3 100 .375 gm In Sodium Chloride 0.9% 100 ml @ 25 mls/hr IVPB Q12HR [facility] Rx #:[id number] Sodium Chloride 0.9% 1, 240 240 112 000 ml @ 20 mls/hr IV . Q24H [facility] Rx#:[id number] Intake, IV Titration 817.767 383.595 203.790 Amount Magnesium Sulfate-D5w Pmx 100 1 gm In Dextrose/Water 1 100ml.bag @ 100 mls/hr IVPB ONCE ONE Rx#: [id number] Norepinephrine 4 mg In 638.279 337.529 36.293 Sodium Chloride 0.9% 250 ml @ 0.03 MCG/KG/MIN 10. 369 mls/hr IV .Q24H [facility] Rx#:[id number] fentaNYL (PF). 1,000 mcg 54.432 In Sodium Chloride 0.9% 80 ml @ 0.5 MCG/KG/HR 4. 536 mls/hr IV .Q22H3M [facility] Rx#:[id number] propofoL 1,000 mg In 125.056 46.066 67.497 Empty Bag 1 bag @ 15 MCG/ KG/MIN 8.165 mls/hr IV . [id number] [facility] Rx#:[id number] Hemodialysis 650 800 Output: Urine 16 0 6 Hemodialysis 0 200 Other: Voiding Method Indwelling Catheter Indwelling Catheter ABP, PAP, CO, CI - Last Documented Arterial Blood Pressure 116/51 - Exam PHYSICAL EXAMINATION: GENERAL: The patient is alert and oriented x 0, ill appearance, hemodialysis catheter right groin, intubated CARDIOVASCULAR: S1 and S2 present. 2+ lower extremity edema PULMONARY: Decreased breath sounds bilaterally, intubated ABDOMEN: Distended, ventral wall hernia seen, no tenderness MUSCULOSKELETAL: No joint swelling or deformity. EXTREMITIES: 2+ pitting edema of lower extremities bilaterally, erythema of left lower extremity, left lower extremity bandaged NEUROLOGICAL: Disoriented, intubated and sedated - Labs CBC & Chem 7: 03/07/23 05:10 03/07/23 05:10 Labs: Abnormal Lab Results - Last 24 Hours (Table) 03/06/23 03/06/23 03/07/23 Range/Units 18:30 23:59 05:10 WBC 15.5 H (3.8-10.6) k/uL RBC 2.66 L (3.80-5.40) m/uL Hgb 9.0 L (11.4-16.0) gm/dL Hct 29.3 L (34.0-46.0) % MCV 109.9 H (80.0-100.0) fL MCHC 30.9 L (31.0-37.0) g/dL RDW 16.3 H (11.5-15.5) % Plt Count 78 L (150-450) k/uL Neutrophils # 12.5 H (1.3-7.7) k/uL Eosinophils # 0.8 H (0-0.7) k/uL Macrocytosis Marked A ABG pO2 (83-108) mmHg ABG HCO3 (21-25) mmol/L ABG Total CO2 (19-24) mmol/L ABG O2 Saturation (94-97) % Sodium (137-145) mmol/L BUN (7-17) mg/dL Creatinine (0.52-1.04) mg/dL Glucose (74-99) mg/dL POC Glucose (mg/dL) 123 H 145 H (70-110) mg/dL Calcium (8.4-10.2) mg/dL Urine Appearance (Clear) Urine Protein (Negative) Urine Ketones (Negative) Urine Blood (Negative) Ur Leukocyte Esterase (Negative) Urine RBC (0-5) /hpf Urine WBC (0-5) /hpf Amorphous Sediment (None) /hpf Urine Bacteria (None) /hpf Urine Mucus (None) /hpf 03/07/23 03/07/23 03/07/23 Range/Units 05:10 05:15 06:11 WBC (3.8-10.6) k/uL RBC (3.80-5.40) m/uL Hgb (11.4-16.0) gm/dL Hct (34.0-46.0) % MCV (80.0-100.0) fL MCHC (31.0-37.0) g/dL RDW (11.5-15.5) % Plt Count (150-450) k/uL Neutrophils # (1.3-7.7) k/uL Eosinophils # (0-0.7) k/uL Macrocytosis ABG pO2 131 H (83-108) mmHg ABG HCO3 26 H (21-25) mmol/L ABG Total CO2 27 H (19-24) mmol/L ABG O2 Saturation 99.1 H (94-97) % Sodium 133 L (137-145) mmol/L BUN 23 H (7-17) mg/dL Creatinine 3.40 H (0.52-1.04) mg/dL Glucose 116 H (74-99) mg/dL POC Glucose (mg/dL) 121 H (70-110) mg/dL Calcium 7.8 L (8.4-10.2) mg/dL Urine Appearance (Clear) Urine Protein (Negative) Urine Ketones (Negative) Urine Blood (Negative) Ur Leukocyte Esterase (Negative) Urine RBC (0-5) /hpf Urine WBC (0-5) /hpf Amorphous Sediment (None) /hpf Urine Bacteria (None) /hpf Urine Mucus (None) /hpf 03/07/23 03/07/23 Range/Units 08:17 11:58 WBC (3.8-10.6) k/uL RBC (3.80-5.40) m/uL Hgb (11.4-16.0) gm/dL Hct (34.0-46.0) % MCV (80.0-100.0) fL MCHC (31.0-37.0) g/dL RDW (11.5-15.5) % Plt Count (150-450) k/uL Neutrophils # (1.3-7.7) k/uL Eosinophils # (0-0.7) k/uL Macrocytosis ABG pO2 (83-108) mmHg ABG HCO3 (21-25) mmol/L ABG Total CO2 (19-24) mmol/L ABG O2 Saturation (94-97) % Sodium (137-145) mmol/L BUN (7-17) mg/dL Creatinine (0.52-1.04) mg/dL Glucose (74-99) mg/dL POC Glucose (mg/dL) 137 H (70-110) mg/dL Calcium (8.4-10.2) mg/dL Urine Appearance Turbid H (Clear) Urine Protein 3+ H (Negative) Urine Ketones Trace H (Negative) Urine Blood Large H (Negative) Ur Leukocyte Esterase Large H (Negative) Urine RBC 44 H (0-5) /hpf Urine WBC >182 H (0-5) /hpf Amorphous Sediment Rare H (None) /hpf Urine Bacteria Occasional H (None) /hpf Urine Mucus Occasional H (None) /hpf Microbiology - Last 24 Hours (Table) 03/05/23 20:48 Gram Stain - Preliminary Sputum 03/05/23 17:00 Blood Culture - Preliminary Blood Assessment and Plan Assessment: Assessment and plan * Acute respiratory failure requiring intubation * Septic shock * Acute on chronic anemia * Left lower extremity cellulitis * Acute metabolic encephalopathy * Acute kidney injury secondary to ATN secondary to hepatorenal syndrome. Started hemodialysis * Alcohol-induced liver cirrhosis * Ascites s/p paracentesis with 2.5 L fluid removal on 02/27. * Anemia of chronic kidney disease * Consult obtained from infectious disease, vascular surgery, nephrology * In regards to worsening renal function and renal failure, nephrology to manage hemodialysis, no dialysis on 03/07 secondary to hypotension * In regards to alcohol-induced liver cirrhosis, metabolic encephalopathy, follow-up on ammonia levels, continue lactulose * In regards to episode of hypotension, continue on levophed in ICU * In regards to ascites from liver cirrhosis patient had paracentesis 2.5 L removed 02/27, fluid management with dialysis as needed * In regards to anemia from chronic kidney disease continue to monitor H&H, transfuse as needed * In regards to left lower extremity cellulitis continue Zosyn and infectious disease following * Prognosis remains guarded expect prolonged hospitalization * Medical ICU team consulted
--- NOTE | 2023-03-07 12:58 | CT ---
EXAMINATION TYPE: CT brain wo con DATE OF EXAM: 03/07/2023 COMPARISON: 12/14/2022 HISTORY: AMS CT DLP: 1094.4 mGycm Automated exposure control for dose reduction was used. FINDINGS: There is generalized degenerative changes spine. There is CSF prominence soft tissues increased wire exam compatible with sizable chronic subdural hematomas extending over the convexities bilaterally. T hin rim of hyperdensity seen on axial image 19 than representing any acute No midline shift. Hypodensity within the white matter compatible with remote ischemic white matter ch laci. Calvarium is grossly intact. Orbits are symmetric. Craniocervical junction maintained. The sell a turcica has a normal appearance. Tiny right parietal osteoma. 4 called to the patient's ICU nurse 1 [phone] at 03/07/2023. IMPRESSION: THERE ARE LARGE BILATERAL CHRONIC SUBDURAL HEMATOMAS. THIS IS INCREASED IN SIZE FROM THE PRIOR EXAM W ITH MAXIMAL THICKNESS OF 1.7 CM . NO MIDLINE SHIFT. THERE IS A TINY HYPERDENSITY NOTED ON AXIAL IMAGE 19 AND A TINY ACUTE COMPONENT IN THE DIFFERENTIAL DIAGNOSIS.
[2023-03-07] MEDS: DARBEPOETIN ALFA 40 MCG/0.4 ML SYRINGE SQ SCH (14:18)
--- NOTE | 2023-03-07 15:25 | P.PN ---
Subjective Progress Note Date: 03/07/23 Principal diagnosis: Left foot wound and left leg cellulitis Patient is a 67-year-old female with a past medical history significant for cirrhosis of the liver, smoking, renal insufficiency who was recently admitted at this facility with the diffuse swelling to bilateral lower extremity patient also have a wound on the plantar aspect of the left foot which was debrided and culture subsequently came back positive with Pseudomonas aeruginosa MSSA and Enterococcus faecalis patient was discharged to the custodial with the midline and IV daptomycin and cefepime pending the patient was not able to get her antibiotics and has been sent to the hospital for the worsening cellulitis. Patient did get dialysis catheter and started on dialysis as of 03/01/2023, patient did have a cardiac arrest while undergoing dialysis on the morning of 03/05/2023 patient intubated and transferred to the ICU On today's evaluation that is 03/07/2023, the patient remains to be afebrile, the patient is currently on the vent and FiO2 is down to 35 %, patient is requiring pressor support to maintain her blood pressure, no purulent secretions through the ET, or any other changes reported by nursing staff Patient white count is slightly up to 15.5 today, creatinine is 3.40, UA check today positive Objective - Vital Signs Vital signs: Vital Signs Temp 96.3 F L 03/07/23 14:15 Pulse 67 03/07/23 14:15 Resp 16 03/07/23 14:15 BP 109/69 03/07/23 12:30 Pulse Ox 97 03/07/23 14:15 FiO2 35 03/07/23 13:01 Intake & Output 03/06/23 03/07/23 03/07/23 18:59 06:59 18:59 Intake Total 1707.767 582.882 6766.988 Output Total 16 0 206 Balance 1691.767 319.229 3290.988 Weight 104.6 kg 106.4 kg Intake: IV 240 240 281 Piperacillin-Tazobactam 3 100 .375 gm In Sodium Chloride 0.9% 100 ml @ 25 mls/hr IVPB Q12HR [facility] Rx #:[id number] Sodium Chloride 0.9% 1, 240 240 181 000 ml @ 20 mls/hr IV . Q24H [facility] Rx#:[id number] Intake, IV Titration 817.767 383.595 224.988 Amount Magnesium Sulfate-D5w Pmx 100 1 gm In Dextrose/Water 1 100ml.bag @ 100 mls/hr IVPB ONCE ONE Rx#: [id number] Norepinephrine 4 mg In 638.279 337.529 57.491 Sodium Chloride 0.9% 250 ml @ 0.03 MCG/KG/MIN 10. 369 mls/hr IV .Q24H [facility] Rx#:[id number] fentaNYL (PF). 1,000 mcg 54.432 In Sodium Chloride 0.9% 80 ml @ 0.5 MCG/KG/HR 4. 536 mls/hr IV .Q22H3M [facility] Rx#:[id number] propofoL 1,000 mg In 125.056 46.066 67.497 Empty Bag 1 bag @ 15 MCG/ KG/MIN 8.165 mls/hr IV . [id number] [facility] Rx#:[id number] Hemodialysis 650 800 Output: Urine 16 0 6 Hemodialysis 0 200 Other: Voiding Method Indwelling Catheter Indwelling Catheter Indwelling Catheter ABP, PAP, CO, CI - Last Documented Arterial Blood Pressure 110/54 - Exam GENERAL DESCRIPTION: An elderly female intubated on the vent RESPIRATORY SYSTEM: Unlabored breathing , decreased breath sounds at bases HEART: S1 S2 regular rate and rhythm , ABDOMEN: Soft , no tenderness EXTREMITIES: Left lower extremity swelling and redness has decreased - Labs CBC & Chem 7: 03/07/23 05:10 03/07/23 05:10 Labs: Abnormal Lab Results - Last 24 Hours (Table) 03/06/23 03/06/23 03/07/23 Range/Units 18:30 23:59 05:10 WBC 15.5 H (3.8-10.6) k/uL RBC 2.66 L (3.80-5.40) m/uL Hgb 9.0 L (11.4-16.0) gm/dL Hct 29.3 L (34.0-46.0) % MCV 109.9 H (80.0-100.0) fL MCHC 30.9 L (31.0-37.0) g/dL RDW 16.3 H (11.5-15.5) % Plt Count 78 L (150-450) k/uL Neutrophils # 12.5 H (1.3-7.7) k/uL Eosinophils # 0.8 H (0-0.7) k/uL Macrocytosis Marked A ABG pO2 (83-108) mmHg ABG HCO3 (21-25) mmol/L ABG Total CO2 (19-24) mmol/L ABG O2 Saturation (94-97) % Sodium (137-145) mmol/L BUN (7-17) mg/dL Creatinine (0.52-1.04) mg/dL Glucose (74-99) mg/dL POC Glucose (mg/dL) 123 H 145 H (70-110) mg/dL Calcium (8.4-10.2) mg/dL Urine Appearance (Clear) Urine Protein (Negative) Urine Ketones (Negative) Urine Blood (Negative) Ur Leukocyte Esterase (Negative) Urine RBC (0-5) /hpf Urine WBC (0-5) /hpf Amorphous Sediment (None) /hpf Urine Bacteria (None) /hpf Urine Mucus (None) /hpf 03/07/23 03/07/23 03/07/23 Range/Units 05:10 05:15 06:11 WBC (3.8-10.6) k/uL RBC (3.80-5.40) m/uL Hgb (11.4-16.0) gm/dL Hct (34.0-46.0) % MCV (80.0-100.0) fL MCHC (31.0-37.0) g/dL RDW (11.5-15.5) % Plt Count (150-450) k/uL Neutrophils # (1.3-7.7) k/uL Eosinophils # (0-0.7) k/uL Macrocytosis ABG pO2 131 H (83-108) mmHg ABG HCO3 26 H (21-25) mmol/L ABG Total CO2 27 H (19-24) mmol/L ABG O2 Saturation 99.1 H (94-97) % Sodium 133 L (137-145) mmol/L BUN 23 H (7-17) mg/dL Creatinine 3.40 H (0.52-1.04) mg/dL Glucose 116 H (74-99) mg/dL POC Glucose (mg/dL) 121 H (70-110) mg/dL Calcium 7.8 L (8.4-10.2) mg/dL Urine Appearance (Clear) Urine Protein (Negative) Urine Ketones (Negative) Urine Blood (Negative) Ur Leukocyte Esterase (Negative) Urine RBC (0-5) /hpf Urine WBC (0-5) /hpf Amorphous Sediment (None) /hpf Urine Bacteria (None) /hpf Urine Mucus (None) /hpf 03/07/23 03/07/23 Range/Units 08:17 11:58 WBC (3.8-10.6) k/uL RBC (3.80-5.40) m/uL Hgb (11.4-16.0) gm/dL Hct (34.0-46.0) % MCV (80.0-100.0) fL MCHC (31.0-37.0) g/dL RDW (11.5-15.5) % Plt Count (150-450) k/uL Neutrophils # (1.3-7.7) k/uL Eosinophils # (0-0.7) k/uL Macrocytosis ABG pO2 (83-108) mmHg ABG HCO3 (21-25) mmol/L ABG Total CO2 (19-24) mmol/L ABG O2 Saturation (94-97) % Sodium (137-145) mmol/L BUN (7-17) mg/dL Creatinine (0.52-1.04) mg/dL Glucose (74-99) mg/dL POC Glucose (mg/dL) 137 H (70-110) mg/dL Calcium (8.4-10.2) mg/dL Urine Appearance Turbid H (Clear) Urine Protein 3+ H (Negative) Urine Ketones Trace H (Negative) Urine Blood Large H (Negative) Ur Leukocyte Esterase Large H (Negative) Urine RBC 44 H (0-5) /hpf Urine WBC >182 H (0-5) /hpf Amorphous Sediment Rare H (None) /hpf Urine Bacteria Occasional H (None) /hpf Urine Mucus Occasional H (None) /hpf Microbiology - Last 24 Hours (Table) 03/05/23 20:48 Gram Stain - Preliminary Sputum 03/05/23 17:00 Blood Culture - Preliminary Blood Assessment and Plan (1) Failure of outpatient treatment Current Visit: Yes Status: Acute Code(s): Z78.9 - OTHER SPECIFIED HEALTH STATUS SNOMED Code(s): 323732866 (2) Left leg cellulitis Current Visit: No Status: Acute Code(s): L03.116 - CELLULITIS OF LEFT LOWER LIMB SNOMED Code(s): 12931122742892306 Plan: 1patient was in the hospital with worsening cellulitis to left lower extremity with recent culture positive for MSSA Enterococcus and Pseudomonas apparently the patient was unable to get antibiotic as prescribed on her last admission could be the likely reason for worsening of her left lower extremity cellulitis 2-patient also have a wound on the dorsum aspect of the left foot with slough tissue but no significant cellulitis and CT did not show any evidence of abscess 3-local wound care to the left foot wound with the Medihoney followed by moist dressing to be changed daily we also recommend Francisco wrap to the leg to keep the swelling down 4patient did have acute worsening of condition requiring intubation patient also have a CT of the brain completed this afternoon there is a large bilateral chronic subdural hematomas increase in size from the prior exam 5- patient to continue with the Zosyn with overall poor prognosis especially with a CT of the brain findings hospice may be better option Dictation was produced using [employer] dictation software. please excuse any grammatical, word or spelling errors. Time with Patient: Less than 30
[2023-03-07 16:40] VITALS: BP 88/58; TEMP 96.6
[2023-03-07 17:43] LABS: Glucose,Whole Blood 131 mg/dL (70-110)
--- NOTE | 2023-03-07 18:46 | CA ---
Transthoracic Echo Report Name: Edwina Pisano Age: 67 Gender: F : 1955 Exam Date: 03/06/2023 12:20 Exam Location: [facility] Ht (in): 62 Wt (lb): 230 Ordering Physician: Chante Danielson MD Attending/Referring Phys: Account Analyst Becca Robbins RDCS Procedure CPT: Indications: Hypotension and cardiac arrest Cardiac Hx: Technical Quality: Good Contrast 1: Total Dose (mL): Contrast 2: Total Dose (mL): MEASUREMENTS (Male / Female) Normal Values 2D ECHO LV Diastolic Diameter PLAX 4.7 cm 4.2 - 5.9 / 3.9 - 5.3 cm LV Systolic Diameter PLAX 3.3 cm IVS Diastolic Thickness 1.1 cm 0.6 - 1.0 / 0.6 - 0.9 cm LVPW Diastolic Thickness 1.2 cm 0.6 - 1.0 / 0.6 - 0.9 cm LV Relative Wall Thickness 0.5 RV Internal Dim ED PLAX 3.0 cm LA Systolic Diameter LX 3.2 cm 3.0 - 4.0 / 2.7 - 3.8 cm LV Diastolic Volume MOD 4C 89.6 cm??? LV Systolic Volume MOD 4C 42.5 cm??? LV Ejection Fraction MOD 4C 52.5 % LV Cardiac Index MOD 4C 2057.0 cm???/min???m??? LV Diastolic Length 4C 7.6 cm LV Systolic Length 4C 7.1 cm LV Diastolic Volume MOD 2C 78.2 cm??? LV Systolic Volume MOD 2C 39.9 cm??? LV Ejection Fraction MOD 2C 49.0 % LV Cardiac Index MOD 2C 1674.1 cm???/min???m??? LV Diastolic Length 2C 7.4 cm LV Systolic Length 2C 6.8 cm LA Volume 26.5 cm??? 18 - 58 / 22 - 52 cm??? LA Volume Index 12.1 cm???/m??? 16 - 28 cm???/m??? M-MODE Aortic Root Diameter MM 2.9 cm MV E Point Septal Separation 0.7 cm AV Cusp Separation MM 2.0 cm DOPPLER AV Peak Velocity 149.9 cm/s AV Peak Gradient 9.0 mmHg MV Area PHT 9.5 cm??? Mitral E Point Velocity 83.6 cm/s Mitral A Point Velocity 111.1 cm/s Mitral E to A Ratio 0.8 MV Deceleration Time 79.6 ms TR Peak Velocity 276.3 cm/s TR Peak Gradient 30.5 mmHg Right Ventricular Systolic Press 35.1 mmHg FINDINGS Left Ventricle Left ventricular ejection fraction is estimated at 55-60 %. Left ventricular cavity size normal. Mildly increased septal wall thickness. Mildly increased posterior wall thickness. Apical inferior wall hypokinesis Right Ventricle Normal right ventricular size. Mild pulmonary hypertension. Right Atrium Normal right atrial size. Left Atrium Normal left atrial size. Mitral Valve Structurally normal mitral valve. Mild mitral annular calcification. Aortic Valve Trileaflet aortic valve. No aortic valve stenosis or regurgitation. Tricuspid Valve Structurally normal tricuspid valve. Mild tricuspid regurgitation. Pulmonic Valve Structurally normal pulmonic valve. No pulmonic regurgitation. Pericardium No pericardial effusion. Aorta Normal size aortic root and proximal ascending aorta. CONCLUSIONS Apical hypokinesis with mild LV dysfunction Previewed by: Dr. Boy Abarca MD (Electronically Signed) Final Date: 07 March 2023 18:45
[2023-03-07] MEDS ORDERED: MORPHINE SULFATE 2 MG/ML SYRINGE IV PRN (19:44)
[2023-03-07] MEDS ORDERED: MORPHINE SULFATE 4 MG/ML SYRINGE IVP ONE (20:00)
[2023-03-07] MEDS ORDERED: SCOPOLAMINE 1 MG/72 HR PATCH TRANSDERM SCH (20:30)
[2023-03-07] MEDS: MORPHINE SULFATE (100 MG/2 ML) 100 MG in SODIUM CHLORIDE 0.9% 100 ML IV SCH (21:05)
[2023-03-07] MEDS: ATROPINE OPHTH SOLN 1% 5ML BTL SUBLINGUAL PRN (21:40)
[2023-03-07 23:01] VITALS: PULSE 98; RESP 12
[2023-03-08] MEDS: ATROPINE OPHTH SOLN 1% 5ML BTL SUBLINGUAL PRN (03:57)
[2023-03-08] MEDS: MORPHINE SULFATE (100 MG/2 ML) 100 MG in SODIUM CHLORIDE 0.9% 100 ML IV SCH (05:49)
--- NOTE | 2023-03-13 06:56 | P.DS ---
Providers Date of admission: 02/25/23 14:46 Expected date of discharge: 03/08/23 Attending physician: Lisa Zacarias Consults: 02/25/23 17:05 Consult Physician Urgent Consulting Provider: Gama Parkinson Consult Reason/Comments: AGNES Do you want consulting provider notified?: Yes, Notify in am 02/25/23 17:07 Consult Physician Urgent Consulting Provider: Vicenta Croft Consult Reason/Comments: Cellulitis Do you want consulting provider notified?: Yes, Notify in am 03/01/23 11:16 Consult Physician Routine Consulting Provider: Luis Armando Baum Consult Reason/Comments: temporary dialysis catheter placement Do you want consulting provider notified?: Yes 03/05/23 09:03 Consult Physician Routine Consulting Provider: Chante Danielson Consult Reason/Comments: Resp failure Intubated, ESRD HD Do you want consulting provider notified?: Yes Primary care physician: Nael Garcia Hospital Course: Preliminary cause of Septic shock secondary to hepatorenal syndrome Final diagnosis Acute respiratory failure requiring intubation Septic shock Acute on chronic anemia Left lower extremity cellulitis Acute metabolic encephalopathy Acute kidney injury secondary to ATN secondary to hepatorenal syndrome. Started hemodialysis Alcohol-induced liver cirrhosis Ascites s/p paracentesis with 2.5 L fluid removal on 02/27. Anemia of chronic kidney disease No code Discharge disposition Patient has . According to nursing documentation, time of was 0610 on 03/08/2023 and patient had been placed on comfort measures per family request. Total time taken greater than 35 minutes Hospital course 67-year-old lady with past medical history significant for left lower extremity cellulitis, hepatorenal syndrome, liver cirrhosis, who was at [facility] rehab for treatment of left lower extremity cellulitis. Patient was apparently on IV antibiotics cefepime and daptomycin at the facility for left lower external cellulitis, apparently cellulitis was worsening so the ID recommended transferring patient to the hospital. Patient also developed generalized rash over the weekend which is improved. There was no complain of fever or chills. No cold or shortness of breath or chest pain. patient has been having good appetite. Initial lab work done in the ER showed WBC 10.4, crit of 11.4, platelet count 245, sodium 1:30, potassium 4, BUN 59, creatinine 3.86 CRP 5.2 UA done showed large leukocyte Estrace, urine nitrate negative, WBC 22 Patient was admitted to medicine service 02/27/2023atient is currently lying in bed. Awake alert and oriented. No complaints of chest pain or shortness of breath. Denies any nausea vomiting or abdominal pain. Left lower extremity pain is better with medications. Otherwise patient underwent paracentesis with 2.5 l of fluid removal.Laboratory data showed sodium 138 potassium 3.8 chloride 104 bicarb is 19 BUN 61.6 and creatinine 4.2. Patient is being continued on antibiotics daptomycin and cefepime. 02/28/2023atient was awake and oriented. Able to tolerate oral diet this morning. No complaints of chest pain or shortness of breath. Pain is controlled. Left leg is Francisco wrapped. Patient has been afebrile. No cough or sputum production. No headache or dizziness or lightheadedness. Laboratory data showed WBC 12.4 hemoglobin 8.8 and platelets 250 BUN 63.4 and creatinine remains same at 4.2. Patient is being continued on IV Lasix and Aldactone. Nephrology is on board. Patient is also on midodrine. Dr Melgar Assumed care 03/01/2023: Patient seen and evaluated bedside. Care plan discussed with sister and son at bedside. Patient remains disoriented alert to person continue to fidget Minimal urine output, hemoglobin 8.1 creatinine 4.4 BUN of 64. Nephrology rounding plan for initiation of hemodialysis. Lastly consulted for vascular access for hemodialysis 03/02/2023: Patient seen and evaluated bedside. Patient is alert however oriented 0, patient is fidgeting, does not follow commands. Patient undergoing hemodialysis. Blood work shows hemoglobin of 8.8 hematocrit of 27 platelet count of 27. WBC 13.50 serum ammonia of 30 CRP of 5.10 03/03/2023: Patient seen and evaluated bedside, patient is drowsy, disoriented. Underwent hemodialysis yesterday we will follow-up on hematology and serum chemistry. Blood pressure 112/76, heart rate stable, afebrile 03/04/23: Patient seen and evaluated bedside, patient is alert however Disoriented second session of dialysis undergone today. Mentation has improved slightly. Continue patient on oral medications as tolerated. Continue IV Zosyn appreciated input from infectious disease. Serum chemistry reviewed. Does have low magnesium 1.7. To be corrected with hemodialysis. Sodium 136 potassium 3.2. Not medically ready for discharge 03/05/23: Patient was evaluated during CODE BLUE and in ICU. Patient had a brief loss of pulse and was given 1 round of epinephrine. Secondary to encephalopathy patient was intubated. While in ICU. Blood work was obtained which show hemoglobin less than 7. Nephrology following for hemodialysis. Dialysis was stopped secondary to hypotension. During the code. Patient transferred to ICU and family notified. Patient's sister was for notified about the events. Patient prognosis remains guarded. While in ICU patient started on Levophed drip 03/06. Patient seen and examined. Continues to be intubated. Critical care following, planning to give patient's sedation holiday today. Lab work done this morning showed W BC 13, hemoglobin 9.1, platelet count 114 03/07/23: Patient seen and evaluated bedside. Patient remains intubated and sedated on propofol. CT head has been ordered, since patient did not tolerate coming off sedation. Intolerant to hemodialysis blood pressure dropped hence did not receive dialysis today. Goals of care discussed with patient and family Patient remained in the ICU in critical condition overall poor prognosis and family had decided on comfort measures and patient on 610. Please refer to other consultation notes and documentation for further HPI. The impression and plan of care has been dictated by Joan Faust, Nurse Practitioner as directed. Dr. Sadie MD I have performed a history and examination and MDM of this patient, discussed the same with the dictator, and agree with the dictator's assessment and plan as written ,documented as a scribe. Based on total visit time, I have performed more than 50% of the visit. Patient Condition at Discharge: Poor Plan - Discharge Summary Discharge Rx Participant: No New Discharge Prescriptions: No Action Spironolactone [Aldactone] 25 mg PO DAILY #30 tab Cefepime [Maxipime] 1 gm IVPB Q12H 10 Days #20 ml DAPTOmycin 250 mg IV Q2D 10 Days #5 each Folic Acid 1 mg PO DAILY tab Furosemide [Lasix] 40 mg PO DAILY tab Midodrine [ProAmatine] 10 mg PO AC-TID #90 tab Thiamine [Vitamin B-1] 100 mg PO DAILY tab clonazePAM [KlonoPIN] 0.5 mg PO DAILY PRN PRN Reason: Anxiety Acetaminophen Tab [Tylenol] 500 mg PO Q6HR PRN tab PRN Reason: Fever And/ Or Pain Discharge Medication List Spironolactone [Aldactone] 25 mg PO DAILY #30 tab 01/17/23 [Rx] Cefepime [Maxipime] 1 gm IVPB Q12H 10 Days #20 ml 02/18/23 [Rx] DAPTOmycin 250 mg IV Q2D 10 Days #5 each 02/18/23 [Rx] Acetaminophen Tab [Tylenol] 500 mg PO Q6HR PRN tab 02/19/23 [Rx] Folic Acid 1 mg PO DAILY tab 02/19/23 [Rx] Furosemide [Lasix] 40 mg PO DAILY tab 02/19/23 [Rx] Midodrine [ProAmatine] 10 mg PO AC-TID #90 tab 02/19/23 [Rx] Thiamine [Vitamin B-1] 100 mg PO DAILY tab 02/19/23 [Rx] clonazePAM [KlonoPIN] 0.5 mg PO DAILY PRN 02/25/23 [History] Follow up Appointment(s)/Referral(s): Nael Garcia MD [Primary Care Provider] - 1-2 days Discharge Disposition: - Preliminary Cause of Preliminary Cause of : Septic shock secondary to hepatorenal syndrome
== END 2023-03-08 07:25 | disposition expired | DRG 441 ==
LOC: EEVIPCON 11:09 → EC 11:09 → 4SSUR 14:46 → 2SICU 03-05 09:04
PROVIDERS: ADMIT Hospitalist; ATTEND Hospitalist
PROC: 0W9G3ZZ Drainage of Peritoneal Cavity, Percutaneous Approach (ICD-10-PCS; 2023-02-27)
PROC: 3E033XZ Introduction of Vasopressor into Peripheral Vein, Percutaneous Approach (ICD-10-PCS; 2023-02-27)
PROC: 05H933Z Insertion of Infusion Device into Right Brachial Vein, Percutaneous Approach (ICD-10-PCS; 2023-02-27)
PROC: 0BH17EZ Insertion of Endotracheal Airway into Trachea, Via Natural or Artificial Opening (ICD-10-PCS; 2023-03-01)
PROC: 02HV33Z Insertion of Infusion Device into Superior Vena Cava, Percutaneous Approach (ICD-10-PCS; 2023-03-01)
PROC: B5181ZA Fluoroscopy of Superior Vena Cava using Low Osmolar Contrast, Guidance (ICD-10-PCS; 2023-03-01)
PROC: B548ZZA Ultrasonography of Superior Vena Cava, Guidance (ICD-10-PCS; 2023-03-01)
PROC: 5A1D70Z Performance of Urinary Filtration, Intermittent, Less than 6 Hours Per Day (ICD-10-PCS; 2023-03-01)
PROC: 5A1945Z Respiratory Ventilation, 24-96 Consecutive Hours (ICD-10-PCS; principal; 2023-03-01 13:25)
PROC: 4A133B1 Monitoring of Arterial Pressure, Peripheral, Percutaneous Approach (ICD-10-PCS; 2023-03-05)
PROC: 4A133J1 Monitoring of Arterial Pulse, Peripheral, Percutaneous Approach (ICD-10-PCS; 2023-03-05)
PROC: 03HY32Z Insertion of Monitoring Device into Upper Artery, Percutaneous Approach (ICD-10-PCS; 2023-03-05)
PROC: 05H533Z Insertion of Infusion Device into Right Subclavian Vein, Percutaneous Approach (ICD-10-PCS; 2023-03-05)
PROC: B546ZZA Ultrasonography of Right Subclavian Vein, Guidance (ICD-10-PCS; 2023-03-05)
DX: K76.7 Hepatorenal syndrome (principal); A41.9 Sepsis, unspecified organism; G93.41 Metabolic encephalopathy; N17.0 Acute kidney failure with tubular necrosis; J96.01 Acute respiratory failure with hypoxia; R65.21 Severe sepsis with septic shock; L03.116 Cellulitis of left lower limb; I13.0 Hypertensive heart and chronic kidney disease with heart failure and stage 1 through stage 4 chronic kidney disease, or unspecified chronic kidney disease; K70.31 Alcoholic cirrhosis of liver with ascites; R00.1 Bradycardia, unspecified; Z51.5 Encounter for palliative care; I46.9 Cardiac arrest, cause unspecified; F17.210 Nicotine dependence, cigarettes, uncomplicated; D64.9 Anemia, unspecified; I50.9 Heart failure, unspecified; K70.30 Alcoholic cirrhosis of liver without ascites; R21 Rash and other nonspecific skin eruption; S91.302D Unspecified open wound, left foot, subsequent encounter; E11.22 Type 2 diabetes mellitus with diabetic chronic kidney disease; Z66 Do not resuscitate; D63.1 Anemia in chronic kidney disease; I07.1 Rheumatic tricuspid insufficiency; E86.1 Hypovolemia; R62.7 Adult failure to thrive; E87.6 Hypokalemia; E87.70 Fluid overload, unspecified; Z90.710 Acquired absence of both cervix and uterus; Z79.899 Other long term (current) drug therapy; Z71.9 Counseling, unspecified; Z87.19 Personal history of other diseases of the digestive system
CPT/HCPCS: 36410; 36415; 36556; 49083; 51702; 70450; 71045; 76705; 76937; 80048; 80053; 81001; 82140; 82728; 82805; 83540; 83550; 83735; 84132; 84145; 85025; 85027; 85379; 85610; 85652; 86140; 86706; 87040; 87070; 87086; 87205; 87340; 90935; 93306; 93970; 94002; 94003; 94760; 96360; 96361; 99285